=== PATIENT | female | born 1950 | race Caucasian/White ===

== ENCOUNTER 2019-03-15 12:18 | Emergency (ER) | payer MEDICARE ==
--- NOTE | 2019-03-15 12:23 | ERPHSYRPT ---
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 pt states the puncture site on right palmar aspect of index finger continues to ooze blood. that is why she came. pt states she only take one baby asa a day. no other anticoag tx. pt states her tetanus status is utd. Timing/Duration: today Quality: painful Severity: mild Location: hands (right index finger) Possible Causes: other (dog bite) Associated Symptoms: denies symptoms Allergies/Adverse Reactions: Penicillins Allergy (Verified 03/15/19 12:26) - Review of Systems Constitutional: No Symptoms Eyes: No Symptoms Ears, Nose, & Throat: No Symptoms Respiratory: No Symptoms Cardiac: No Symptoms Abdominal/Gastrointestinal: No Symptoms Genitourinary Symptoms: No Symptoms Musculoskeletal: No Symptoms Skin: Other (slow ooze from bite site right index finger) Neurological: No Symptoms Psychological: No Symptoms Endocrine: No Symptoms Hematologic/Lymphatic: No Symptoms Immunological/Allergic: No Symptoms All Other Systems: Reviewed and Negative - Past Medical History Neurological History: No Pertinent History ENT History: No Pertinent History Cardiac History: No Pertinent History Respiratory History: No Pertinent History Endocrine Medical History: No Pertinent History Musculoskeletal History: No Pertinent History GI Medical History: No Pertinent History History: No Pertinent History Psycho-Social History: No Pertinent History Female Reproductive Disorders: No Pertinent History - Past Surgical History Neuro Surgical History: No Pertinent History Cardiac: No Pertinent History Respiratory: No Pertinent History Gastrointestinal: No Pertinent History Genitourinary: No Pertinent History Musculoskeletal: No Pertinent History Female Surgical History: No Pertinent History Significant Family History: no pertinent family hx - Nursing Vital Signs Nursing Vital Signs: Initial Vital Signs Temperature 97.3 F 03/15/19 12:28 Pulse Rate 79 03/15/19 12:28 Respiratory Rate 16 03/15/19 12:28 Blood Pressure 121/63 03/15/19 12:28 O2 Sat by Pulse Oximetry 99 03/15/19 12:28 Pain Scale Pain Intensity 10 - Physical Exam General Appearance: no apparent distress, alert, anxiety Eye Exam: PERRL/EOMI Ears, Nose, Throat Exam: normal ENT inspection, moist mucous membranes Neck Exam: normal inspection, non-tender, supple, full range of motion Respiratory Exam: No chest tenderness Gastrointestinal/Abdomen Exam: No tenderness Pelvic Exam: not done Rectal Exam: not done Back Exam: normal inspection, normal range of motion, No CVA tenderness, No vertebral tenderness Extremity Exam: normal range of motion, pelvis stable, other (nv intact, tendon function intact) Neurologic Exam: alert, oriented x 3, cooperative, 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 slow ooze from bite site) Lymphatic Exam: No adenopathy SpO2 Interpretation: normal O2 Delivery: Room Air - Course Nursing assessment & vital signs reviewed: Yes - Progress Counseled pt/family regarding: diagnosis - Departure Departure Disposition: Home Clinical Impression: Dog bite of index finger Condition: Stable Critical Care Time: No Referrals: SAY OLIVAS [Primary Care Provider] - Additional Instructions: keep pressure dressing in place until the morning of 03/17/2019. after morning of 03/17/2019, may remove dressing and clean daily with soap and water. take medications as prescribed. Prescriptions: Doxycycline Hyclate 100 mg [Vibramycin 100 MG] 100 mg PO BID #14 tab
[2019-03-15 14:05] VITALS: BP 136/76; PULSE 70; O2SAT 97
== END 2019-03-15 14:10 | disposition home or self-care (01) ==
LOC: ED 12:18
DX: S61.250A Open bite of right index finger without damage to nail, initial encounter (principal); W54.0XXA Bitten by dog, initial encounter
CPT/HCPCS: 99283

== ENCOUNTER 2020-04-26 10:07 | Day surgery (SDC) | payer MEDICARE ==
[2020-04-26] MEDS ORDERED: BUPIVACAINE 0.5% VIAL IJ ONE (10:08)
[2020-04-26] MEDS ORDERED: Depo-Medrol 40 MG/ML IM ONE (10:08)
[2020-04-26] MEDS ORDERED: Lactated Ringers 1,000 ML IV ONE (10:08)
[2020-04-26] MEDS ORDERED: DIPRIVAN 200 MG/20 ML IV ONE (11:36)
[2020-04-26] MEDS ORDERED: Ketamine HCl 50 MG/ML ONE (11:37)
--- NOTE | 2020-04-26 12:17 | XRAY ---
Indication: Bilateral SI joint injection. Intraoperative fluoroscopy provided for 26 seconds. 4 digital spot images submitted for interpretation demonstrate posterior needle tip projecting over the inferior left and right SI joint. Correlate with intraoperative findings/report. Incidental bilateral tubal ligation clips.
--- NOTE | 2020-04-26 12:29 | XRAY ---
26 seconds fluoroscopy time in surgery for bilateral SI joint injections.
== END 2020-04-26 12:06 | disposition home or self-care (01) ==
LOC: SDC-PAIN 10:07
PROVIDERS: ATTEND Psychiatry & Neurology Pain Medicine
DX: M46.1 Sacroiliitis, not elsewhere classified (principal); I10 Essential (primary) hypertension; E78.5 Hyperlipidemia, unspecified; G47.30 Sleep apnea, unspecified; K21.9 Gastro-esophageal reflux disease without esophagitis; K58.9 Irritable bowel syndrome, unspecified; Z79.899 Other long term (current) drug therapy
CPT/HCPCS: 27096; 72202; 77002; G0260; J1030; J2704

== ENCOUNTER 2020-06-14 14:12 | Day surgery (SDC) | payer MEDICARE ==
[2020-06-14] MEDS ORDERED: BUPIVACAINE 0.5% VIAL IJ ONE (14:13)
[2020-06-14] MEDS ORDERED: Depo-Medrol 40 MG/ML IM ONE (14:13)
[2020-06-14] MEDS ORDERED: DIPRIVAN 200 MG/20 ML IV ONE (15:17)
[2020-06-14] MEDS ORDERED: Lactated Ringers 1,000 ML IV ONE (16:06)
--- NOTE | 2020-06-14 16:26 | XRAY ---
Indication: Bilateral hip injection. Intraoperative fluoroscopy provided for 28 seconds. 3 digital spot images submitted for interpretation demonstrates needle tip projecting just lateral to the left and right greater trochanter. Small amount of contrast injected for both needle tip placement. Correlate with intraoperative findings/report.
--- NOTE | 2020-06-14 16:34 | XRAY ---
28 seconds fluoroscopy time in surgery for injections of the greater trochanter of both hips.
== END 2020-06-14 15:41 | disposition home or self-care (01) ==
LOC: SDC-PAIN 14:12
PROVIDERS: ATTEND Psychiatry & Neurology Pain Medicine
DX: M70.62 Trochanteric bursitis, left hip (principal); M70.61 Trochanteric bursitis, right hip; I10 Essential (primary) hypertension; E78.5 Hyperlipidemia, unspecified; K21.9 Gastro-esophageal reflux disease without esophagitis; Z79.899 Other long term (current) drug therapy
CPT/HCPCS: 73521; 77002; J1030; J2704

== ENCOUNTER 2020-07-26 14:00 | Day surgery (SDC) | payer MEDICARE ==
[2020-07-26] MEDS ORDERED: Depo-Medrol 40 MG/ML IM ONE (14:01)
[2020-07-26] MEDS ORDERED: Xylocaine 1% Vial 30 ML PF IJ ONE (14:01)
[2020-07-26] MEDS ORDERED: BUPIVACAINE 0.5% VIAL IJ ONE (14:01)
[2020-07-26] MEDS ORDERED: DIPRIVAN 200 MG/20 ML IV ONE ×2 (15:27→15:50)
[2020-07-26] MEDS ORDERED: Lactated Ringers 1,000 ML IV ONE (16:05)
--- NOTE | 2020-07-26 17:03 | XRAY ---
36 seconds of fluoroscopy was used in surgery for a right SI joint RFA.
--- NOTE | 2020-07-26 17:04 | XRAY ---
Indication: Right SI joint RFA. Intraoperative fluoroscopy provided for 36 seconds. 3 digital spot image submitted for interpretation demonstrate 4 posterior needle tips projecting over the right sacrum. Correlate with intraoperative findings/report.
== END 2020-07-26 16:15 | disposition home or self-care (01) ==
LOC: SDC-PAIN 14:00
PROVIDERS: ATTEND Psychiatry & Neurology Pain Medicine
DX: M47.816 Spondylosis without myelopathy or radiculopathy, lumbar region (principal); G47.30 Sleep apnea, unspecified; N39.0 Urinary tract infection, site not specified; K21.9 Gastro-esophageal reflux disease without esophagitis; I10 Essential (primary) hypertension; E78.5 Hyperlipidemia, unspecified; Z79.899 Other long term (current) drug therapy
CPT/HCPCS: 64625; 72202; 77002; J1030; J2001; J2704

== ENCOUNTER 2021-02-21 14:58 | Emergency (ER) | payer MEDICARE ==
--- NOTE | 2021-02-21 15:44 | ERPHSYRPT ---
- History of Present Illness Source: patient Exam Limitations: no limitations Patient Subjective Stated Complaint: Pt c/o of being sick since 02/06 and not getting any better, pt went to [facility] on 02/12 and was told that she had the flu and was given a steroid shot and some medicine, Friday pt went to [facility] and had an x-ray and was told that she had pnuemonia in LLL and was given an inhaler, antibiotic, and tessalon pearles Triage Nursing Assessment: Pt brought self to the ER, hypertensive, rates chest pain when she coughs as 8/10, decreased appetite, drinking a lot, pulses normal, headache, sore throat, cough, chest tightness, SOB, nothing has helped, lungs clear Physician History: 70 yo wf w cough/ST/KING/increasing dyspnea since 02/06/21. Pt has had neg CV19 tests x2 and just finished a course of Doxycycline. She denies fever/N/V/D/chest pain. Pt does not smoke. Timing/Duration: other (02/06/21) Cough Quality/Degree: dry cough Possible Cause: no prior episodes Modifying Factors: Improves With: coughing, exertion Associated Symptoms: cough, headache, nasal congestion, nasal drainage, shor tness of breath, sore throat, No fever, No chills, No chest pain/soreness, No dizziness, No earache, No facial pain, No lightheadedness, No muscle aches, No sinus infection, No wheezing Allergies/Adverse Reactions: Penicillins Allergy (Verified 02/21/21 15:15) Home Medications: Albuterol Sulfate [Albuterol Sulfate Hfa] 2 inh PO Q4H 02/21/21 [History] Alosetron HCl 0.5 mg PO DAILY 02/21/21 [History] Amitriptyline HCl 10 mg [Elavil 10 mg] 10 mg PO DAILY 02/21/21 [History] Aspirin EC 81 mg [Ecotrin 81 mg] 81 mg PO DAILY 02/21/21 [History] Atorvastatin Calcium 10 mg PO DAILY 02/21/21 [History] Benzonatate 200 mg PO TID 02/21/21 [History] Colestipol HCl [Colestid] 1 gm PO BID 02/21/21 [History] Fludrocortisone Acetate 0.1 mg PO DAILY 02/21/21 [History] Fluticasone Propionate [Flonase NASAL] 1 gm NS UD 02/21/21 [History] Midodrine HCl 10 mg PO TID 02/21/21 [History] Hx Tetanus, Diphtheria Vaccination/Date Given: Yes Hx Influenza Vaccination/Date Given: Yes Hx Pneumococcal Vaccination/Date Given: Yes Travel Risk - International Travel Have you traveled outside of the country in past 3 weeks: No - Coronavirus Screening Are you exhibiting any of the following symptoms?: Yes Symptoms: Cough: New Onset, Shortness of Breath, Headaches/Body Aches/Fatigue - Vaccine Status Have you recieved a Covid-19 vaccination: 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 - Vaccination Dates Date of 2cond Vaccination (if applicable): 06/2020 - Review of Systems Constitutional: No Symptoms, Fatigue, Lethargy Eyes: No Symptoms Ears, Nose, & Throat: No Symptoms, Nose Congestion, Nose Discharge, Throat Pain Respiratory: No Symptoms, Cough, Dyspnea Cardiac: No Symptoms Abdominal/Gastrointestinal: No Symptoms Genitourinary Symptoms: No Symptoms Musculoskeletal: No Symptoms Skin: No Symptoms Neurological: No Symptoms Psychological: No Symptoms Endocrine: No Symptoms Hematologic/Lymphatic: No Symptoms Immunological/Allergic: No Symptoms - Past Medical History Pertinent Past Medical History: Yes Neurological History: Migraines ENT History: No Pertinent History Cardiac History: Other Respiratory History: No Pertinent History Endocrine Medical History: No Pertinent History Musculoskeletal History: Arthritis GI Medical History: Irritable Bowel History: No Pertinent History Psycho-Social History: No Pertinent History Female Reproductive Disorders: No Pertinent History Other Medical History: orthostatic hypotension - Past Surgical History Past Surgical History: Yes Neuro Surgical History: No Pertinent History Cardiac: No Pertinent History Respiratory: No Pertinent History Gastrointestinal: Cholecystectomy Genitourinary: No Pertinent History Musculoskeletal: No Pertinent History Female Surgical History: Hysterectomy Other Surgical History: breast reduction and lift, foot - Social History Smoking Status: Never smoker Exposure to second hand smoke: No Drug Use: none Patient Lives Alone: No Significant Family History: no pertinent family hx - Female History Hx Now: No - Nursing Vital Signs Nursing Vital Signs: Initial Vital Signs Temperature 98.3 F 02/21/21 15:01 Pulse Rate 81 02/21/21 15:01 Respiratory Rate 18 02/21/21 15:01 Blood Pressure 178/64 02/21/21 15:01 O2 Sat by Pulse Oximetry 99 02/21/21 15:01 Pain Scale Pain Intensity 2 Hypertensive - Physical Exam General Appearance: no apparent distress Eye Exam: PERRL/EOMI, eyes nml inspection Ears, Nose, Throat Exam: normal ENT inspection, TMs normal, pharynx normal, moist mucous membranes Neck Exam: normal inspection, non-tender, supple, full range of motion, No meningismus, No mass, No Brudzinski, No Kernig's, No carotid bruit Respiratory Exam: normal breath sounds, lungs clear, airway intact, No respiratory distress Cardiovascular Exam: regular rate/rhythm, normal heart sounds, normal peripheral pulses, No murmur Gastrointestinal/Abdomen Exam: soft, normal bowel sounds, No tenderness Back Exam: normal inspection, normal range of motion, No CVA tenderness Extremity Exam: normal inspection, normal range of motion, No pedal edema, No swelling, No tenderness Neurologic Exam: alert, oriented x 3, cooperative, 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, normal mood/affect, nml cerebellar function, nml station & gait Skin Exam: normal color, warm, dry, No rash Lymphatic Exam: No adenopathy SpO2 Interpretation: normal SpO2: 96 O2 Delivery: Room Air - Course EKG Interpreted by Me: RATE (NSR/R81/Mildly prolonged QTc/LAFB/Low voltage) Ordered Tests: Active Orders 24 hr Category Date Time Status EKG-ER Only STAT Care 02/21/21 15:21 Completed CHEST 1 VIEW (PORTABLE) Stat Exams 02/21/21 15:22 Completed CHEST WITHOUT CONTRAST [CT] Stat Exams 02/21/21 16:34 Completed CBC W DIFF Stat Lab 02/21/21 15:30 Completed CMP Stat Lab 02/21/21 15:30 Completed NT PRO BNP Stat Lab 02/21/21 15:30 Completed PROTIME WITH INR Stat Lab 02/21/21 15:30 Completed PTT Stat Lab 02/21/21 15:30 Completed TROPONIN Q3H Lab 02/21/21 15:30 Completed Medication Summary Discontinued Medications Generic Name Dose Route Start Last Admin Trade Name Freq PRN Reason Stop Dose Admin Hydrocodone Bitart/Acetaminophen 10 ml 02/21/21 16:14 02/21/21 16:17 Hydrocodone/Acetaminophen 5 Ml Udcup PO 02/21/21 16:15 10 ml STAT STA Administration Hydrocodone Bitart/Acetaminophen Confirm 02/21/21 16:16 Hydrocodone/Acetaminophen 5 Ml Udcup Administered 02/21/21 16:17 Dose 10 ml .ROUTE .[facility] Lab/Rad Data: Laboratory Result Diagrams 02/21/21 15:30 02/21/21 15:30 Laboratory Results 02/21/21 02/21/21 02/21/21 Range/Units 15:42 15:30 15:30 WBC (4.0-10.5) K/mm3 RBC (4.1-5.4) M/mm3 Hgb (12.0-16.0) gm/dl Hct (35-47) % MCV (78-100) fl MCH (26-32) pg MCHC (32-36) g/dl RDW (11.5-14.0) % Plt Count (150-450) K/mm3 MPV (7.5-11.0) fl Gran % (36.0-66.0) % Eos # (Auto) (0-0.5) Absolute Lymphs (auto) (1.0-4.6) Absolute Monos (auto) (0.0-1.3) Lymphocytes % (24.0-44.0) % Monocytes % (0.0-12.0) % Eosinophils % (0.00-5.0) % Basophils % (0.0-0.4) % Absolute Granulocytes (1.4-6.9) Basophils # (0-0.4) PT 12.0 (9.4-12.5) SECONDS INR 1.02 (0.8-3.0) APTT 39.2 H (25.1-36.5) SECONDS Sodium (137-145) mmol/L Potassium (3.5-5.1) mmol/L Chloride (98-107) mmol/L Carbon Dioxide (22-30) mmol/L Anion Gap (5-15) MEQ/L BUN (7-17) mg/dL Creatinine (0.52-1.04) mg/dL Estimated GFR ML/MIN Glucose (74-106) mg/dL Calcium (8.4-10.2) mg/dL Total Bilirubin (0.2-1.3) mg/dL AST (14-36) U/L ALT (0-35) U/L Alkaline Phosphatase (38-126) U/L Troponin I < 0.012 (0.000-0.034) ng/mL NT-Pro-B Natriuret Pep (0-900) pg/mL Serum Total Protein (6.3-8.2) g/dL Albumin (3.5-5.0) g/dL Influenza Type A Ag NEGATIVE (NEGATIVE) Influenza Type B Ag NEGATIVE (NEGATIVE) RSV (PCR) NEGATIVE (Negative) SARS-CoV-2 (PCR) NEGATIVE (NEGATIVE) 02/21/21 02/21/21 Range/Units 15:30 15:30 WBC 7.2 (4.0-10.5) K/mm3 RBC 4.47 (4.1-5.4) M/mm3 Hgb 14.1 (12.0-16.0) gm/dl Hct 42.2 (35-47) % MCV 94.4 (78-100) fl MCH 31.5 (26-32) pg MCHC 33.4 (32-36) g/dl RDW 13.0 (11.5-14.0) % Plt Count 267 (150-450) K/mm3 MPV 10.6 (7.5-11.0) fl Gran % 59.3 (36.0-66.0) % Eos # (Auto) 0.17 (0-0.5) Absolute Lymphs (auto) 2.07 (1.0-4.6) Absolute Monos (auto) 0.66 (0.0-1.3) Lymphocytes % 28.8 (24.0-44.0) % Monocytes % 9.2 (0.0-12.0) % Eosinophils % 2.4 (0.00-5.0) % Basophils % 0.3 (0.0-0.4) % Absolute Granulocytes 4.27 (1.4-6.9) Basophils # 0.02 (0-0.4) PT (9.4-12.5) SECONDS INR (0.8-3.0) APTT (25.1-36.5) SECONDS Sodium 142 (137-145) mmol/L Potassium 3.4 L (3.5-5.1) mmol/L Chloride 106 (98-107) mmol/L Carbon Dioxide 25 (22-30) mmol/L Anion Gap 14.7 (5-15) MEQ/L BUN 19 H (7-17) mg/dL Creatinine 0.67 (0.52-1.04) mg/dL Estimated GFR > 60.0 ML/MIN Glucose 135 H (74-106) mg/dL Calcium 10.2 (8.4-10.2) mg/dL Total Bilirubin 0.70 (0.2-1.3) mg/dL AST 30 (14-36) U/L ALT 25 (0-35) U/L Alkaline Phosphatase 51 (38-126) U/L Troponin I (0.000-0.034) ng/mL NT-Pro-B Natriuret Pep 203 (0-900) pg/mL Serum Total Protein 7.3 (6.3-8.2) g/dL Albumin 4.7 (3.5-5.0) g/dL Influenza Type A Ag (NEGATIVE) Influenza Type B Ag (NEGATIVE) RSV (PCR) (Negative) SARS-CoV-2 (PCR) (NEGATIVE) - Progress Progress Note: 02/21/21 18:11 Wells Criteria for PE 0.0 02/21/21 20:35 Cough med given in ER Counseled pt/family regarding: lab results, diagnosis, need for follow-up, rad results - Departure Departure Disposition: Home Clinical Impression: Cough Condition: Stable Critical Care Time: No Referrals: SAY RENTERIA [Primary Care Provider] - Follow up/PCP as directed Instructions: Cough, Adult (DC) Additional Instructions: Follow up with your family MD in 1-2 days Start Levaquin once a day for 5 days Tussionex as needed for cough Return to ER for chest pain/worsening cough/Increasing shortness of breath/Temperature greater than 100.5 Prescriptions: Hydrocodone/Chlorphen P-Stirex [Hydrocodone-Chlorph ER Susp (TUSSIONEX)] 5 ml PO [id number] PRN 6 Days #60 ml MDD 10 ML PRN Reason: Cough Levofloxacin [Levofloxacin 500 MG Tablet] 500 mg PO DAILY #5 tablet
[2021-02-21 15:45] LABS: Absolute Neutrophil Ct (ANC) 4.27 (1.4-6.9); Basophil (Absolute #) 0.02 (0-0.4); Eosinophil % 2.4 % (0.00-5.0); Eosinophil (Absolute #) 0.17 (0-0.5); Hematocrit 42.2 % (35-47); Hemoglobin 14.1 gm/dl (12.0-16.0); Lymphocyte (Absolute #) 2.07 (1.0-4.6); Lymphocytes % 28.8 % (24.0-44.0); Mean Cell Volume 94.4 fl (78-100); Mean Corpuscular Hemoglobin 31.5 pg (26-32); Mean Corpuscular Hgb Concent. 33.4 g/dl (32-36); Mean Platelet Volume 10.6 fl (7.5-11.0); Monocyte (Absolute #) 0.66 (0.0-1.3); Monocytes % 9.2 % (0.0-12.0); Neutrophil % 59.3 % (36.0-66.0); Platelet Count 267 K/mm3 (150-450); Red Blood Count 4.47 M/mm3 (4.1-5.4); White Blood Count 7.2 K/mm3 (4.0-10.5)
[2021-02-21 15:53] LABS: INR 1.02 (0.8-3.0)
[2021-02-21 15:55] LABS: PTT 39.2 SECONDS (25.1-36.5)
[2021-02-21 16:07] LABS: ALBUMIN 4.7 g/dL (3.5-5.0); ALKALINE PHOSPHATASE 51 U/L (38-126); ANION GAP 14.7 MEQ/L (5-15); BLOOD UREA NITROGEN 19 mg/dL (7-17); CHLORIDE 106 mmol/L (98-107); Calcium 10.2 mg/dL (8.4-10.2); Carbon Dioxide 25 mmol/L (22-30); Creatinine 1 0.67 mg/dL (0.52-1.04); EST GLOMERULAR FILTRATION RATE > 60.0 ML/MIN; Glucose 135 mg/dL (74-106); NT PRO BNP 203 pg/mL (0-900); Potassium 3.4 mmol/L (3.5-5.1); SGOT/AST 30 U/L (14-36); SGPT/ALT 25 U/L (0-35); SODIUM 142 mmol/L (137-145); Total Protein 7.3 g/dL (6.3-8.2)
--- NOTE | 2021-02-21 16:07 | XRAY ---
Indication: Cough. Comparison: October 23, 2018. Portable chest lest inflated with new minimal left base subsegmental atelectasis/scarring. Remaining heart and lungs unremarkable again with incidental left calcified granulomas. Bony thorax intact again with mild osteopenia. Impression: Nonacute chest with chronic features.
[2021-02-21] MEDS ORDERED: HYDROCODONE-ACETAMIN 2.5-108/5 ML SOLUTION PO STA (16:14)
[2021-02-21] MEDS ORDERED: HYDROCODONE-ACETAMIN 2.5-108/5 ML SOLUTION ONE (16:16)
[2021-02-21 16:22] LABS: INFLUENZA A NEGATIVE (NEGATIVE); INFLUENZA B NEGATIVE (NEGATIVE); RESPIRATORY SYNCTIAL VIRUS NEGATIVE (Negative); SARS-CoV-2 Xpert Express NEGATIVE (NEGATIVE)
--- NOTE | 2021-02-21 17:24 | XRAY ---
Indication: Chronic cough. Short of breath. Pneumonia. Multiple contiguous axial images obtained through the chest without contrast. Comparison: None Lungs demonstrates minimal bibasilar fibrosis/scarring and tiny left lower lobe calcified granuloma. No suspicious pulmonary mass, infiltrate, or effusion. Heart not enlarged. Aorta is normal in course and caliber. [place] left hilar calcified nodes. Small hiatal hernia. Bony thorax intact. Limited upper abdomen demonstrates hepatic/splenic calcified granulomas. Impression: 1. Small hiatal hernia and old granulomatous disease. 2. Remaining CT chest without contrast exam is negative.
[2021-02-21 17:38] VITALS: O2SAT 96
[2021-02-21 18:20] VITALS: BP 160/76; PULSE 78
== END 2021-02-21 18:21 | disposition home or self-care (01) ==
LOC: ED 14:58
DX: R05.1 Acute cough (principal); J02.9 Acute pharyngitis, unspecified; R51.9 Headache, unspecified; R06.00 Dyspnea, unspecified; R09.81 Nasal congestion; I95.1 Orthostatic hypotension; Z79.891 Long term (current) use of opiate analgesic; Z79.899 Other long term (current) drug therapy; R07.89 Other chest pain
CPT/HCPCS: 0241U; 36415; 71045; 71250; 80053; 83880; 84484; 85025; 85610; 85730; 93005; 99284; A9270-GY

== ENCOUNTER 2021-04-04 07:02 | Day surgery (SDC) | payer MEDICARE ==
[2021-04-04] MEDS ORDERED: Sodium Chloride 0.9% 10 ML FLUSH Syringe IJ ONE (07:03)
[2021-04-04] MEDS ORDERED: Depo-Medrol 40 MG/ML IM ONE ×2 (07:03)
[2021-04-04] MEDS ORDERED: BUPIVACAINE 0.5% VIAL IJ ONE (07:03)
[2021-04-04] MEDS ORDERED: DIPRIVAN 200 MG/20 ML IV ONE (08:36)
[2021-04-04] MEDS ORDERED: Lactated Ringers 1,000 ML IV ONE (09:03)
--- NOTE | 2021-04-04 10:24 | XRAY ---
Indication: Left greater trochanter bursa injection. Intraoperative fluoroscopy provided for 9 seconds. Single digital spot image obtained prone submitted for interpretation demonstrates needle tip lateral to the left greater trochanter. Small amount of contrast injected for needle tip placement. Correlate with intraoperative findings/report.
--- NOTE | 2021-04-04 10:33 | XRAY ---
Indication: Left L3-L5 transforaminal EVELIA. Intraoperative fluoroscopy provided for 24 seconds. 4 digital spot images submitted for interpretation demonstrates posterior needle tips projecting over the expected left L3 and L4 nerve root. Small amount of contrast injected for needle tip placement. Correlate with intraoperative findings/report.
--- NOTE | 2021-04-04 10:33 | XRAY ---
9 seconds fluoroscopy time in surgery for injection of the left hip greater trochanteric bursa.
--- NOTE | 2021-04-04 10:33 | XRAY ---
24 seconds fluoroscopy time in surgery for left L3-L5 transforaminal EVELIA.
== END 2021-04-04 09:05 | disposition home or self-care (01) ==
LOC: SDC-PAIN 07:02
PROVIDERS: ATTEND Psychiatry & Neurology Pain Medicine
DX: M54.16 Radiculopathy, lumbar region (principal); M16.12 Unilateral primary osteoarthritis, left hip; I10 Essential (primary) hypertension; Z79.899 Other long term (current) drug therapy
CPT/HCPCS: 20610; 64483; 64484; 72100; 73501; 77002; 77003; J1030; J2704; Q9966

== ENCOUNTER 2021-09-26 09:32 | Day surgery (SDC) | payer MEDICARE ==
[2021-09-26] MEDS ORDERED: Marcaine Mpf 0.5% Vial 30 Ml IJ ONE (09:33)
[2021-09-26] MEDS ORDERED: Depo-Medrol 40 MG/ML IM ONE (09:33)
[2021-09-26] MEDS ORDERED: Sodium Chloride 0.9(Preservative Free) 10 ML IJ ONE (09:33)
[2021-09-26] MEDS ORDERED: Xylocaine-Mpf 2% 5 Ml Vial ONE (11:05)
[2021-09-26] MEDS ORDERED: Lactated Ringers 1,000 ML IV ONE (11:16)
[2021-09-26] MEDS ORDERED: DIPRIVAN 200 MG/20 ML IV ONE (11:26)
--- NOTE | 2021-09-26 16:36 | XRAY ---
Indication: Left L3-L5 transforaminal EVELIA. Intraoperative fluoroscopy provided for 16 seconds. 3 digital spot image submitted for interpretation demonstrates posterior needle tips projecting over the expected left L3 and L4 nerve roots. Small amount of contrast injected for needle tip placement. Correlate with intraoperative findings/report.
--- NOTE | 2021-09-26 16:38 | XRAY ---
Indication: Left hip injection. Intraoperative fluoroscopy provided for 7 seconds. Single digital spot image obtained prone submitted for interpretation demonstrates needle tip lateral to the left greater trochanter. Small amount of contrast injected for needle tip placement. Correlate with intraoperative findings/report.
--- NOTE | 2021-09-26 16:46 | XRAY ---
16 seconds fluoroscopy time in surgery for left L3-L5 transforaminal EVELIA.
--- NOTE | 2021-09-26 16:47 | XRAY ---
7 seconds fluoroscopy time in surgery for injection of the greater trochanter of the left hip..
== END 2021-09-26 11:30 | disposition home or self-care (01) ==
LOC: SDC-PAIN 09:32
PROVIDERS: ATTEND Psychiatry & Neurology Pain Medicine
DX: M54.16 Radiculopathy, lumbar region (principal); M16.12 Unilateral primary osteoarthritis, left hip; Z79.899 Other long term (current) drug therapy
CPT/HCPCS: 20610; 64483; 64484; 72100; 73501; 77002; 77003; J1030; J2704; Q9966

== ENCOUNTER 2021-12-07 10:11 | Inpatient (IN) | payer MEDICARE ==
[2021-12-07] MEDS ORDERED: Sodium Chloride 0.9% 1000 ML 1,000 ML IV STA (10:58)
[2021-12-07] MEDS ORDERED: Zofran 4 MG/2 ML VIAL IV ONE (10:58)
[2021-12-07] MEDS ORDERED: Zofran 4 MG/2 ML VIAL ONE (11:00)
[2021-12-07] MEDS ORDERED: Sodium Chloride 0.9% 1000 ML 1,000 ML ONE ×3 (11:00→22:03)
[2021-12-07 11:16] LABS: Absolute Neutrophil Ct (ANC) 7.17 x10^3/uL (1.4-6.9); Basophil (Absolute #) 0.05 x10^3/uL (0-0.4); Eosinophil % 2.4 % (0.00-5.0); Eosinophil (Absolute #) 0.23 x10^3/uL (0-0.5); Hematocrit 38.8 % (35-47); Hemoglobin 12.7 g/dL (12.0-16.0); Lymphocyte (Absolute #) 1.37 x10^3/uL (1.0-4.6); Mean Cell Volume 97.7 fL (78-100); Mean Corpuscular Hgb Concent. 32.7 g/dL (32-36); Mean Platelet Volume 10.1 fL (7.5-11.0); Monocyte (Absolute #) 0.89 x10^3/uL (0.0-1.3); Monocytes % 9.1 % (0.0-12.0); Neutrophil % 73.4 % (36.0-66.0); Platelet Count 270 x10^3/uL (150-450); Red Blood Count 3.97 x10^6/uL (4.1-5.4); Red Cell Distribution Width 12.5 % (11.5-14.0); White Blood Count 9.8 x10^3/uL (4.0-10.5)
[2021-12-07 11:29] LABS: ALBUMIN 4.3 g/dL (3.5-5.0); ALKALINE PHOSPHATASE 59 U/L (38-126); ANION GAP 15.8 MEQ/L (5-15); BLOOD UREA NITROGEN 15 mg/dL (7-17); CHLORIDE 107 mmol/L (98-107); Calcium 9.3 mg/dL (8.4-10.2); Carbon Dioxide 21 mmol/L (22-30); EST GLOMERULAR FILTRATION RATE > 60.0 ML/MIN; Glucose 115 mg/dL (74-106); LIPASE 83 U/L (23-300); Potassium 3.6 mmol/L (3.5-5.1); SGOT/AST 21 U/L (14-36); SGPT/ALT 14 U/L (0-35); SODIUM 140 mmol/L (137-145); Total Protein 7.5 g/dL (6.3-8.2)
[2021-12-07] MEDS ORDERED: Sodium Chloride 0.9% 1000 ML 1,000 ML IV SCH (12:15)
[2021-12-07 12:30] LABS: Appearance SLIGHTLY CLOUDY (CLEAR); Bilirubin NEGATIVE (NEGATIVE); Glucose NEGATIVE (NEGATIVE)
[2021-12-07 12:31] LABS: Dipstick done @ ? MAIN LAB; Ketones TRACE (NEGATIVE); Nitrite POSITIVE (NEGATIVE); Protein,Urine Dip NEGATIVE (Negative); RBC MODERATE Ery/ul (0-5); Urobilinogen 0.2 mg/dL (0-1)
[2021-12-07 12:37] LABS: Bacteria MANY /HPF (NEGATIVE); Epithelial Cells RARE /HPF (FEW); Mucus SLIGHT /HPF (NEGATIVE); WBC >100 /HPF (0-5)
[2021-12-07 12:39] LABS: Urine Cultured Indicated? YES
--- NOTE | 2021-12-07 12:51 | XRAY ---
Indication: Lower abdomen cramping and diarrhea. Multiple contiguous axial images obtained through the abdomen and pelvis without contrast. Comparison: November 12, 2020 Lung bases again demonstrates pulmonary emphysema with minimal left base fibrosis/scarring. Heart not enlarged. Stable small hiatal hernia. Noncontrasted stomach and bowel loops remains nonobstructed. Normal appendix. Colonic radiopacities again either ingested medication, bismuth, or barium. There remains scattered descending and sigmoid diverticulosis. Sigmoid colon now demonstrates moderate wall thickening with minimal stranding favoring diverticulitis. Tiny free fluid presumed reactive but no walled off fluid collection or free air. Again small exophytic right renal cyst, hepatic/splenic ossified granulomas, cholecystectomy, and bilateral pelvic surgical clips. Remaining liver, pancreas, spleen, adrenal glands, kidneys, ureters, bladder, and aorta are unremarkable for noncontrast exam. Impression: 1. Again colonic diverticulosis with new CT findings as detailed favoring moderate sigmoid diverticulitis with tiny free fluid. 2. Again small hiatal hernia, right renal cyst, and old granulomatous disease.
[2021-12-07] MEDS ORDERED: TYLENOL 325 MG PO STA (12:52)
[2021-12-07] MEDS ORDERED: FLAGYL 500 MG IVPB 500 MG/100 ML BAG IV STA (12:58)
[2021-12-07] MEDS ORDERED: TYLENOL 325 MG ONE (12:58)
[2021-12-07] MEDS ORDERED: LEVOFLOXACIN 750MG/150ML D5W 750 MG/150 ML BAG IV STA (12:58)
[2021-12-07] MEDS ORDERED: LEVOFLOXACIN 750MG/150ML D5W 750 MG/150 ML BAG IV ONE (13:03)
[2021-12-07 13:51] LABS: INFLUENZA A NEGATIVE (NEGATIVE); INFLUENZA B NEGATIVE (NEGATIVE); RESPIRATORY SYNCTIAL VIRUS NEGATIVE (Negative); SARS-CoV-2 Xpert Express NEGATIVE (NEGATIVE)
--- NOTE | 2021-12-07 14:06 | ERPHSYRPT ---
- History of Present Illness Time Seen by Provider: 12/07/21 11:06 Historian: patient Exam Limitations: no limitations Patient Subjective Stated Complaint: PT states "I have irritable bowel and I had constipation for a week and I have horrible hemmrhoids and I was taking stool softners and laxatives and now my belly hurts and I have diarrhea really bad." Triage Nursing Assessment: Pt presented alert and oriented X 3, skin wpd. pt ambulates with an upright steady gait, able to speak in full complete sentences pt in no apparent respiratory distress. pt will moan every now and then. Physician History: 70 years old female with a history of irritable bowel syndrome predominant diarrhea presented in the ER having multiple episodes of loose to watery stool since yesterday with progressive worsening. Patient reports she took some stool softener yesterday and her diarrhea got really worse and has some blood-tinged w hich she thinks is more of because of her hemorrhoids. She is complaining of generalized cramping which comes and goes. No fever or chills reported. No nausea or vomiting. Reports having similar symptoms in the past as well. While in the ER before I interviewed patient she had to go back and forth to the bathroom 3-4 times. No history of C. difficile in the past. Timing/Duration: yesterday, intermittent, gradual onset, worse Activities at Onset: rest Quality: cramping Abdominal Pain Onset Location: generalized abdomen Pain Radiation: no radiation Severity of Pain-Max: moderate Severity of Pain-Current: mild Modifying Factors: Worsens With: defecating Associated Symptoms: diarrhea, fatigue, weakness, No nausea, No shortness of breath Previous symptoms: same symptoms as today Allergies/Adverse Reactions: Penicillins Allergy (Verified 02/21/21 15:15) Home Medications: Albuterol Sulfate [Albuterol Sulfate Hfa] 2 inh PO Q4H 02/21/21 [History] Alosetron HCl 0.5 mg PO DAILY 02/21/21 [History] Aspirin EC 81 mg [Ecotrin 81 mg] 81 mg PO DAILY 02/21/21 [History] Atorvastatin Calcium 10 mg PO DAILY 02/21/21 [History] Benzonatate 200 mg PO TID 02/21/21 [History] Colestipol HCl [Colestid] 1 gm PO BID 02/21/21 [History] Fludrocortisone Acetate 0.1 mg PO DAILY 02/21/21 [History] Fluticasone Propionate [Flonase NASAL] 1 gm NS UD 02/21/21 [History] Midodrine HCl 10 mg PO TID 02/21/21 [History] Hx Tetanus, Diphtheria Vaccination/Date Given: Yes Hx Influenza Vaccination/Date Given: Yes Hx Pneumococcal Vaccination/Date Given: Yes Immunizations Up to Date: Yes Travel Risk - International Travel Have you traveled outside of the country in past 3 weeks: No - Coronavirus Screening Are you exhibiting any of the following symptoms?: Yes Symptoms: Vomiting/Diarrhea - Vaccine Status Have you recieved a Covid-19 vaccination: Yes [place]: Moderna - Vaccination Dates Date of 2cond Vaccination (if applicable): 06/2020 - Review of Systems Constitutional: Fatigue, Weakness Eyes: No Symptoms Ears, Nose, & Throat: No Symptoms Respiratory: No Symptoms Cardiac: No Symptoms Abdominal/Gastrointestinal: Abdominal Pain, Diarrhea Genitourinary Symptoms: No Symptoms Musculoskeletal: No Symptoms Skin: No Symptoms Neurological: No Symptoms Psychological: No Symptoms Endocrine: No Symptoms Hematologic/Lymphatic: No Symptoms Immunological/Allergic: No Symptoms - Past Medical History Pertinent Past Medical History: Yes Neurological History: Migraines ENT History: No Pertinent History Cardiac History: Other Respiratory History: No Pertinent History Endocrine Medical History: No Pertinent History Musculoskeletal History: Arthritis GI Medical History: Irritable Bowel History: No Pertinent History Psycho-Social History: No Pertinent History Female Reproductive Disorders: No Pertinent History Other Medical History: orthostatic hypotension - Past Surgical History Past Surgical History: Yes Neuro Surgical History: No Pertinent History Cardiac: No Pertinent History Respiratory: No Pertinent History Gastrointestinal: Cholecystectomy Genitourinary: No Pertinent History Musculoskeletal: No Pertinent History Female Surgical History: Hysterectomy Other Surgical History: breast reduction and lift, foot - Social History Smoking Status: Never smoker Exposure to second hand smoke: No Drug Use: none Patient Lives Alone: No Significant Family History: no pertinent family hx - Nursing Vital Signs Nursing Vital Signs: Initial Vital Signs Temperature 97.3 F 12/07/21 10:38 Pulse Rate 95 H 12/07/21 10:38 Respiratory Rate 24 12/07/21 10:38 Blood Pressure 127/87 12/07/21 10:38 O2 Sat by Pulse Oximetry 97 12/07/21 10:38 Pain Scale Pain Intensity 2 - Physical Exam General Appearance: no apparent distress Eye Exam: PERRL/EOMI Ears, Nose, Throat Exam: normal ENT inspection Neck Exam: normal inspection, full range of motion Respiratory Exam: normal breath sounds, lungs clear Cardiovascular Exam: regular rate/rhythm, normal heart sounds Gastrointestinal/Abdomen Exam: soft, normal bowel sounds, tenderness (Minimal generalized) Back Exam: normal inspection, normal range of motion Extremity Exam: normal inspection, normal range of motion Neurologic Exam: alert, oriented x 3, cooperative Skin Exam: normal color SpO2 Interpretation: normal SpO2: 98 O2 Delivery: Room Air Ordered Tests: Active Orders 24 hr Category Date Time Status ABDOMEN AND PELVIS W/0 CONTRAS [CT] Stat Exams 12/07/21 12:13 Completed CBC W DIFF Stat Lab 12/07/21 11:10 Completed CMP Stat Lab 12/07/21 11:10 Completed CULTURE,URINE Stat Lab 12/07/21 12:15 Received LIPASE Stat Lab 12/07/21 11:10 Completed UA W/RFX CULTURE Stat Lab 12/07/21 12:15 Completed Transfer Order Routine Transfer 12/07/21 Ordered Medication Summary Generic Name Dose Route Start Last Admin Trade Name Freq PRN Reason Stop Dose Admin Sodium Chloride 1,000 mls @ 100 mls/hr 12/07/21 12:15 12/07/21 12:20 Sodium Chloride 0.9% 1000 Ml IV 01/06/22 12:14 100 mls/hr .Q10H SIMONA Administration Levofloxacin/Dextrose 750 mg in 150 mls @ 100 mls/hr 12/07/21 12:58 12/07/21 13:05 Levofloxacin 750mg/150ml D5w IV 12/07/21 14:27 100 ml/hr STAT STA 100 mls/hr Administration Discontinued Medications Generic Name Dose Route Start Last Admin Trade Name Freq PRN Reason Stop Dose Admin Acetaminophen 975 mg 12/07/21 12:52 12/07/21 12:59 Acetaminophen 325 Mg Tablet PO 12/07/21 12:53 975 mg STAT STA Administration Acetaminophen Confirm 12/07/21 12:58 Acetaminophen 325 Mg Tablet Administered 12/07/21 12:59 Dose 975 mg .ROUTE .STK-MED ONE Sodium Chloride 1,000 mls @ 999 mls/hr 12/07/21 10:58 12/07/21 12:18 Sodium Chloride 0.9% 1000 Ml IV 12/07/21 11:58 Infused .Q1H1M STA Infusion Sodium Chloride Confirm 12/07/21 11:00 Sodium Chloride 0.9% 1000 Ml Administered 12/07/21 11:01 Dose 1,000 mls @ ud .ROUTE .STK-MED ONE Metronidazole 500 mg in 100 mls @ 200 mls/hr 12/07/21 12:58 Flagyl 500 Mg Ivpb IV 12/07/21 13:27 STAT STA Levofloxacin/Dextrose Confirm 12/07/21 13:03 Levofloxacin 750mg/150ml D5w Administered 12/07/21 13:04 Dose 750 mg in 150 mls @ ud IV .STK-MED ONE Ondansetron HCl 4 mg 12/07/21 10:58 12/07/21 11:02 Ondansetron Hcl 4 Mg/2 Ml Vial IV 12/07/21 10:59 4 mg STAT ONE Administration Ondansetron HCl Confirm 12/07/21 11:00 Ondansetron Hcl 4 Mg/2 Ml Vial Administered 12/07/21 11:01 Dose 4 mg .ROUTE .STK-MED ONE Lab/Rad Data: Laboratory Result Diagrams 12/07/21 11:10 12/07/21 11:10 Laboratory Results 12/07/21 12/07/21 12/07/21 Range/Units 13:10 12:15 11:10 WBC (4.0-10.5) x10^3/uL RBC (4.1-5.4) x10^6/uL Hgb (12.0-16.0) g/dL Hct (35-47) % MCV (78-100) fL MCH (26-32) pg MCHC (32-36) g/dL RDW (11.5-14.0) % Plt Count (150-450) x10^3/uL MPV (7.5-11.0) fL Gran % (36.0-66.0) % Immature Gran % (Auto) (0.00-0.4) % Nucleat RBC Rel Count (0.00-0.1) % Eos # (Auto) (0-0.5) x10^3/uL Immature Gran # (Auto) (0.00-0.03) x10^3u/L Absolute Lymphs (auto) (1.0-4.6) x10^3/uL Absolute Monos (auto) (0.0-1.3) x10^3/uL Absolute Nucleated RBC (0.00-0.01) x10^3u/L Lymphocytes % (24.0-44.0) % Monocytes % (0.0-12.0) % Eosinophils % (0.00-5.0) % Basophils % (0.0-0.4) % Absolute Granulocytes (1.4-6.9) x10^3/uL Basophils # (0-0.4) x10^3/uL Sodium 140 (137-145) mmol/L Potassium 3.6 (3.5-5.1) mmol/L Chloride 107 (98-107) mmol/L Carbon Dioxide 21 L (22-30) mmol/L Anion Gap 15.8 H (5-15) MEQ/L BUN 15 (7-17) mg/dL Creatinine 0.80 (0.52-1.04) mg/dL Estimated GFR > 60.0 ML/MIN Glucose 115 H (74-106) mg/dL Calcium 9.3 (8.4-10.2) mg/dL Total Bilirubin 1.20 (0.2-1.3) mg/dL AST 21 (14-36) U/L ALT 14 (0-35) U/L Alkaline Phosphatase 59 (38-126) U/L Serum Total Protein 7.5 (6.3-8.2) g/dL Albumin 4.3 (3.5-5.0) g/dL Lipase 83 (23-300) U/L Urinalys Dipstick Clnc MAIN LAB Urine Color YELLOW (YELLOW) Urine Appearance SLIGHTLY CLOUDY A (CLEAR) Urine pH 6.0 (5-6) Ur Specific [place] 1.010 (1.005-1.025) POC Urine Protein Conf NEGATIVE (Negative) Urine Ketones TRACE A (NEGATIVE) Urine Nitrite POSITIVE A (NEGATIVE) Urine Bilirubin NEGATIVE (NEGATIVE) Urine Urobilinogen 0.2 (0-1) mg/dL Urine Leukocytes LARGE A (NEGATIVE) Urine WBC (Auto) >100 A (0-5) /HPF Urine RBC (Auto) 3-5 A (0-2) /HPF U Hyaline Cast (Auto) 3-5 A (0-2) /LPF U Epithel Cells (Auto) RARE (FEW) /HPF Urine Bacteria (Auto) MANY A (NEGATIVE) /HPF Urine RBC MODERATE A (0-5) Sebas/ul Urine Mucus (Auto) SLIGHT A (NEGATIVE) /HPF Ur Culture Indicated? YES Urine Glucose NEGATIVE (NEGATIVE) mg/dL Influenza Type A Ag NEGATIVE (NEGATIVE) Influenza Type B Ag NEGATIVE (NEGATIVE) RSV (PCR) NEGATIVE (Negative) SARS-CoV-2 (PCR) NEGATIVE (NEGATIVE) 12/07/21 Range/Units 11:10 WBC 9.8 (4.0-10.5) x10^3/uL RBC 3.97 L (4.1-5.4) x10^6/uL Hgb 12.7 (12.0-16.0) g/dL Hct 38.8 (35-47) % MCV 97.7 (78-100) fL MCH 32.0 (26-32) pg MCHC 32.7 (32-36) g/dL RDW 12.5 (11.5-14.0) % Plt Count 270 (150-450) x10^3/uL MPV 10.1 (7.5-11.0) fL Gran % 73.4 H (36.0-66.0) % Immature Gran % (Auto) 0.6 H (0.00-0.4) % Nucleat RBC Rel Count 0.0 (0.00-0.1) % Eos # (Auto) 0.23 (0-0.5) x10^3/uL Immature Gran # (Auto) 0.06 H (0.00-0.03) x10^3u/L Absolute Lymphs (auto) 1.37 (1.0-4.6) x10^3/uL Absolute Monos (auto) 0.89 (0.0-1.3) x10^3/uL Absolute Nucleated RBC 0.00 (0.00-0.01) x10^3u/L Lymphocytes % 14.0 L (24.0-44.0) % Monocytes % 9.1 (0.0-12.0) % Eosinophils % 2.4 (0.00-5.0) % Basophils % 0.5 (0.0-0.4) % Absolute Granulocytes 7.17 H (1.4-6.9) x10^3/uL Basophils # 0.05 (0-0.4) x10^3/uL Sodium (137-145) mmol/L Potassium (3.5-5.1) mmol/L Chloride (98-107) mmol/L Carbon Dioxide (22-30) mmol/L Anion Gap (5-15) MEQ/L BUN (7-17) mg/dL Creatinine (0.52-1.04) mg/dL Estimated GFR ML/MIN Glucose (74-106) mg/dL Calcium (8.4-10.2) mg/dL Total Bilirubin (0.2-1.3) mg/dL AST (14-36) U/L ALT (0-35) U/L Alkaline Phosphatase (38-126) U/L Serum Total Protein (6.3-8.2) g/dL Albumin (3.5-5.0) g/dL Lipase (23-300) U/L Urinalys Dipstick Clnc Urine Color (YELLOW) Urine Appearance (CLEAR) Urine pH (5-6) Ur Specific [place] (1.005-1.025) POC Urine Protein Conf (Negative) Urine Ketones (NEGATIVE) Urine Nitrite (NEGATIVE) Urine Bilirubin (NEGATIVE) Urine Urobilinogen (0-1) mg/dL Urine Leukocytes (NEGATIVE) Urine WBC (Auto) (0-5) /HPF Urine RBC (Auto) (0-2) /HPF U Hyaline Cast (Auto) (0-2) /LPF U Epithel Cells (Auto) (FEW) /HPF Urine Bacteria (Auto) (NEGATIVE) /HPF Urine RBC (0-5) Sebas/ul Urine Mucus (Auto) (NEGATIVE) /HPF Ur Culture Indicated? Urine Glucose (NEGATIVE) mg/dL Influenza Type A Ag (NEGATIVE) Influenza Type B Ag (NEGATIVE) RSV (PCR) (Negative) SARS-CoV-2 (PCR) (NEGATIVE) - Progress Progress: improved, re-examined Progress Note: 12/07/21 14:00 She is given fluids, feeling much better on reevaluation. Does not want any pain medication but Tylenol which she is given. Has normal white count, grossly unremarkable chemistries except for some element of dehydration. Does have acute UTI and CT findings consistent with acute sigmoid diverticulitis without perforation or abscess. Started on Levaquin and Flagyl and will continue with hydration. Discussed with Dr. Espino who is covering for Dr. Read, reviewed hi story, work-up and patient is excepted for admission. Plan discussed with patient and family who understand and agree with it. Discussed with .: Tayo Will see patient in: hospital (observation) Counseled pt/family regarding: lab results, diagnosis, rad results - Departure Departure Disposition: Observation Clinical Impression: Sigmoid diverticulitis, Acute UTI Condition: Stable Critical Care Time: No Referrals: SAY RENTERIA [Primary Care Provider] - Follow up/PCP as directed
[2021-12-07] MEDS ORDERED: DUONEB 0.5-3 MG/3 ml Neb IH PRN (14:19)
[2021-12-07] MEDS ORDERED: TYLENOL 325 MG PO PRN (14:19)
[2021-12-07] MEDS: MORPHINE SULFATE 2 MG INJ IV PRN ×2 (17:12→21:10)
[2021-12-07] MEDS: FLAGYL 500 MG IVPB 500 MG/100 ML BAG IV SCH (17:25)
[2021-12-07] MEDS ORDERED: PROTONIX 40 MG IV IV ONE (19:23)
[2021-12-07] MEDS ORDERED: Pepcid 20 MG PO PRN (19:23)
[2021-12-07] MEDS ORDERED: NON-FORMULARY ITEM (Midodrine Hcl [Midodrine Hcl] 10 MG Tablet) PO SCH (22:00)
[2021-12-07] MEDS ORDERED: NON-FORMULARY ITEM (Topiramate 25 Mg*** [Topamax 25 Mg***] 25 MG Capsule) PO SCH (22:00)
[2021-12-07] MEDS: Sodium Chloride 0.9% 1000 ML 1,000 ML IV SCH (22:38)
[2021-12-08] MEDS: Zofran 4 MG/2 ML VIAL IV PRN (03:04)
[2021-12-08] MEDS: MORPHINE SULFATE 2 MG INJ IV PRN (03:04)
[2021-12-08] MEDS: FLAGYL 500 MG IVPB 500 MG/100 ML BAG IV SCH ×5 (03:13→23:50)
[2021-12-08 06:14] LABS: Basophil (Absolute #) 0.03 x10^3/uL (0-0.4); Eosinophil % 3.9 % (0.00-5.0); Eosinophil (Absolute #) 0.28 x10^3/uL (0-0.5); Hematocrit 35.6 % (35-47); Hemoglobin 11.9 g/dL (12.0-16.0); Lymphocyte (Absolute #) 1.17 x10^3/uL (1.0-4.6); Lymphocytes % 16.3 % (24.0-44.0); Mean Cell Volume 94.2 fL (78-100); Mean Corpuscular Hemoglobin 31.5 pg (26-32); Mean Corpuscular Hgb Concent. 33.4 g/dL (32-36); Mean Platelet Volume 10.7 fL (7.5-11.0); Monocyte (Absolute #) 0.66 x10^3/uL (0.0-1.3); Monocytes % 9.2 % (0.0-12.0); Neutrophil % 69.6 % (36.0-66.0); Platelet Count 269 x10^3/uL (150-450); Red Blood Count 3.78 x10^6/uL (4.1-5.4); Red Cell Distribution Width 12.7 % (11.5-14.0); White Blood Count 7.2 x10^3/uL (4.0-10.5)
[2021-12-08 06:30] LABS: ALKALINE PHOSPHATASE 62 U/L (38-126); ANION GAP 13.3 MEQ/L (5-15); BLOOD UREA NITROGEN 7 mg/dL (7-17); CHLORIDE 111 mmol/L (98-107); Calcium 8.8 mg/dL (8.4-10.2); Carbon Dioxide 21 mmol/L (22-30); Creatinine 1 0.57 mg/dL (0.52-1.04); EST GLOMERULAR FILTRATION RATE > 60.0 ML/MIN; Glucose 94 mg/dL (74-106); Potassium 3.4 mmol/L (3.5-5.1); SGOT/AST 29 U/L (14-36); SGPT/ALT 17 U/L (0-35); SODIUM 142 mmol/L (137-145); Total Protein 7.2 g/dL (6.3-8.2)
[2021-12-08] MEDS: ATARAX 25 MG PO PRN ×4 (06:41→23:50)
[2021-12-08] MEDS: PROAMATINE PO SCH ×3 (08:11→17:51)
[2021-12-08] MEDS: Protonix 40MG Tablet PO SCH (08:11)
[2021-12-08] MEDS: Sodium Chloride 0.9% 1000 ML 1,000 ML IV SCH ×2 (09:41→22:17)
[2021-12-08] MEDS: Levofloxacin 500MG/100ML D5W 500 MG/100 ML BAG IV SCH (09:42)
[2021-12-08] MEDS ORDERED: PROTONIX 40 MG IV IV SCH (10:00)
--- NOTE | 2021-12-08 10:54 | PCM.HP ---
History of Present Illness - Chief Complaint Chief Complaint: c/o watery diarrhea History of Present Illness: is a 70 year old female.with a history of irritable bowel syndrome predominant diarrhea presented in the ER having multiple episodes of loose to watery stool since yesterday with progressive worsening. Patient reports she took some stool softener yesterday and her diarrhea got really worse and has some blood-tinged which she thinks is more of because of her hemorrhoids. She is complaining of generalized cramping which comes and goes. No fever or chills reported. No nausea or vomiting. Reports having similar symptoms in the past as well. While in the ER before I interviewed patient she had to go back and forth to the bathroom 3-4 times. No history of C. difficile in the past. Timing/Duration: yesterday, intermittent, gradual onset, worse Activities at Onset: rest Quality: cramping Abdominal Pain Onset Location: generalized abdomen Pain Radiation: no radiation Severity of Pain-Max: moderate Severity of Pain-Current: mild Modifying Factors: Worsens With: defecating Associated Symptoms: diarrhea, fatigue, weakness, No nausea, No shortness of breath Previous symptoms: same symptoms as today - Review of Systems Constitutional: No Fever, No Chills Eyes: No Symptoms Ears, Nose, & Throat: No Symptoms Respiratory: No Cough, No Short Of Breath Cardiac: No Chest Pain, No Edema, No Syncope Abdominal/Gastrointestinal: Abdominal Pain, Diarrhea, No Nausea, No Vomiting, No Hematemesis, No Hematochezia, No Melena, No Dysphagia, No Appetite Changes Genitourinary Symptoms: No Dysuria Musculoskeletal: No Back Pain, No Neck Pain Skin: No Rash Neurological: No Dizziness, No Focal Weakness, No Sensory Changes Psychological: No Symptoms Endocrine: No Symptoms Hematologic/Lymphatic: No Symptoms Immunological/Allergic: No Symptoms Medications & Allergies Home Medications: Home Medication List Alosetron HCl 0.5 mg PO DAILY 02/21/21 [History Confirmed 12/07/21] Aspirin EC 81 mg [Ecotrin 81 mg] 81 mg PO DAILY 02/21/21 [History Confirmed 12/07/21] Atorvastatin Calcium 10 mg PO DAILY 02/21/21 [History Confirmed 12/07/21] Colestipol HCl [Colestid] 1 gm PO BID 02/21/21 [History Confirmed 12/07/21] Fluticasone Propionate [Flonase NASAL] 1 gm NS UD PRN 02/21/21 [History Confirmed 12/07/21] Midodrine HCl 10 mg PO TID 02/21/21 [History Confirmed 12/07/21] Hyoscyamine Sulfate 1 - 2 tab PO QID PRN 12/07/21 [History Confirmed 12/07/21] PANTOPRAZOLE 40 mg Tablet [Protonix 40MG Tablet] 40 mg PO DAILY 12/07/21 [History Confirmed 12/07/21] Allergies/Adverse Reactions: Allergies Allergy/AdvReac Type Severity Reaction Status Date / Time Penicillins Allergy Verified 02/21/21 15:15 - Past Medical History Past Medical History: Yes Neurological History: Migraines ENT History: No Pertinent History Cardiac History: Other Respiratory History: No Pertinent History Endocrine Medical History: No Pertinent History Musculoskelatal History: Arthritis GI Medical History: Irritable Bowel History: No Pertinent History Pyscho-Social History: No Pertinent History Reproductive Disorders: No Pertinent History Comment: orthostatic hypotension - Female History Are you now?: No - Past Surgical History Past Surgical History: Yes Neuro Surgical History: No Pertinent History Cardiac History: No Pertinent History Respiratory Surgery: No Pertinent History GI Surgical History: Cholecystectomy Genitourinary Surgical Hx: No Pertinent History Musculskeletal Surgical Hx: No Pertinent History Female Surgical History: Hysterectomy Other Surgical History: breast reduction and lift, foot - Social History Smoking Status: Never smoker Exposure to second hand smoke: No Alcohol: None Drug Use: none Significant Family History: no pertinent family hx - Physical Exam Vital Signs: Vital Signs - 24 hr Temp Pulse Resp BP Pulse Ox 12/08/21 08:00 98.6 F 88 18 133/60 97 12/08/21 04:00 97.1 F 72 16 148/70 95 12/08/21 00:00 97.5 F 77 16 144/66 96 12/07/21 20:21 74 16 98 12/07/21 20:00 97 F 74 16 134/62 98 12/07/21 16:02 71 14 100 12/07/21 16:00 97 F 75 19 134/62 100 12/07/21 14:58 98 12/07/21 14:29 97.3 F 81 17 137/61 99 12/07/21 14:28 97.3 F 81 18 137/61 99 12/07/21 13:25 97.3 F 78 20 147/77 98 12/07/21 11:27 97.3 F 81 18 143/74 99 General Appearance: no apparent distress, alert Neurologic Exam: alert, oriented x 3, cooperative, normal mood/affect, nml cerebellar function, nml station & gait, sensation nml, No motor deficits Eye Exam: PERRL/EOMI, eyes nml inspection Ears, Nose, Throat Exam: normal ENT inspection, TMs normal, pharynx normal, moist mucous membranes Neck Exam: normal inspection, non-tender, supple, full range of motion Respiratory Exam: normal breath sounds, lungs clear, No respiratory distress Cardiovascular Exam: regular rate/rhythm, normal heart sounds, normal peripheral pulses Gastrointestinal/Abdomen Exam: soft, normal bowel sounds, No tenderness, No mass Back Exam: normal inspection, normal range of motion, No CVA tenderness, No vertebral tenderness Extremity Exam: normal inspection, normal range of motion, pelvis stable Skin Exam: normal color, warm, dry, No rash Lymphatic Exam: No adenopathy Results - Labs Lab/Micro Results: Lab Results-Last 24 Hours 12/07/21 12/07/21 12/07/21 Range/Units 11:10 11:10 12:15 WBC 9.8 (4.0-10.5) x10^3/uL RBC 3.97 L (4.1-5.4) x10^6/uL Hgb 12.7 (12.0-16.0) g/dL Hct 38.8 (35-47) % MCV 97.7 (78-100) fL MCH 32.0 (26-32) pg MCHC 32.7 (32-36) g/dL RDW 12.5 (11.5-14.0) % Plt Count 270 (150-450) x10^3/uL MPV 10.1 (7.5-11.0) fL Gran % 73.4 H (36.0-66.0) % Immature Gran % (Auto) 0.6 H (0.00-0.4) % Nucleat RBC Rel Count 0.0 (0.00-0.1) % Eos # (Auto) 0.23 (0-0.5) x10^3/uL Immature Gran # (Auto) 0.06 H (0.00-0.03) x10^3u/L Absolute Lymphs (auto) 1.37 (1.0-4.6) x10^3/uL Absolute Monos (auto) 0.89 (0.0-1.3) x10^3/uL Absolute Nucleated RBC 0.00 (0.00-0.01) x10^3u/L Lymphocytes % 14.0 L (24.0-44.0) % Monocytes % 9.1 (0.0-12.0) % Eosinophils % 2.4 (0.00-5.0) % Basophils % 0.5 (0.0-0.4) % Absolute Granulocytes 7.17 H (1.4-6.9) x10^3/uL Basophils # 0.05 (0-0.4) x10^3/uL Sodium 140 (137-145) mmol/L Potassium 3.6 (3.5-5.1) mmol/L Chloride 107 (98-107) mmol/L Carbon Dioxide 21 L (22-30) mmol/L Anion Gap 15.8 H (5-15) MEQ/L BUN 15 (7-17) mg/dL Creatinine 0.80 (0.52-1.04) mg/dL Estimated GFR > 60.0 ML/MIN Glucose 115 H (74-106) mg/dL Calcium 9.3 (8.4-10.2) mg/dL Total Bilirubin 1.20 (0.2-1.3) mg/dL AST 21 (14-36) U/L ALT 14 (0-35) U/L Alkaline Phosphatase 59 (38-126) U/L Serum Total Protein 7.5 (6.3-8.2) g/dL Albumin 4.3 (3.5-5.0) g/dL Lipase 83 (23-300) U/L Urinalys Dipstick Clnc MAIN LAB Urine Color YELLOW (YELLOW) Urine Appearance SLIGHTLY CLOUDY A (CLEAR) Urine pH 6.0 (5-6) Ur Specific [place] 1.010 (1.005-1.025) POC Urine Protein Conf NEGATIVE (Negative) Urine Ketones TRACE A (NEGATIVE) Urine Nitrite POSITIVE A (NEGATIVE) Urine Bilirubin NEGATIVE (NEGATIVE) Urine Urobilinogen 0.2 (0-1) mg/dL Urine Leukocytes LARGE A (NEGATIVE) Urine WBC (Auto) >100 A (0-5) /HPF Urine RBC (Auto) 3-5 A (0-2) /HPF U Hyaline Cast (Auto) 3-5 A (0-2) /LPF U Epithel Cells (Auto) RARE (FEW) /HPF Urine Bacteria (Auto) MANY A (NEGATIVE) /HPF Urine RBC MODERATE A (0-5) Sebas/ul Urine Mucus (Auto) SLIGHT A (NEGATIVE) /HPF Ur Culture Indicated? YES Urine Glucose NEGATIVE (NEGATIVE) mg/dL Influenza Type A Ag (NEGATIVE) Influenza Type B Ag (NEGATIVE) RSV (PCR) (Negative) SARS-CoV-2 (PCR) (NEGATIVE) 12/07/21 12/08/21 12/08/21 Range/Units 13:10 05:29 05:29 WBC 7.2 (4.0-10.5) x10^3/uL RBC 3.78 L (4.1-5.4) x10^6/uL Hgb 11.9 L (12.0-16.0) g/dL Hct 35.6 (35-47) % MCV 94.2 (78-100) fL MCH 31.5 (26-32) pg MCHC 33.4 (32-36) g/dL RDW 12.7 (11.5-14.0) % Plt Count 269 (150-450) x10^3/uL MPV 10.7 (7.5-11.0) fL Gran % 69.6 H (36.0-66.0) % Immature Gran % (Auto) 0.6 H (0.00-0.4) % Nucleat RBC Rel Count 0.0 (0.00-0.1) % Eos # (Auto) 0.28 (0-0.5) x10^3/uL Immature Gran # (Auto) 0.04 H (0.00-0.03) x10^3u/L Absolute Lymphs (auto) 1.17 (1.0-4.6) x10^3/uL Absolute Monos (auto) 0.66 (0.0-1.3) x10^3/uL Absolute Nucleated RBC 0.00 (0.00-0.01) x10^3u/L Lymphocytes % 16.3 L (24.0-44.0) % Monocytes % 9.2 (0.0-12.0) % Eosinophils % 3.9 (0.00-5.0) % Basophils % 0.4 (0.0-0.4) % Absolute Granulocytes 5.00 (1.4-6.9) x10^3/uL Basophils # 0.03 (0-0.4) x10^3/uL Sodium 142 (137-145) mmol/L Potassium 3.4 L (3.5-5.1) mmol/L Chloride 111 H (98-107) mmol/L Carbon Dioxide 21 L (22-30) mmol/L Anion Gap 13.3 (5-15) MEQ/L BUN 7 (7-17) mg/dL Creatinine 0.57 (0.52-1.04) mg/dL Estimated GFR > 60.0 ML/MIN Glucose 94 (74-106) mg/dL Calcium 8.8 (8.4-10.2) mg/dL Total Bilirubin 0.70 (0.2-1.3) mg/dL AST 29 (14-36) U/L ALT 17 (0-35) U/L Alkaline Phosphatase 62 (38-126) U/L Serum Total Protein 7.2 (6.3-8.2) g/dL Albumin 4.0 (3.5-5.0) g/dL Lipase (23-300) U/L Urinalys Dipstick Clnc Urine Color (YELLOW) Urine Appearance (CLEAR) Urine pH (5-6) Ur Specific [place] (1.005-1.025) POC Urine Protein Conf (Negative) Urine Ketones (NEGATIVE) Urine Nitrite (NEGATIVE) Urine Bilirubin (NEGATIVE) Urine Urobilinogen (0-1) mg/dL Urine Leukocytes (NEGATIVE) Urine WBC (Auto) (0-5) /HPF Urine RBC (Auto) (0-2) /HPF U Hyaline Cast (Auto) (0-2) /LPF U Epithel Cells (Auto) (FEW) /HPF Urine Bacteria (Auto) (NEGATIVE) /HPF Urine RBC (0-5) Sebas/ul Urine Mucus (Auto) (NEGATIVE) /HPF Ur Culture Indicated? Urine Glucose (NEGATIVE) mg/dL Influenza Type A Ag NEGATIVE (NEGATIVE) Influenza Type B Ag NEGATIVE (NEGATIVE) RSV (PCR) NEGATIVE (Negative) SARS-CoV-2 (PCR) NEGATIVE (NEGATIVE) Microbiology 12/07/21 12:15 Urine Culture - Preliminary Clean Catch Midstream GRAM NEGATIVE ID AND SENSITIVITY PENDING - Radiology Impressions Radiology Exams & Impressions: Radiology Procedures Category Date Time Status ABDOMEN AND PELVIS W/0 CONTRAS [CT] Stat Exams 12/07/21 12:[address]/ABDOMEN AND PELVIS W/0 CONTRAS Indication: Lower abdomen cramping and diarrhea. Multiple contiguous axial images obtained through the abdomen and pelvis without contrast. Comparison: November 12, 2020 Lung bases again demonstrates pulmonary emphysema with minimal left base fibrosis/scarring. Heart not enlarged. Stable small hiatal hernia. Noncontrasted stomach and bowel loops remains nonobstructed. Normal appendix. Colonic radiopacities again either ingested medication, bismuth, or barium. There remains scattered descending and sigmoid diverticulosis. Sigmoid colon now demonstrates moderate wall thickening with minimal stranding favoring diverticulitis. Tiny free fluid presumed reactive but no walled off fluid collection or free air. Again small exophytic right renal cyst, hepatic/splenic ossified granulomas, cholecystectomy, and bilateral pelvic surgical clips. Remaining liver, pancreas, spleen, adrenal glands, kidneys, ureters, bladder, and aorta are unremarkable for noncontrast exam. Impression: 1. Again colonic diverticulosis with new CT findings as detailed favoring moderate sigmoid diverticulitis with tiny free fluid. 2. Again small hiatal hernia, right renal cyst, and old granulomatous disease. - Other Procedures and Tests Respiratory Therapy 12/07/21 14:33 Respiratory Therapy Assessment DAILY Assessment/Plan (1) Sigmoid diverticulitis Current Visit: Yes Status: Acute Assessment & Plan: Chief Complaint Diagnosis Acute sigmoid diverticulitis Allergies Allergy/AdvReac Type Severity Reaction Status Date / Time Penicillins Allergy Verified 02/21/21 15:15 Vital Signs (Last 24 hours) Temp Pulse Resp BP Pulse Ox 12/08/21 08:00 98.6 F 88 18 133/60 97 12/08/21 04:00 97.1 F 72 16 148/70 95 12/08/21 00:00 97.5 F 77 16 144/66 96 12/07/21 20:21 74 16 98 12/07/21 20:00 97 F 74 16 134/62 98 12/07/21 16:02 71 14 100 12/07/21 16:00 97 F 75 19 134/62 100 12/07/21 14:58 98 12/07/21 14:29 97.3 F 81 17 137/61 99 12/07/21 14:28 97.3 F 81 18 137/61 99 12/07/21 13:25 97.3 F 78 20 147/77 98 12/07/21 11:27 97.3 F 81 18 143/74 99 Home Medications Medication Instructions Recorded Confirmed Last Taken Type Hyoscyamine Sulfate 1 - 2 tab PO QID PRN 12/07/21 12/07/21 Unknown History PANTOPRAZOLE 40 mg Tablet 40 mg PO DAILY 12/07/21 12/07/21 12/06/21 History [Protonix 40MG Tablet] Current Medications Generic Name Dose Route Start Last Admin Trade Name Freq PRN Reason Stop Dose Admin Acetaminophen 650 mg 12/07/21 14:19 Acetaminophen 325 Mg Tablet PO 01/06/22 14:18 Q4H PRN PRN PAIN AND/OR FEVER Albuterol/Ipratropium 3 ml 12/07/21 14:19 Ipratropium/Albuterol Sulfate 3 Ml Ampul.Neb IH 01/06/22 14:18 Q4HPRN PRN SHORTNESS OF BREATH/WHEEZING Famotidine 20 mg 12/07/21 19:23 12/07/21 21:10 Famotidine 20 Mg Tablet PO 01/06/22 19:22 20 mg BIDPRN PRN Administration INDIGESTION Hydroxyzine HCl 25 mg 12/08/21 06:31 12/08/21 06:41 Hydroxyzine Hcl 25 Mg Tablet PO 01/07/22 06:30 25 mg QID PRN PRN Administration ANXIETY Levofloxacin/Dextrose 500 mg in 100 mls @ 100 mls/hr 12/08/21 10:00 12/08/21 09:42 Levofloxacin 500mg/100ml D5w IV 01/07/22 09:59 100 mls/hr Q24H10 SIMONA Administration Metronidazole 500 mg in 100 mls @ 200 mls/hr 12/07/21 18:00 12/08/21 08:07 Flagyl 500 Mg Ivpb IV 01/06/22 17:59 200 mls/hr Q6HT SIMONA Administration Sodium Chloride 1,000 mls @ 100 mls/hr 12/07/21 22:45 12/08/21 09:41 Sodium Chloride 0.9% 1000 Ml IV 01/06/22 22:44 100 mls/hr .Q10H SIMONA Administration Midodrine 10 mg 12/08/21 07:30 12/08/21 08:11 Midodrine Hcl 5 Mg Tablet PO 01/07/22 07:29 10 mg TIDAC SIMONA Administration Morphine Sulfate 2 mg 12/07/21 14:19 12/08/21 03:04 Morphine Sulfate 2 Mg/Ml Inj IV 12/12/21 14:18 2 mg Q4H PRN PRN Administration PAIN Ondansetron HCl 4 mg 12/07/21 14:19 12/08/21 03:04 Ondansetron Hcl 4 Mg/2 Ml Vial IV 01/06/22 14:18 4 mg Q6H PRN PRN Administration NAUSEA/VOMITING Pantoprazole Sodium 40 mg 12/08/21 10:00 12/08/21 08:11 Protonix (Pantoprazole) 40 Mg Tablet PO 01/07/22 09:59 40 mg DAILY SIMONA Administration Simethicone 80 mg 12/08/21 06:54 Simethicone 80 Mg Tab.Chew PO 01/07/22 06:53 QID PRN PRN GAS Discontinued Medications Generic Name Dose Route Start Last Admin Trade Name Freq PRN Reason Stop Dose Admin Acetaminophen 975 mg 12/07/21 12:52 12/07/21 12:59 Acetaminophen 325 Mg Tablet PO 12/07/21 12:53 975 mg STAT STA Administration Acetaminophen Confirm 12/07/21 12:58 Acetaminophen 325 Mg Tablet Administered 12/07/21 12:59 Dose 975 mg .ROUTE .STK-MED ONE Sodium Chloride 1,000 mls @ 999 mls/hr 12/07/21 10:58 12/07/21 12:18 Sodium Chloride 0.9% 1000 Ml IV 12/07/21 11:58 Infused .Q1H1M STA Infusion Sodium Chloride Confirm 12/07/21 11:00 Sodium Chloride 0.9% 1000 Ml Administered 12/07/21 11:01 Dose 1,000 mls @ ud .ROUTE .STK-MED ONE Sodium Chloride 1,000 mls @ 100 mls/hr 12/07/21 12:15 12/07/21 12:20 Sodium Chloride 0.9% 1000 Ml IV 01/06/22 12:14 100 mls/hr .Q10H SIMONA Administration Levofloxacin/Dextrose 750 mg in 150 mls @ 100 mls/hr 12/07/21 12:58 12/07/21 13:05 Levofloxacin 750mg/150ml D5w IV 12/07/21 14:27 100 ml/hr STAT STA 100 mls/hr Administration Metronidazole 500 mg in 100 mls @ 200 mls/hr 12/07/21 12:58 12/07/21 14:37 Flagyl 500 Mg Ivpb IV 12/07/21 13:27 Not Given STAT STA Levofloxacin/Dextrose Confirm 12/07/21 13:03 Levofloxacin 750mg/150ml D5w Administered 12/07/21 13:04 Dose 750 mg in 150 mls @ ud IV .STK-MED ONE Sodium Chloride Confirm 12/07/21 12:18 Sodium Chloride 0.9% 1000 Ml Administered 12/07/21 12:19 Dose 1,000 mls @ ud .ROUTE .STK-MED ONE Sodium Chloride Confirm 12/07/21 22:03 Sodium Chloride 0.9% 1000 Ml Administered 12/07/21 22:04 Dose 1,000 mls @ ud .ROUTE .STK-MED ONE Non-Formulary Medication 25 mg 12/07/21 22:00 Topiramate 25 Mg [Topamax 25 Mg] PO 01/06/22 21:59 BID SIMONA Ondansetron HCl 4 mg 12/07/21 10:58 12/07/21 11:02 Ondansetron Hcl 4 Mg/2 Ml Vial IV 12/07/21 10:59 4 mg STAT ONE Administration Ondansetron HCl Confirm 12/07/21 11:00 Ondansetron Hcl 4 Mg/2 Ml Vial Administered 12/07/21 11:01 Dose 4 mg .ROUTE .STK-MED ONE Pantoprazole Sodium 40 mg 12/08/21 10:00 Pantoprazole 40 Mg Vial IV 01/07/22 09:59 Q24H10 SIMONA Pantoprazole Sodium 40 mg 12/07/21 19:23 12/07/21 19:37 Pantoprazole 40 Mg Vial IV 12/07/21 19:24 40 mg ONCE ONE Administration Intake & Output (Last 24 hours) 12/05/21 12/06/21 12/07/21 12/08/21 11:59 11:59 11:59 11:59 Intake Total 1464 Balance 1464 Weight 60.4 kg 60.2 kg Microbiology Results (Last 24 hours) 12/07/21 12:15 Clean Catch Midstream Urine Culture - Preliminary GRAM NEGATIVE ID AND SENSITIVITY PENDING Laboratory Results (Last 24 hours) 12/08/21 12/08/21 12/07/21 05:29 05:29 13:10 WBC 7.2 RBC 3.78 L Hgb 11.9 L Hct 35.6 MCV 94.2 MCH 31.5 MCHC 33.4 RDW 12.7 Plt Count 269 MPV 10.7 Gran % 69.6 H Immature Gran % (Auto) 0.6 H Nucleat RBC Rel Count 0.0 Eos # (Auto) 0.28 Immature Gran # (Auto) 0.04 H Absolute Lymphs (auto) 1.17 Absolute Monos (auto) 0.66 Absolute Nucleated RBC 0.00 Lymphocytes % 16.3 L Monocytes % 9.2 Eosinophils % 3.9 Basophils % 0.4 Absolute Granulocytes 5.00 Basophils # 0.03 Sodium 142 Potassium 3.4 L Chloride 111 H Carbon Dioxide 21 L Anion Gap 13.3 BUN 7 Creatinine 0.57 Estimated GFR > 60.0 Glucose 94 Calcium 8.8 Total Bilirubin 0.70 AST 29 ALT 17 Alkaline Phosphatase 62 Serum Total Protein 7.2 Albumin 4.0 Lipase Urinalys Dipstick Clnc Urine Color Urine Appearance Urine pH Ur Specific [place] POC Urine Protein Conf Urine Ketones Urine Nitrite Urine Bilirubin Urine Urobilinogen Urine Leukocytes Urine WBC (Auto) Urine RBC (Auto) U Hyaline Cast (Auto) U Epithel Cells (Auto) Urine Bacteria (Auto) Urine RBC Urine Mucus (Auto) Ur Culture Indicated? Urine Glucose Influenza Type A Ag NEGATIVE Influenza Type B Ag NEGATIVE RSV (PCR) NEGATIVE SARS-CoV-2 (PCR) NEGATIVE 12/07/21 12/07/21 12/07/21 12:15 11:10 11:10 WBC 9.8 RBC 3.97 L Hgb 12.7 Hct 38.8 MCV 97.7 MCH 32.0 MCHC 32.7 RDW 12.5 Plt Count 270 MPV 10.1 Gran % 73.4 H Immature Gran % (Auto) 0.6 H Nucleat RBC Rel Count 0.0 Eos # (Auto) 0.23 Immature Gran # (Auto) 0.06 H Absolute Lymphs (auto) 1.37 Absolute Monos (auto) 0.89 Absolute Nucleated RBC 0.00 Lymphocytes % 14.0 L Monocytes % 9.1 Eosinophils % 2.4 Basophils % 0.5 Absolute Granulocytes 7.17 H Basophils # 0.05 Sodium 140 Potassium 3.6 Chloride 107 Carbon Dioxide 21 L Anion Gap 15.8 H BUN 15 Creatinine 0.80 Estimated GFR > 60.0 Glucose 115 H Calcium 9.3 Total Bilirubin 1.20 AST 21 ALT 14 Alkaline Phosphatase 59 Serum Total Protein 7.5 Albumin 4.3 Lipase 83 Urinalys Dipstick Clnc MAIN LAB Urine Color YELLOW Urine Appearance SLIGHTLY CLOUDY A Urine pH 6.0 Ur Specific [place] 1.010 POC Urine Protein Conf NEGATIVE Urine Ketones TRACE A Urine Nitrite POSITIVE A Urine Bilirubin NEGATIVE Urine Urobilinogen 0.2 Urine Leukocytes LARGE A Urine WBC (Auto) >100 A Urine RBC (Auto) 3-5 A U Hyaline Cast (Auto) 3-5 A U Epithel Cells (Auto) RARE Urine Bacteria (Auto) MANY A Urine RBC MODERATE A Urine Mucus (Auto) SLIGHT A Ur Culture Indicated? YES Urine Glucose NEGATIVE Influenza Type A Ag Influenza Type B Ag RSV (PCR) SARS-CoV-2 (PCR) Orders (Last 24 hours) Category Date Time Status Bedrest ROUTINE Activity 12/07/21 14:19 Active Up With Assistance ROUTINE Activity 12/07/21 14:19 Active Code Status Order ROUTINE Care 12/07/21 14:19 Active Fall Protocol Q1H Care 12/07/21 14:19 Active IV Care Q6H Care 12/07/21 14:[address] in Observation ROUTINE Care 12/07/21 14:19 Active Tre [place] ROUTINE Care 12/07/21 14:19 Active Weight,Daily 0600 Care 12/07/21 14:19 Active Clear Liquid Diet 12/07/21 Dinner Active ABDOMEN AND PELVIS W/0 CONTRAS [CT] Stat Exams 12/07/21 12:13 Completed CBC W DIFF AM.LAB Lab 12/08/21 05:29 Completed CBC W DIFF Stat Lab 12/07/21 11:10 Completed CMP AM.LAB Lab 12/08/21 05:29 Completed CMP Stat Lab 12/07/21 11:10 Completed COVID/FLU/RSV Panel Stat Lab 12/07/21 13:10 Completed CULTURE,URINE Stat Lab 12/07/21 12:15 Results LIPASE Stat Lab 12/07/21 11:10 Completed UA W/RFX CULTURE Stat Lab 12/07/21 12:15 Completed Acetaminophen 325 mg [Tylenol 325 mg] Med 12/07/21 14:19 Active 650 mg PO Q4H PRN PRN Acetaminophen 325 mg [Tylenol 325 mg] Med 12/07/21 12:58 Discontinued 975 mg .ROUTE .STK-MED ONE Acetaminophen 325 mg [Tylenol 325 mg] Med 12/07/21 12:52 Discontinued 975 mg PO STAT STA Albuterol/Ipratropium 3ml Neb* [DUONEB 0.5-3 MG/3 ml Med 12/07/21 14:19 Active Neb] 3 ml IH Q4HPRN PRN Famotidine 20 mg [Pepcid 20 MG] Med 12/07/21 19:23 Active 20 mg PO BIDPRN PRN Hydroxyzine HCl 25 mg [Atarax 25 mg] Med 12/08/21 06:31 Active 25 mg PO QID PRN PRN Levofloxacin [Levofloxacin 500MG/100ML D5W] Med 12/08/21 10:00 Active 500 mg in 100 ml IV Q24H10 Levofloxacin [Levofloxacin 750Mg/150Ml D5w] Med 12/07/21 12:58 Discontinued 750 mg in 150 ml IV STAT Levofloxacin [Levofloxacin 750Mg/150Ml D5w] Med 12/07/21 13:03 Discontinued 750 mg in 150 ml IV UD Metronidazole 500 mg Premix [Flagyl 500 mg Ivpb] Med 12/07/21 18:00 Active 500 mg in 100 ml IV Q6HT Metronidazole 500 mg Premix [Flagyl 500 mg Ivpb] Med 12/07/21 12:58 Discontinued 500 mg in 100 ml IV STAT Midodrine HCl [Proamatine] Med 12/08/21 07:30 Active 10 mg PO TIDAC Morphine Sulfate 2 mg Inj Med 12/07/21 14:19 Active 2 mg IV Q4H PRN PRN NaCl 0.9% 1000 ml [Sodium Chloride 0.9% 1000 ML] 1,000 Med 12/07/21 11:00 Discontinued ml .ROUTE UD NaCl 0.9% 1000 ml [Sodium Chloride 0.9% 1000 ML] 1,000 Med 12/07/21 12:18 Discontinued ml .ROUTE UD NaCl 0.9% 1000 ml [Sodium Chloride 0.9% 1000 ML] 1,000 Med 12/07/21 22:03 Discontinued ml .ROUTE UD NaCl 0.9% 1000 ml [Sodium Chloride 0.9% 1000 ML] 1,000 Med 12/07/21 12:15 Discontinued ml IV 100 mls/hr NaCl 0.9% 1000 ml [Sodium Chloride 0.9% 1000 ML] 1,000 Med 12/07/21 22:45 Active ml IV 100 mls/hr NaCl 0.9% 1000 ml [Sodium Chloride 0.9% 1000 ML] 1,000 Med 12/07/21 10:58 Discontinued ml IV 999 mls/hr Ondansetron HCl 4 mg/2 ml [Zofran 4 MG/2 ML VIAL] Med 12/07/21 11:00 Discontinued 4 mg .ROUTE .STK-MED ONE Ondansetron HCl 4 mg/2 ml [Zofran 4 MG/2 ML VIAL] Med 12/07/21 14:19 Active 4 mg IV Q6H PRN PRN Ondansetron HCl 4 mg/2 ml [Zofran 4 MG/2 ML VIAL] Med 12/07/21 10:58 Discontinued 4 mg IV STAT ONE PANTOPRAZOLE 40 mg Tablet [Protonix 40MG Tablet] Med 12/08/21 10:00 Active 40 mg PO DAILY Pantoprazole 40 mg [Protonix 40 mg IV] Med 12/07/21 19:23 Discontinued 40 mg IV ONCE ONE Pantoprazole 40 mg [Protonix 40 mg IV] Med 12/08/21 10:00 Discontinued 40 mg IV Q24H10 Simethicone 80 mg [Mylicon 80MG] Med 12/08/21 06:54 Active 80 mg PO QID PRN PRN Topiramate 25 mg [Topamax 25 MG] Med 12/07/21 22:00 Discontinued 25 mg PO BID Pulse Oximetry .spot check RT 12/07/21 14:33 Active Respiratory Therapy Assessment DAILY RT 12/07/21 14:33 Active Code(s): K57.32 - DVTRCLI OF LG INT W/O PERFORATION OR ABSCESS W/O BLEEDING (2) Acute UTI Current Visit: Yes Status: Acute Assessment & Plan: Last Vital Signs Temp 98.6 F 12/08/21 08:00 Pulse 88 12/08/21 08:00 Resp 18 12/08/21 08:00 BP 133/60 12/08/21 08:00 Pulse Ox 97 12/08/21 08:00 Allergies Penicillins Allergy (Verified 02/21/21 15:15) Active Medications Acetaminophen (Acetaminophen 325 Mg Tablet) 650 mg PO Q4H PRN PRN PRN Reason: PAIN AND/OR FEVER Stop: 01/06/22 14:18 Albuterol/Ipratropium (Ipratropium/Albuterol Sulfate 3 Ml Ampul.Neb) 3 ml IH Q4HPRN PRN PRN Reason: SHORTNESS OF BREATH/WHEEZING Stop: 01/06/22 14:18 Famotidine (Famotidine 20 Mg Tablet) 20 mg PO BIDPRN PRN PRN Reason: INDIGESTION Stop: 01/06/22 19:22 Last Admin: 12/07/21 21:10 Dose: 20 mg Hydroxyzine HCl (Hydroxyzine Hcl 25 Mg Tablet) 25 mg PO QID PRN PRN PRN Reason: ANXIETY Stop: 01/07/22 06:30 Last Admin: 12/08/21 06:41 Dose: 25 mg Levofloxacin/Dextrose (Levofloxacin 500mg/100ml D5w) 500 mg in 100 mls @ 100 mls/hr IV Q24H10 SIMONA Stop: 01/07/22 09:59 Last Admin: 12/08/21 09:42 Dose: 100 mls/hr Metronidazole (Flagyl 500 Mg Ivpb) 500 mg in 100 mls @ 200 mls/hr IV Q6HT SIMONA Stop: 01/06/22 17:59 Last Admin: 12/08/21 08:07 Dose: 200 mls/hr Sodium Chloride (Sodium Chloride 0.9% 1000 Ml) 1,000 mls @ 100 mls/hr IV .Q10H SIMONA Stop: 01/06/22 22:44 Last Admin: 12/08/21 09:41 Dose: 100 mls/hr Midodrine (Midodrine Hcl 5 Mg Tablet) 10 mg PO TIDAC SIMONA Stop: 01/07/22 07:29 Last Admin: 12/08/21 08:11 Dose: 10 mg Morphine Sulfate (Morphine Sulfate 2 Mg/Ml Inj) 2 mg IV Q4H PRN PRN PRN Reason: PAIN Stop: 12/12/21 14:18 Last Admin: 12/08/21 03:04 Dose: 2 mg Ondansetron HCl (Ondansetron Hcl 4 Mg/2 Ml Vial) 4 mg IV Q6H PRN PRN PRN Reason: NAUSEA/VOMITING Stop: 01/06/22 14:18 Last Admin: 12/08/21 03:04 Dose: 4 mg Pantoprazole Sodium (Protonix (Pantoprazole) 40 Mg Tablet) 40 mg PO DAILY FORMERLY [facility], [facility]–1983 Stop: 01/07/22 09:59 Last Admin: 12/08/21 08:11 Dose: 40 mg Simethicone (Simethicone 80 Mg Tab.Chew) 80 mg PO QID PRN PRN PRN Reason: GAS Stop: 01/07/22 06:53 Intake & Output 12/07/21 12/08/21 11:59 11:59 Intake Total 1464 Balance 1464 Weight 60.4 kg 60.2 kg Orders 12/07/21 19:23 Famotidine 20 mg [Pepcid 20 MG] 20 mg PO BIDPRN PRN 12/07/21 22:45 NaCl 0.9% 1000 ml [Sodium Chloride 0.9% 1000 ML] 1,000 ml IV 100 mls/hr 12/08/21 06:31 Hydroxyzine HCl 25 mg [Atarax 25 mg] 25 mg PO QID PRN PRN 12/08/21 06:54 Simethicone 80 mg [Mylicon 80MG] 80 mg PO QID PRN PRN Lab Tests 12/07/21 12/07/21 12/07/21 11:10 11:10 12:15 WBC 9.8 RBC 3.97 L Hgb 12.7 Hct 38.8 MCV 97.7 MCH 32.0 MCHC 32.7 RDW 12.5 Plt Count 270 MPV 10.1 Gran % 73.4 H Immature Gran % (Auto) 0.6 H Nucleat RBC Rel Count 0.0 Eos # (Auto) 0.23 Immature Gran # (Auto) 0.06 H Absolute Lymphs (auto) 1.37 Absolute Monos (auto) 0.89 Absolute Nucleated RBC 0.00 Lymphocytes % 14.0 L Monocytes % 9.1 Eosinophils % 2.4 Basophils % 0.5 Absolute Granulocytes 7.17 H Basophils # 0.05 Sodium 140 Potassium 3.6 Chloride 107 Carbon Dioxide 21 L Anion Gap 15.8 H BUN 15 Creatinine 0.80 Estimated GFR > 60.0 Glucose 115 H Calcium 9.3 Total Bilirubin 1.20 AST 21 ALT 14 Alkaline Phosphatase 59 Serum Total Protein 7.5 Albumin 4.3 Lipase 83 Urinalys Dipstick Clnc MAIN LAB Urine Color YELLOW Urine Appearance SLIGHTLY CLOUDY A Urine pH 6.0 Ur Specific [place] 1.010 POC Urine Protein Conf NEGATIVE Urine Ketones TRACE A Urine Nitrite POSITIVE A Urine Bilirubin NEGATIVE Urine Urobilinogen 0.2 Urine Leukocytes LARGE A Urine WBC (Auto) >100 A Urine RBC (Auto) 3-5 A U Hyaline Cast (Auto) 3-5 A U Epithel Cells (Auto) RARE Urine Bacteria (Auto) MANY A Urine RBC MODERATE A Urine Mucus (Auto) SLIGHT A Ur Culture Indicated? YES Urine Glucose NEGATIVE Influenza Type A Ag Influenza Type B Ag RSV (PCR) SARS-CoV-2 (PCR) 12/07/21 12/08/21 12/08/21 13:10 05:29 05:29 WBC 7.2 RBC 3.78 L Hgb 11.9 L Hct 35.6 MCV 94.2 MCH 31.5 MCHC 33.4 RDW 12.7 Plt Count 269 MPV 10.7 Gran % 69.6 H Immature Gran % (Auto) 0.6 H Nucleat RBC Rel Count 0.0 Eos # (Auto) 0.28 Immature Gran # (Auto) 0.04 H Absolute Lymphs (auto) 1.17 Absolute Monos (auto) 0.66 Absolute Nucleated RBC 0.00 Lymphocytes % 16.3 L Monocytes % 9.2 Eosinophils % 3.9 Basophils % 0.4 Absolute Granulocytes 5.00 Basophils # 0.03 Sodium 142 Potassium 3.4 L Chloride 111 H Carbon Dioxide 21 L Anion Gap 13.3 BUN 7 Creatinine 0.57 Estimated GFR > 60.0 Glucose 94 Calcium 8.8 Total Bilirubin 0.70 AST 29 ALT 17 Alkaline Phosphatase 62 Serum Total Protein 7.2 Albumin 4.0 Lipase Urinalys Dipstick Clnc Urine Color Urine Appearance Urine pH Ur Specific [place] POC Urine Protein Conf Urine Ketones Urine Nitrite Urine Bilirubin Urine Urobilinogen Urine Leukocytes Urine WBC (Auto) Urine RBC (Auto) U Hyaline Cast (Auto) U Epithel Cells (Auto) Urine Bacteria (Auto) Urine RBC Urine Mucus (Auto) Ur Culture Indicated? Urine Glucose Influenza Type A Ag NEGATIVE Influenza Type B Ag NEGATIVE RSV (PCR) NEGATIVE SARS-CoV-2 (PCR) NEGATIVE Microbiology 12/07/21 12:15 Clean Catch Midstream Urine Culture - Preliminary GRAM NEGATIVE ID AND SENSITIVITY PENDING Code(s): N39.0 - URINARY TRACT INFECTION, SITE NOT SPECIFIED
[2021-12-08] MEDS: Mylicon 80MG PO PRN ×3 (13:15→23:50)
[2021-12-09] MEDS: FLAGYL 500 MG IVPB 500 MG/100 ML BAG IV SCH ×3 (06:02→17:46)
[2021-12-09] MEDS: Mylicon 80MG PO PRN (08:14)
[2021-12-09] MEDS: PROAMATINE PO SCH ×3 (08:16→17:46)
[2021-12-09] MEDS: ATARAX 25 MG PO PRN ×2 (08:16→14:50)
[2021-12-09] MEDS: Levofloxacin 500MG/100ML D5W 500 MG/100 ML BAG IV SCH (08:17)
[2021-12-09] MEDS: Protonix 40MG Tablet PO SCH (08:17)
[2021-12-09] MEDS: Sodium Chloride 0.9% 1000 ML 1,000 ML IV SCH ×2 (10:34→20:50)
[2021-12-09] MEDS ORDERED: ANASPAZ 0.125 MG SL PRN ×2 (11:51→14:04)
--- NOTE | 2021-12-09 13:08 | PCM.NOTE ---
Date and Time: 12/09/21 1306 Subjective Assessment: still c/o abdominal pain and cramping - Review of Systems Constitutional: No Fever, No Chills Eyes: No Symptoms Ears, Nose, & Throat: No Symptoms Respiratory: No Cough, No Short Of Breath Cardiac: No Chest Pain, No Edema, No Syncope Abdominal/Gastrointestinal: Abdominal Pain, Other (cramping), No Nausea, No Vomiting, No Diarrhea Genitourinary Symptoms: No Dysuria Musculoskeletal: No Back Pain, No Neck Pain Skin: No Rash Neurological: No Dizziness, No Focal Weakness, No Sensory Changes Psychological: No Symptoms Endocrine: No Symptoms Hematologic/Lymphatic: No Symptoms Immunological/Allergic: No Symptoms Objective Exam General Appearance: no apparent distress, alert Neurologic Exam: alert, oriented x 3, cooperative, normal mood/affect, nml cerebellar function, sensation nml, No motor deficits Skin Exam: normal color, warm, dry Eye Exam: PERRL, EOMI, eyes nml inspection Ears, Nose, Throat Exam: normal ENT inspection, pharynx normal, moist mucous membranes Neck Exam: normal inspection, non-tender, supple, full range of motion Respiratory Exam: normal breath sounds, lungs clear, No respiratory distress Cardiovascular Exam: regular rate/rhythm, normal heart sounds Gastrointestinal/Abdomen Exam: soft, normal bowel sounds, tenderness, No mass Extremity Exam: normal inspection, normal range of motion Back Exam: normal inspection, normal range of motion, No CVA tenderness, No vertebral tenderness Pelvic Exam: deferred Rectal Exam: deferred OBJECTIVE DATA Vital Signs: Vital Signs - 24 hr Temp Pulse Resp BP Pulse Ox 12/09/21 12:00 98.2 F 71 130/69 96 12/09/21 08:00 97.7 F 95 H 18 143/65 97 12/09/21 04:00 97.8 F 81 16 114/55 97 12/08/21 23:52 97.8 F 76 16 125/58 96 12/08/21 20:00 97.7 F 74 16 128/59 97 12/08/21 16:00 97.7 F 82 18 124/57 96 12/08/21 13:50 95 H 18 97 Pain Assessment - Last Documented Pain Intensity 7 Pain Scale Used 0-10 Pain Scale Intake and Output: Intake & Output 12/07/21 12/08/21 12/09/21 12/10/21 11:59 11:59 11:59 11:59 Intake Total 1464 3482 Balance 1464 3482 Weight 60.4 kg 60.2 kg 60.4 kg Radiology Exams: Radiology Procedures Category Date Time Status ABDOMEN AND PELVIS W/0 CONTRAS [CT] Stat Exams 12/07/21 12:13 Completed Assessment/Plan (1) Sigmoid diverticulitis Current Visit: Yes Status: Acute Assessment & Plan: Chief Complaint Diagnosis c/o watery diarrhea Allergies Allergy/AdvReac Type Severity Reaction Status Date / Time Penicillins Allergy Verified 02/21/21 15:15 Vital Signs (Last 24 hours) Temp Pulse Resp BP Pulse Ox 12/09/21 12:00 98.2 F 71 130/69 96 12/09/21 08:00 97.7 F 95 H 18 143/65 97 12/09/21 04:00 97.8 F 81 16 114/55 97 12/08/21 23:52 97.8 F 76 16 125/58 96 12/08/21 20:00 97.7 F 74 16 128/59 97 12/08/21 16:00 97.7 F 82 18 124/57 96 12/08/21 13:50 95 H 18 97 Home Medications Medication Instructions Recorded Confirmed Last Taken Type Hyoscyamine Sulfate 1 - 2 tab PO QID PRN 12/07/21 12/07/21 Unknown History PANTOPRAZOLE 40 mg Tablet 40 mg PO DAILY 12/07/21 12/07/21 12/06/21 History [Protonix 40MG Tablet] Current Medications Generic Name Dose Route Start Last Admin Trade Name Freq PRN Reason Stop Dose Admin Acetaminophen 650 mg 12/07/21 14:19 12/09/21 08:15 Acetaminophen 325 Mg Tablet PO 01/06/22 14:18 650 mg Q4H PRN PRN Administration PAIN AND/OR FEVER Famotidine 20 mg 12/07/21 19:23 12/07/21 21:10 Famotidine 20 Mg Tablet PO 01/06/22 19:22 20 mg BIDPRN PRN Administration INDIGESTION Hydroxyzine HCl 25 mg 12/08/21 06:31 12/09/21 08:16 Hydroxyzine Hcl 25 Mg Tablet PO 01/07/22 06:30 25 mg QID PRN PRN Administration ANXIETY Hyoscyamine 0.125 mg 12/09/21 11:51 Hyoscyamine Sulfate 0.125 Mg Tab.Rapdis SL 01/08/22 11:59 QID PRN PRN STOMACH UPSET Levofloxacin/Dextrose 500 mg in 100 mls @ 100 mls/hr 12/08/21 10:00 12/09/21 08:17 Levofloxacin 500mg/100ml D5w IV 01/07/22 09:59 100 mls/hr Q24H10 SIMONA Administration Metronidazole 500 mg in 100 mls @ 200 mls/hr 12/07/21 18:00 12/09/21 11:12 Flagyl 500 Mg Ivpb IV 01/06/22 17:59 200 mls/hr Q6HT SIMONA Administration Sodium Chloride 1,000 mls @ 100 mls/hr 12/07/21 22:45 12/09/21 10:34 Sodium Chloride 0.9% 1000 Ml IV 01/06/22 22:44 100 mls/hr .Q10H SIMONA Administration Midodrine 10 mg 12/08/21 07:30 12/09/21 11:07 Midodrine Hcl 5 Mg Tablet PO 01/07/22 07:29 10 mg TIDAC SIMONA Administration Morphine Sulfate 2 mg 12/07/21 14:19 12/08/21 03:04 Morphine Sulfate 2 Mg/Ml Inj IV 12/12/21 14:18 2 mg Q4H PRN PRN Administration PAIN Ondansetron HCl 4 mg 12/07/21 14:19 12/08/21 03:04 Ondansetron Hcl 4 Mg/2 Ml Vial IV 01/06/22 14:18 4 mg Q6H PRN PRN Administration NAUSEA/VOMITING Pantoprazole Sodium 40 mg 12/08/21 10:00 12/09/21 08:17 Protonix (Pantoprazole) 40 Mg Tablet PO 01/07/22 09:59 40 mg DAILY SIMONA Administration Simethicone 80 mg 12/08/21 06:54 12/09/21 08:14 Simethicone 80 Mg Tab.Chew PO 01/07/22 06:53 80 mg QID PRN PRN Administration GAS Discontinued Medications Generic Name Dose Route Start Last Admin Trade Name Freq PRN Reason Stop Dose Admin Acetaminophen 975 mg 12/07/21 12:52 12/07/21 12:59 Acetaminophen 325 Mg Tablet PO 12/07/21 12:53 975 mg STAT STA Administration Acetaminophen Confirm 12/07/21 12:58 Acetaminophen 325 Mg Tablet Administered 12/07/21 12:59 Dose 975 mg .ROUTE .STK-MED ONE Albuterol/Ipratropium 3 ml 12/07/21 14:19 Ipratropium/Albuterol Sulfate 3 Ml Ampul.Neb IH 01/06/22 14:18 Q4HPRN PRN SHORTNESS OF BREATH/WHEEZING Sodium Chloride 1,000 mls @ 999 mls/hr 12/07/21 10:58 12/07/21 12:18 Sodium Chloride 0.9% 1000 Ml IV 12/07/21 11:58 Infused .Q1H1M STA Infusion Sodium Chloride Confirm 12/07/21 11:00 Sodium Chloride 0.9% 1000 Ml Administered 12/07/21 11:01 Dose 1,000 mls @ ud .ROUTE .STK-MED ONE Sodium Chloride 1,000 mls @ 100 mls/hr 12/07/21 12:15 12/07/21 12:20 Sodium Chloride 0.9% 1000 Ml IV 01/06/22 12:14 100 mls/hr .Q10H SIMONA Administration Levofloxacin/Dextrose 750 mg in 150 mls @ 100 mls/hr 12/07/21 12:58 12/07/21 13:05 Levofloxacin 750mg/150ml D5w IV 12/07/21 14:27 100 ml/hr STAT STA 100 mls/hr Administration Metronidazole 500 mg in 100 mls @ 200 mls/hr 12/07/21 12:58 12/07/21 14:37 Flagyl 500 Mg Ivpb IV 12/07/21 13:27 Not Given STAT STA Levofloxacin/Dextrose Confirm 12/07/21 13:03 Levofloxacin 750mg/150ml D5w Administered 12/07/21 13:04 Dose 750 mg in 150 mls @ ud IV .STK-MED ONE Sodium Chloride Confirm 12/07/21 12:18 Sodium Chloride 0.9% 1000 Ml Administered 12/07/21 12:19 Dose 1,000 mls @ ud .ROUTE .STK-MED ONE Sodium Chloride Confirm 12/07/21 22:03 Sodium Chloride 0.9% 1000 Ml Administered 12/07/21 22:04 Dose 1,000 mls @ ud .ROUTE .STK-MED ONE Non-Formulary Medication 25 mg 12/07/21 22:00 Topiramate 25 Mg [Topamax 25 Mg] PO 01/06/22 21:59 BID SIMONA Ondansetron HCl 4 mg 12/07/21 10:58 12/07/21 11:02 Ondansetron Hcl 4 Mg/2 Ml Vial IV 12/07/21 10:59 4 mg STAT ONE Administration Ondansetron HCl Confirm 12/07/21 11:00 Ondansetron Hcl 4 Mg/2 Ml Vial Administered 12/07/21 11:01 Dose 4 mg .ROUTE .STK-MED ONE Pantoprazole Sodium 40 mg 12/08/21 10:00 Pantoprazole 40 Mg Vial IV 01/07/22 09:59 Q24H10 SIMONA Pantoprazole Sodium 40 mg 12/07/21 19:23 12/07/21 19:37 Pantoprazole 40 Mg Vial IV 12/07/21 19:24 40 mg ONCE ONE Administration Intake & Output (Last 24 hours) 12/07/21 12/08/21 12/09/21 12/10/21 11:59 11:59 11:59 11:59 Intake Total 1464 3482 Balance 1464 3482 Weight 60.4 kg 60.2 kg 60.4 kg Microbiology Results (Last 24 hours) 12/07/21 12:15 Clean Catch Midstream Urine Culture - Final Escherichia Coli Orders (Last 24 hours) Category Date Time Status [place] Diet Diet 12/09/21 Lunch Active Hyoscyamine Sulfate 0.125 mg [Anaspaz 0.125 mg] Med 12/09/21 11:51 Active 0.125 mg SL QID PRN PRN Code(s): K57.32 - DVTRCLI OF LG INT W/O PERFORATION OR ABSCESS W/O BLEEDING (2) Acute UTI Current Visit: Yes Status: Acute Code(s): N39.0 - URINARY TRACT INFECTION, SITE NOT SPECIFIED
[2021-12-09] MEDS: PATIENT OWN MEDICATION PO SCH (14:44)
[2021-12-09] MEDS ORDERED: Klor Con PO ONE (18:08)
[2021-12-10] MEDS: ATARAX 25 MG PO PRN ×4 (00:15→20:58)
[2021-12-10] MEDS: FLAGYL 500 MG IVPB 500 MG/100 ML BAG IV SCH ×5 (00:15→23:59)
[2021-12-10] MEDS: ANASPAZ 0.125 MG SL PRN ×4 (00:16→20:58)
[2021-12-10 04:37] LABS: Absolute Neutrophil Ct (ANC) 2.34 x10^3/uL (1.4-6.9); Basophil (Absolute #) 0.04 x10^3/uL (0-0.4); Eosinophil % 6.6 % (0.00-5.0); Eosinophil (Absolute #) 0.32 x10^3/uL (0-0.5); Hemoglobin 11.8 g/dL (12.0-16.0); Lymphocyte (Absolute #) 1.61 x10^3/uL (1.0-4.6); Lymphocytes % 33.2 % (24.0-44.0); Mean Cell Volume 91.9 fL (78-100); Mean Corpuscular Hemoglobin 31.9 pg (26-32); Mean Corpuscular Hgb Concent. 34.7 g/dL (32-36); Mean Platelet Volume 10.1 fL (7.5-11.0); Monocytes % 10.3 % (0.0-12.0); Neutrophil % 48.3 % (36.0-66.0); Platelet Count 303 x10^3/uL (150-450); Red Cell Distribution Width 12.6 % (11.5-14.0); White Blood Count 4.9 x10^3/uL (4.0-10.5)
[2021-12-10 04:54] LABS: ANION GAP 12.9 MEQ/L (5-15); BLOOD UREA NITROGEN 7 mg/dL (7-17); CHLORIDE 111 mmol/L (98-107); Calcium 8.5 mg/dL (8.4-10.2); Carbon Dioxide 19 mmol/L (22-30); Creatinine 1 0.55 mg/dL (0.52-1.04); EST GLOMERULAR FILTRATION RATE > 60.0 ML/MIN; Glucose 86 mg/dL (74-106); Potassium 3.3 mmol/L (3.5-5.1); SODIUM 140 mmol/L (137-145)
[2021-12-10] MEDS: Sodium Chloride 0.9% 1000 ML 1,000 ML IV SCH ×2 (06:01→20:58)
[2021-12-10] MEDS: PATIENT OWN MEDICATION PO SCH (07:59)
[2021-12-10] MEDS: PROAMATINE PO SCH ×3 (07:59→16:01)
[2021-12-10] MEDS: Protonix 40MG Tablet PO SCH (08:05)
[2021-12-10] MEDS: Mylicon 80MG PO PRN (08:05)
[2021-12-10] MEDS ORDERED: Anucort-HC SUPPOSITORY PR PRN (09:16)
[2021-12-10] MEDS: K-LYTE PO SCH (10:09)
[2021-12-10] MEDS: Levofloxacin 500MG/100ML D5W 500 MG/100 ML BAG IV SCH (11:09)
--- NOTE | 2021-12-10 13:04 | PCM.NOTE ---
Date and Time: 12/10/21 1259 Subjective Assessment: Pt still having 6-7/10 abd discomfort ("it's not pain, but it's pressure"). Had diarrhea yesterday after eating mashed potatoes. Took alosetron then ate a piece of cod and tolerated that. Diarrhea does start out soft then gets watery. Pt's urine culture result + for E. coli, only resistant to bactrim. - Review of Systems Constitutional: No Fever Abdominal/Gastrointestinal: Diarrhea Objective Exam General Appearance: no apparent distress, alert Neurologic Exam: oriented x 3, cooperative Skin Exam: normal color, warm, dry, No rash Eye Exam: eyes nml inspection Ears, Nose, Throat Exam: moist mucous membranes Neck Exam: normal inspection Respiratory Exam: normal breath sounds, lungs clear, No crackles/rales, No rhonchi, No wheezing Cardiovascular Exam: regular rate/rhythm, normal heart sounds, No murmur Gastrointestinal/Abdomen Exam: soft, normal bowel sounds, tenderness (LLQ), No distention, No mass, No guarding, No rebound Extremity Exam: normal inspection, No pedal edema, No swelling Back Exam: normal inspection, No rash OBJECTIVE DATA Vital Signs: Vital Signs - 24 hr Temp Pulse Resp BP Pulse Ox 12/10/21 12:00 98.0 F 75 16 139/67 97 12/10/21 07:48 98.0 F 79 16 131/60 95 12/10/21 04:00 97.7 F 71 18 128/56 96 12/09/21 23:39 97.8 F 70 18 131/60 96 12/09/21 19:25 97.5 F 70 18 128/60 98 12/09/21 16:00 97 F 62 142/89 98 Pain Assessment - Last Documented Pain Intensity 0 Pain Scale [facility] Intake and Output: Intake & Output 12/08/21 12/09/21 12/10/21 12/11/21 11:59 11:59 11:59 11:59 Intake Total 1464 3482 3678 Output Total 300 Balance 1464 3482 3378 Weight 60.2 kg 60.4 kg 60.6 kg Lab Results: Lab Results-Last 24 Hours 12/10/21 12/10/21 Range/Units 04:13 04:13 WBC 4.9 (4.0-10.5) x10^3/uL RBC 3.70 L (4.1-5.4) x10^6/uL Hgb 11.8 L (12.0-16.0) g/dL Hct 34.0 L (35-47) % MCV 91.9 (78-100) fL MCH 31.9 (26-32) pg MCHC 34.7 (32-36) g/dL RDW 12.6 (11.5-14.0) % Plt Count 303 (150-450) x10^3/uL MPV 10.1 (7.5-11.0) fL Gran % 48.3 (36.0-66.0) % Immature Gran % (Auto) 0.8 H (0.00-0.4) % Nucleat RBC Rel Count 0.0 (0.00-0.1) % Eos # (Auto) 0.32 (0-0.5) x10^3/uL Immature Gran # (Auto) 0.04 H (0.00-0.03) x10^3u/L Absolute Lymphs (auto) 1.61 (1.0-4.6) x10^3/uL Absolute Monos (auto) 0.50 (0.0-1.3) x10^3/uL Absolute Nucleated RBC 0.00 (0.00-0.01) x10^3u/L Lymphocytes % 33.2 (24.0-44.0) % Monocytes % 10.3 (0.0-12.0) % Eosinophils % 6.6 H (0.00-5.0) % Basophils % 0.8 (0.0-0.4) % Absolute Granulocytes 2.34 (1.4-6.9) x10^3/uL Basophils # 0.04 (0-0.4) x10^3/uL Sodium 140 (137-145) mmol/L Potassium 3.3 L (3.5-5.1) mmol/L Chloride 111 H (98-107) mmol/L Carbon Dioxide 19 L (22-30) mmol/L Anion Gap 12.9 (5-15) MEQ/L BUN 7 (7-17) mg/dL Creatinine 0.55 (0.52-1.04) mg/dL Estimated GFR > 60.0 ML/MIN Glucose 86 (74-106) mg/dL Calcium 8.5 (8.4-10.2) mg/dL Assessment/Plan (1) Sigmoid diverticulitis Current Visit: Yes Status: Acute Assessment & Plan: ON levaquin and flagyl. Still having significant discomfort and not hungry this morning. See how she does today (continue bland diet) - may be able to d/c to home tomorrow on po antibiotic. Code(s): K57.32 - DVTRCLI OF LG INT W/O PERFORATION OR ABSCESS W/O BLEEDING (2) Acute UTI Current Visit: Yes Status: Acute Code(s): N39.0 - URINARY TRACT INFECTION, SITE NOT SPECIFIED
[2021-12-11] MEDS: ATARAX 25 MG PO PRN ×3 (06:18→23:56)
[2021-12-11] MEDS: PATIENT OWN MEDICATION PO SCH (06:18)
[2021-12-11] MEDS: ANASPAZ 0.125 MG SL PRN (06:18)
[2021-12-11] MEDS: Sodium Chloride 0.9% W/ 20 mEq KCl/LITER 1,000 ML IV SCH ×2 (06:19→17:36)
[2021-12-11] MEDS: FLAGYL 500 MG IVPB 500 MG/100 ML BAG IV SCH ×4 (06:19→23:51)
[2021-12-11] MEDS: Zofran 4 MG/2 ML VIAL IV PRN (06:23)
[2021-12-11 07:31] LABS: 027 TOX PROD PRESUMPTIVE NEGATIVE (NEGATIVE); TOXIGENIC C. DIFF ORG NEGATIVE (NEGATIVE)
[2021-12-11] MEDS: PROAMATINE PO SCH ×3 (07:42→15:42)
[2021-12-11] MEDS: Protonix 40MG Tablet PO SCH (10:12)
[2021-12-11] MEDS: K-LYTE PO SCH (10:12)
[2021-12-11] MEDS: solu-MEDROL 40 MG, Sterile H2O 10 ml 1 ML IV SCH ×4 (10:12→17:38)
[2021-12-11] MEDS: Levofloxacin 500MG/100ML D5W 500 MG/100 ML BAG IV SCH (10:12)
--- NOTE | 2021-12-11 17:24 | PCM.NOTE ---
Date and Time: 12/11/21 1720 Subjective Assessment: She continues to have diarrhea - yesterday ate baked potatoe and a little apple sauce and had abd pain and diarrhea. Probably had watery D yesterday x 7. Already had 4 episodes by 7:15 this morning when I rounded. - Review of Systems Constitutional: No Fever Abdominal/Gastrointestinal: Abdominal Pain, Diarrhea Objective Exam General Appearance: no apparent distress, alert, other (not as well appearing as usual) Neurologic Exam: oriented x 3, cooperative Skin Exam: normal color, warm, dry, No rash Eye Exam: eyes nml inspection Ears, Nose, Throat Exam: moist mucous membranes Neck Exam: normal inspection Respiratory Exam: normal breath sounds, lungs clear, No crackles/rales, No rhonchi, No wheezing Cardiovascular Exam: regular rate/rhythm, normal heart sounds, No murmur Gastrointestinal/Abdomen Exam: soft, tenderness (diffuse, generalized, but more so in LLQ), No normal bowel sounds (decreased but present) Extremity Exam: normal inspection, No pedal edema, No swelling Back Exam: normal inspection, No rash OBJECTIVE DATA Vital Signs: Vital Signs - 24 hr Temp Pulse Resp BP Pulse Ox 12/11/21 16:00 97.9 F 75 16 141/71 96 12/11/21 11:40 97.9 F 72 16 139/69 96 12/11/21 07:41 98.1 F 83 16 137/68 99 12/11/21 00:00 97.7 F 90 16 128/86 96 12/10/21 19:01 97.7 F 75 16 142/66 96 Pain Assessment - Last Documented Pain Intensity 0 Pain Scale Used [facility] Intake and Output: Intake & Output 12/09/21 12/10/21 12/11/21 12/12/21 11:59 11:59 11:59 11:59 Intake Total 3482 3678 2338 380 Output Total 300 Balance 3482 3378 2338 380 Weight 60.4 kg 60.6 kg 60.4 kg 60.4 kg Lab Results: Lab Results-Last 24 Hours 12/11/21 12/11/21 Range/Units 05:45 Unknown Stl Occult Blood (IFOB) POSITIVE A (NEGATIVE) C. difficile Screen NEGATIVE (NEGATIVE) C.difficile [id number] PRESUMPTIVE NEGATIVE (NEGATIVE) Assessment/Plan (1) Sigmoid diverticulitis Current Visit: Yes Status: Acute Assessment & Plan: She is on day #4 levaquin and flagyl. Labs are stable. WBC nl. Her diarrhea is copious and she is a bit dehydrated despite IV fluids; I do not think she would be able to maintain fluid status at home. Code(s): K57.32 - DVTRCLI OF LG INT W/O PERFORATION OR ABSCESS W/O BLEEDING (2) Acute UTI Current Visit: Yes Status: Resolved Code(s): N39.0 - URINARY TRACT INFECTION, SITE NOT SPECIFIED (3) Hypokalemia Current Visit: Yes Status: Acute Assessment & Plan: changed IV fluids to NS with 20 K+. Code(s): E87.6 - HYPOKALEMIA (4) Diarrhea Current Visit: Yes Status: Chronic Qualifiers: Diarrhea type: unspecified type Qualified Code(s): R19.7 - Diarrhea, uns pecified Assessment & Plan: Her c. diff was negative. + Hemoccult. Will try steroid for question of inflammatory diarrhea. Has been evaluated and treated over this summer by GI. Code(s): R19.7 - DIARRHEA, UNSPECIFIED
[2021-12-12] MEDS: Sodium Chloride 0.9% W/ 20 mEq KCl/LITER 1,000 ML IV SCH ×2 (01:23→07:25)
[2021-12-12] MEDS ORDERED: solu-MEDROL ONE ×3 (02:10→16:55)
[2021-12-12] MEDS: solu-MEDROL 40 MG, Sterile H2O 10 ml 1 ML IV SCH ×6 (02:11→17:09)
[2021-12-12] MEDS: FLAGYL 500 MG IVPB 500 MG/100 ML BAG IV SCH ×3 (05:44→17:08)
[2021-12-12] MEDS: Sodium Chloride 0.9% 1000 ML 1,000 ML IV SCH (05:56)
[2021-12-12] MEDS: PROAMATINE PO SCH ×3 (07:17→16:48)
[2021-12-12 07:21] LABS: Basophil (Absolute #) 0.01 x10^3/uL (0-0.4); Eosinophil (Absolute #) 0 x10^3/uL (0-0.5); Hematocrit 37.1 % (35-47); Hemoglobin 12.5 g/dL (12.0-16.0); Lymphocytes % 10.4 % (24.0-44.0); Mean Cell Volume 93.7 fL (78-100); Mean Corpuscular Hemoglobin 31.6 pg (26-32); Mean Corpuscular Hgb Concent. 33.7 g/dL (32-36); Mean Platelet Volume 9.4 fL (7.5-11.0); Monocyte (Absolute #) 0.26 x10^3/uL (0.0-1.3); Neutrophil % 85.6 % (36.0-66.0); Platelet Count 332 x10^3/uL (150-450); Red Blood Count 3.96 x10^6/uL (4.1-5.4); Red Cell Distribution Width 12.7 % (11.5-14.0); White Blood Count 8.7 x10^3/uL (4.0-10.5)
[2021-12-12] MEDS: Mylicon 80MG PO PRN (07:33)
[2021-12-12 07:36] LABS: ALKALINE PHOSPHATASE 49 U/L (38-126); ANION GAP 16.6 MEQ/L (5-15); BLOOD UREA NITROGEN 8 mg/dL (7-17); CHLORIDE 113 mmol/L (98-107); Calcium 9.4 mg/dL (8.4-10.2); Creatinine 1 0.54 mg/dL (0.52-1.04); EST GLOMERULAR FILTRATION RATE > 60.0 ML/MIN; Glucose 146 mg/dL (74-106); Potassium 3.8 mmol/L (3.5-5.1); SGOT/AST 32 U/L (14-36); SGPT/ALT 18 U/L (0-35); SODIUM 142 mmol/L (137-145); Total Protein 6.9 g/dL (6.3-8.2)
[2021-12-12 07:52] LABS: Carbon Dioxide 16 mmol/L (22-30)
[2021-12-12] MEDS: ATARAX 25 MG PO PRN ×2 (08:52→16:32)
[2021-12-12] MEDS: K-LYTE PO SCH (09:14)
[2021-12-12] MEDS: Levofloxacin 500MG/100ML D5W 500 MG/100 ML BAG IV SCH (09:14)
[2021-12-12] MEDS: PATIENT OWN MEDICATION PO SCH (09:16)
[2021-12-12] MEDS: Protonix 40MG Tablet PO SCH (09:16)
[2021-12-12] MEDS ORDERED: Sodium Chloride 0.9% 500 ML 500 ML IV ONE (10:25)
[2021-12-12] MEDS ORDERED: Klor Con PO SCH (10:26)
[2021-12-12] MEDS ORDERED: Lactated Ringers 1,000 ML IV SCH (10:30)
[2021-12-12 10:41] LABS: A-aADO2 22; ABG HEMOGLOBIN 13.4; ABG POTASSIUM 3.9 (3.5-5.1); ARTERIAL BLD GAS O2 SATURATION 98.6 % (95-100); ARTERIAL BLOOD GAS BASE EXCESS -4.5 (-2.0-2.0); ARTERIAL BLOOD GAS FIO2 21 %; ARTERIAL BLOOD GAS PCO2 22 mmHg (35-45); ARTERIAL BLOOD GAS PO2 100 mmHg (75-100); ARTERIAL BLOOD GAS pH 7.49 (7.35-7.45); CARBOXYHEMOGLOBIN 0.3 % THgb (0.0-6.9); HCO3- 16.8 (22-28); HGB O2 SAT 96.9 g/dF (94-100); Methhemoglobin 1.4 % (1.4-1.5)
[2021-12-12 10:42] LABS: ABG SITE LEFT BRACHIAL
--- NOTE | 2021-12-12 11:18 | PCM.DS ---
Discharge Summary Date of Admission: 12/08/21 10:51 Admitting Physician: SAY RENTERIA Primary Care Provider: SAY RENTERIA Allergies Allergies Penicillins Allergy (Verified 02/21/21 15:15) Hospital Summary - Vitals & Intake/Output Vital Signs: Vital Signs Temperature 97.5 F 12/12/21 06:40 Pulse Rate 102 H 12/12/21 06:40 Respiratory Rate 16 12/12/21 06:40 Blood Pressure 156/76 12/12/21 06:40 O2 Sat by Pulse Oximetry 97 12/12/21 06:40 Intake & Output: Intake & Output 12/09/21 12/10/21 12/11/21 12/12/21 11:59 11:59 11:59 11:59 Intake Total 3482 3678 2338 4010 Output Total 300 200 Balance 3482 3378 2338 3810 Weight 60.4 kg 60.6 kg 60.4 kg 59.7 kg - Lab Result Diagrams: 12/12/21 07:20 12/12/21 07:20 Lab Results-Last 24 Hrs: Lab Results-Last 24 Hours 12/11/21 12/12/21 12/12/21 Range/Units 05:45 07:20 07:20 WBC 8.7 (4.0-10.5) x10^3/uL RBC 3.96 L (4.1-5.4) x10^6/uL Hgb 12.5 (12.0-16.0) g/dL Hct 37.1 (35-47) % MCV 93.7 (78-100) fL MCH 31.6 (26-32) pg MCHC 33.7 (32-36) g/dL RDW 12.7 (11.5-14.0) % Plt Count 332 (150-450) x10^3/uL MPV 9.4 (7.5-11.0) fL Gran % 85.6 H (36.0-66.0) % Immature Gran % (Auto) 0.9 H (0.00-0.4) % Nucleat RBC Rel Count 0.0 (0.00-0.1) % Eos # (Auto) 0 (0-0.5) x10^3/uL Immature Gran # (Auto) 0.08 H (0.00-0.03) x10^3u/L Absolute Lymphs (auto) 0.90 L (1.0-4.6) x10^3/uL Absolute Monos (auto) 0.26 (0.0-1.3) x10^3/uL Absolute Nucleated RBC 0.00 (0.00-0.01) x10^3u/L Lymphocytes % 10.4 L (24.0-44.0) % Monocytes % 3.0 (0.0-12.0) % Eosinophils % 0.0 (0.00-5.0) % Basophils % 0.1 (0.0-0.4) % Absolute Granulocytes 7.40 H (1.4-6.9) x10^3/uL Basophils # 0.01 (0-0.4) x10^3/uL Sodium 142 (137-145) mmol/L Potassium 3.8 (3.5-5.1) mmol/L Chloride 113 H (98-107) mmol/L Carbon Dioxide 16 L* (22-30) mmol/L Anion Gap 16.6 H (5-15) MEQ/L BUN 8 (7-17) mg/dL Creatinine 0.54 (0.52-1.04) mg/dL Estimated GFR > 60.0 ML/MIN Glucose 146 H (74-106) mg/dL Calcium 9.4 (8.4-10.2) mg/dL Total Bilirubin 0.40 (0.2-1.3) mg/dL AST 32 (14-36) U/L ALT 18 (0-35) U/L Alkaline Phosphatase 49 (38-126) U/L Serum Total Protein 6.9 (6.3-8.2) g/dL Albumin 4.0 (3.5-5.0) g/dL Stl Occult Blood (IFOB) POSITIVE A (NEGATIVE) Micro Results-Entire Visit: Microbiology 12/07/21 12:15 Urine Culture - Final Clean Catch Midstream Escherichia Coli - Procedures and Test Procedures and Tests throughout Hospitalization: Therapy Orders & Screens 12/07/21 14:33 Respiratory Therapy Assessment DAILY Comment: Diagnosis: Acute sigmoid diverticulitis Final Diagnosis/Problem List - Final Discharge Diagnosis/Problem (1) Sigmoid diverticulitis Current Visit: Yes Status: Acute Assessment & Plan: On day #6 levaquin and flagyl. Will finish 7d. Most improvement seems to have come from IV steroid - when ready to d/c to home, will send home on steroid. Code(s): K57.32 - DVTRCLI OF LG INT W/O PERFORATION OR ABSCESS W/O BLEEDING (2) Metabolic acidosis Current Visit: Yes Status: Acute Assessment & Plan: Was going to send pt home, then BMP came back with HCO3 of 16, quite low. Changed fluids to LR. Pt notes she was hyperventilating last night, but should have resolved since then. Looks most suspicious for anion gap and nonanion gap metabolic acidosis, but her pH is actually high at 7.49. Will recheck BMP in a few hours. Code(s): E87.20 - (3) Hypokalemia Current Visit: Yes Status: Acute Assessment & Plan: Increase klyte - home on klyte. Code(s): E87.6 - HYPOKALEMIA (4) Diarrhea Current Visit: Yes Status: Chronic Code(s): R19.7 - DIARRHEA, UNSPECIFIED - Discharge Disposition: Home, Self-Care Condition: Stable Prescriptions: No Action Aspirin EC 81 mg [Ecotrin 81 mg] 81 mg PO DAILY Fluticasone Propionate [Flonase NASAL] 1 gm NS UD PRN PRN Reason: Allergies Midodrine HCl 10 mg PO TID Colestipol HCl [Colestid] 1 gm PO BID Atorvastatin Calcium 10 mg PO DAILY Alosetron HCl 0.5 mg PO DAILY PANTOPRAZOLE 40 mg Tablet [Protonix 40MG Tablet] 40 mg PO DAILY Hyoscyamine Sulfate 1 - 2 tab PO QID PRN PRN Reason: Diarrhea Instructions: Diverticulitis (DC), [place] Diet Follow up with: SAY RENTERIA [Primary Care Provider] - 12/17/21 11:30 am
[2021-12-12 15:30] LABS: ANION GAP 15.1 MEQ/L (5-15); BLOOD UREA NITROGEN 9 mg/dL (7-17); CHLORIDE 111 mmol/L (98-107); Calcium 9.2 mg/dL (8.4-10.2); Carbon Dioxide 19 mmol/L (22-30); Creatinine 1 0.56 mg/dL (0.52-1.04); EST GLOMERULAR FILTRATION RATE > 60.0 ML/MIN; Glucose 217 mg/dL (74-106); Potassium 3.7 mmol/L (3.5-5.1); SODIUM 141 mmol/L (137-145)
[2021-12-12 15:48] VITALS: BP 129/62; PULSE 86; O2SAT 96
[2021-12-12] MEDS: ANASPAZ 0.125 MG SL PRN (16:35)
--- NOTE | 2021-12-12 17:37 | PCM.DCORD ---
- Discharge Disposition: Home, Self-Care Condition: Stable Prescriptions: New Prednisone 20 mg [Deltasone 20 mg] 20 mg PO DAILY #17 tablet Metronidazole 500 mg [Flagyl 500 MG] 500 mg PO TID #4 tablet Potassium Bicarbonate [K-Lyte ] 25 meq PO BID #8 unit Levofloxacin [Levofloxacin 500 MG Tablet] 500 mg PO DAILY #1 tablet Continue Aspirin EC 81 mg [Ecotrin 81 mg] 81 mg PO DAILY Fluticasone Propionate [Flonase NASAL] 1 gm NS UD PRN PRN Reason: Allergies Midodrine HCl 10 mg PO TID Colestipol HCl [Colestid] 1 gm PO BID Atorvastatin Calcium 10 mg PO DAILY Alosetron HCl 0.5 mg PO DAILY PANTOPRAZOLE 40 mg Tablet [Protonix 40MG Tablet] 40 mg PO DAILY Hyoscyamine Sulfate 1 - 2 tab PO QID PRN PRN Reason: Diarrhea Instructions: Diverticulitis (DC), [place] Diet Follow up with: SAY RENTERIA [Primary Care Provider] - 12/17/21 11:30 am
[2021-12-12] MEDS ORDERED: K-LYTE PO SCH (22:00)
== END 2021-12-12 18:25 | disposition home or self-care (01) | DRG 392 ==
LOC: ED 10:11 → MED SURG 14:13 → OBSVTOIN 12-08 10:51
PROVIDERS: ADMIT Family Medicine; ATTEND Family Medicine
DX: K57.32 Diverticulitis of large intestine without perforation or abscess without bleeding (principal); N39.0 Urinary tract infection, site not specified; E87.6 Hypokalemia; R19.7 Diarrhea, unspecified; K64.9 Unspecified hemorrhoids; Z79.899 Other long term (current) drug therapy; Z20.828 Contact with and (suspected) exposure to other viral communicable diseases
CPT/HCPCS: 0241U; 36415; 36600; 74176; 80048; 80053; 81015; 82274; 82375; 82803; 83690; 85025; 87077; 87086; 87186; 87493; 94760; 96360; 96365; 96374; 99285; G0378; J1956; J2270; J2405; J2920; A9270-GY

== ENCOUNTER 2021-12-25 10:14 | Inpatient (IN) | payer MEDICARE ==
[2021-12-25] MEDS ORDERED: Sodium Chloride 0.9% 1000 ML 1,000 ML IV STA (10:30)
[2021-12-25] MEDS ORDERED: Sodium Chloride 0.9% 1000 ML 1,000 ML ONE (10:43)
[2021-12-25 10:48] LABS: Absolute Neutrophil Ct (ANC) 8.05 x10^3/uL (1.4-6.9); Basophil (Absolute #) 0.03 x10^3/uL (0-0.4); Eosinophil % 1.6 % (0.00-5.0); Eosinophil (Absolute #) 0.17 x10^3/uL (0-0.5); Hematocrit 39.7 % (35-47); Hemoglobin 13.2 g/dL (12.0-16.0); Lymphocyte (Absolute #) 1.49 x10^3/uL (1.0-4.6); Mean Cell Volume 95.7 fL (78-100); Mean Corpuscular Hemoglobin 31.8 pg (26-32); Mean Corpuscular Hgb Concent. 33.2 g/dL (32-36); Mean Platelet Volume 10.5 fL (7.5-11.0); Monocyte (Absolute #) 0.86 x10^3/uL (0.0-1.3); Monocytes % 8.1 % (0.0-12.0); Neutrophil % 75.4 % (36.0-66.0); Platelet Count 205 x10^3/uL (150-450); Red Blood Count 4.15 x10^6/uL (4.1-5.4); Red Cell Distribution Width 13.2 % (11.5-14.0); White Blood Count 10.7 x10^3/uL (4.0-10.5)
[2021-12-25] MEDS ORDERED: Ativan 2 MG/1 ML VIAL IV ONE (10:56)
[2021-12-25] MEDS ORDERED: Ativan 2 MG/1 ML VIAL ONE (10:59)
--- NOTE | 2021-12-25 11:02 | ERPHSYRPT ---
- History of Present Illness Historian: patient Exam Limitations: no limitations Patient Subjective Stated Complaint: Diarrhea Triage Nursing Assessment: Patient ambulated back to ED and transferred self to bed. Patient A+O X 3. Patient's skin pale, warm and dry. Patient complains of diarrhea and left lower abdominal pain since Friday. Patient recently d/c from [facility] on 12/12/2021 after 6 days stay with UTI and Diverticulities. Patient states she is unable to keep anything down. Patient complains of left lower abdominal pain 7/10. Patient complains of nausea, but denies vomiting. Physician History: 71 yo WF w diarrhea x 3 days. Pt states diarrhea had a little blood in it at first but has resolved. She has LLQ pain which she describes as sharp and 7/10 on scale. Pain is worse when she is having diarrhea. N/V/chest pain/cough/coryza /fever all denied. Pt also denies dysuria/hematuria. She was admitted in late November for diverticulitis and diarrhea due to her irritable bowel syndrome. Pt is not currently on antibiotics. Timing/Duration: other (3 days) Activities at Onset: rest Quality: sharpness, stabbing Abdominal Pain Onset Location: LLQ Pain Radiation: no radiation Severity of Pain-Max: moderate Severity of Pain-Current: moderate Modifying Factors: Improves With: nothing Associated Symptoms: denies symptoms, diarrhea, loss of appetite Previous symptoms: same symptoms as today Allergies/Adverse Reactions: Penicillins Allergy (Verified 12/25/21 10:25) Home Medications: Alosetron HCl 0.5 mg PO DAILY 02/21/21 [History] Aspirin EC 81 mg [Ecotrin 81 mg] 81 mg PO DAILY 02/21/21 [History] Atorvastatin Calcium 10 mg PO DAILY 02/21/21 [History] Colestipol HCl [Colestid] 1 gm PO BID 02/21/21 [History] Fluticasone Propionate [Flonase NASAL] 1 gm NS UD PRN 02/21/21 [History] Midodrine HCl 10 mg PO TID 02/21/21 [History] Hyoscyamine Sulfate 1 - 2 tab PO QID PRN 12/07/21 [History] PANTOPRAZOLE 40 mg Tablet [Protonix 40MG Tablet] 40 mg PO DAILY 12/07/21 [History] Hx Tetanus, Diphtheria Vaccination/Date Given: Yes Hx Influenza Vaccination/Date Given: Yes Hx Pneumococcal Vaccination/Date Given: Yes Immunizations Up to Date: Yes Travel Risk - International Travel Have you traveled outside of the country in past 3 weeks: No - Coronavirus Screening Are you exhibiting any of the following symptoms?: No Close contact with a COVID-19 positive Pt in past 14-21 Days: No - Vaccine Status Have you recieved a Covid-19 vaccination: Yes [employer] Plan Coordinator: Moderna - Vaccination Dates Date of 2cond Vaccination (if applicable): 06/2020 - Review of Systems Constitutional: No Symptoms, Lethargy, Malaise Eyes: No Symptoms Ears, Nose, & Throat: No Symptoms Respiratory: No Symptoms Cardiac: No Symptoms Abdominal/Gastrointestinal: No Symptoms, Abdominal Pain, Diarrhea Genitourinary Symptoms: No Symptoms Musculoskeletal: No Symptoms Skin: No Symptoms Neurological: No Symptoms Psychological: No Symptoms Endocrine: No Symptoms Hematologic/Lymphatic: No Symptoms Immunological/Allergic: No Symptoms - Past Medical History Pertinent Past Medical History: Yes Neurological History: Migraines ENT History: No Pertinent History Cardiac History: Other Respiratory History: No Pertinent History Endocrine Medical History: No Pertinent History Musculoskeletal History: Arthritis GI Medical History: Irritable Bowel History: No Pertinent History Psycho-Social History: No Pertinent History Female Reproductive Disorders: No Pertinent History Other Medical History: orthostatic hypotension - Past Surgical History Past Surgical History: Yes Neuro Surgical History: No Pertinent History Cardiac: No Pertinent History Respiratory: No Pertinent History Gastrointestinal: Cholecystectomy Genitourinary: No Pertinent History Musculoskeletal: No Pertinent History Female Surgical History: Hysterectomy Other Surgical History: breast reduction and lift, foot - Social History Smoking Status: Never smoker Exposure to second hand smoke: No Drug Use: none Patient Lives Alone: No Significant Family History: no pertinent family hx - Nursing Vital Signs Nursing Vital Signs: Initial Vital Signs Temperature 98.2 F 12/25/21 10:28 Pulse Rate 93 H 12/25/21 10:28 Respiratory Rate 18 12/25/21 10:28 Blood Pressure 121/80 12/25/21 10:28 O2 Sat by Pulse Oximetry 99 12/25/21 10:28 Pain Scale Pain Intensity 4 WNL - Physical Exam General Appearance: no apparent distress, anxiety Eye Exam: PERRL/EOMI, eyes nml inspection Ears, Nose, Throat Exam: normal ENT inspection, TMs normal, pharynx normal, moist mucous membranes Neck Exam: normal inspection, non-tender, supple, full range of motion, No meningismus, No mass, No Brudzinski, No Kernig's Respiratory Exam: normal breath sounds, lungs clear, airway intact, No chest tenderness, No respiratory distress Cardiovascular Exam: regular rate/rhythm, normal peripheral pulses, capillary refill <2 sec, No murmur Gastrointestinal/Abdomen Exam: soft, normal bowel sounds, tenderness (Moderate TTP LLQ w guarding but no rebound) Back Exam: normal inspection, normal range of motion, No CVA tenderness, No vertebral tenderness Extremity Exam: normal inspection, normal range of motion Neurologic Exam: alert, oriented x 3, cooperative, 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, normal mood/affect, nml cerebellar function, nml station & gait, sensation nml, No motor deficits, No sensory deficit Skin Exam: normal color, warm, dry, No rash Lymphatic Exam: No adenopathy SpO2 Interpretation: normal SpO2: 99 O2 Delivery: Room Air - Course Nursing assessment & vital signs reviewed: Yes - CT Exams Abdomen/Pelvis CT Interpretation: Discussed w/radiologist (Transverse-descending colon colitis /stable diverticulitis) Ordered Tests: Active Orders 24 hr Category Date Time Status Bedrest with BRP/BSC ROUTINE Activity 12/25/21 12:42 Active Code Status Order ROUTINE Care 12/25/21 12:41 Active IV Care Q6H Care 12/25/21 12:41 Active Intake and Output Q12H Care 12/25/21 12:41 Active Neuro Checks Q4H Care 12/25/21 12:[address] in Observation ROUTINE Care 12/25/21 12:41 Active Clear Liquid Diet 12/25/21 Dinner Active ABDOMEN AND PELVIS W/0 CONTRAS [CT] Stat Exams 12/25/21 11:26 Completed AMYLASE Stat Lab 12/25/21 10:40 Completed CBC W DIFF AM.LAB Lab 12/26/21 04:00 Ordered CBC W DIFF Stat Lab 12/25/21 10:40 Completed CMP AM.LAB Lab 12/26/21 04:00 Ordered CMP Stat Lab 12/25/21 10:40 Completed LIPASE Stat Lab 12/25/21 10:40 Completed Lactic Acid Stat Lab 12/25/21 10:40 Completed UA W/RFX CULTURE Stat Lab 12/25/21 12:12 Ordered Transfer Order Routine Transfer 12/25/21 Ordered Medication Summary Generic Name Dose Route Start Last Admin Trade Name Paco PRN Reason Stop Dose Admin Enoxaparin Sodium 40 mg 12/26/21 10:00 Enoxaparin Sodium 40 Mg/0.4 Ml Syringe SQ 01/25/22 09:59 DAILY SIMONA Hydromorphone HCl 1 mg 12/25/21 12:41 Hydromorphone 1 Mg/1ml Inj 1 Mg/Ml Syringe IV 12/30/21 12:40 Q4H PRN PRN PAIN Sodium Chloride 1,000 mls @ 100 mls/hr 12/25/21 12:45 Sodium Chloride 0.9% 1000 Ml IV 01/24/22 12:44 .Q10H SIMONA Metronidazole 500 mg in 100 mls @ 200 mls/hr 12/25/21 12:44 12/25/21 12:49 Flagyl 500 Mg Ivpb IV 12/25/21 13:13 200 mls/hr STAT STA 200 mls/hr Administration Metronidazole 500 mg in 100 mls @ 200 mls/hr 12/25/21 18:00 Flagyl 500 Mg Ivpb IV 01/24/22 17:59 Q6HT SIMONA Ondansetron HCl 4 mg 12/25/21 12:41 Ondansetron Hcl 4 Mg/2 Ml Vial IV 01/24/22 12:40 Q6H PRN PRN NAUSEA/VOMITING Pantoprazole Sodium 40 mg 12/26/21 10:00 Pantoprazole 40 Mg Vial IV 01/25/22 09:59 Q24H10 SIMONA Discontinued Medications Generic Name Dose Route Start Last Admin Trade Name Paco PRN Reason Stop Dose Admin Methylprednisolone Sodium 0 mg 12/25/21 12:45 12/25/21 12:49 Succinate 80 mg/ Sterile Water IV 12/25/21 12:46 80 mg 2 ml STAT ONE Administration Sodium Chloride 1,000 mls @ 999 mls/hr 12/25/21 10:30 12/25/21 11:58 Sodium Chloride 0.9% 1000 Ml IV 12/25/21 11:30 Infused .Q1H1M STA Infusion Sodium Chloride Confirm 12/25/21 10:43 Sodium Chloride 0.9% 1000 Ml Administered 12/25/21 10:44 Dose 1,000 mls @ ud .ROUTE .STK-MED ONE Lorazepam 1 mg 12/25/21 10:56 12/25/21 11:00 Lorazepam 2 Mg/1 Ml 2 Mg Vial IV 12/25/21 10:57 1 mg STAT ONE Administration Lorazepam Confirm 12/25/21 10:59 Lorazepam 2 Mg/1 Ml 2 Mg Vial Administered 12/25/21 11:00 Dose 2 mg .ROUTE .STK-MED ONE Methylprednisolone Sodium Succinate Confirm 12/25/21 12:47 Methylprednis Sod Succ 125 Mg/2 Ml Vial Administered 12/25/21 12:48 Dose 125 mg .ROUTE .STK-MED ONE Sterile Water Confirm 12/25/21 12:47 Water For Injection,Sterile 10 Ml Vial Administered 12/25/21 12:48 Dose 10 ml IJ .STK-MED ONE Lab/Rad Data: Laboratory Result Diagrams 12/25/21 10:40 12/25/21 10:40 Laboratory Results 12/25/21 12/25/21 12/25/21 Range/Units 10:40 10:40 10:40 WBC (4.0-10.5) x10^3/uL RBC (4.1-5.4) x10^6/uL Hgb (12.0-16.0) g/dL Hct (35-47) % MCV (78-100) fL MCH (26-32) pg MCHC (32-36) g/dL RDW (11.5-14.0) % Plt Count (150-450) x10^3/uL MPV (7.5-11.0) fL Gran % (36.0-66.0) % Immature Gran % (Auto) (0.00-0.4) % Nucleat RBC Rel Count (0.00-0.1) % Eos # (Auto) (0-0.5) x10^3/uL Immature Gran # (Auto) (0.00-0.03) x10^3u/L Absolute Lymphs (auto) (1.0-4.6) x10^3/uL Absolute Monos (auto) (0.0-1.3) x10^3/uL Absolute Nucleated RBC (0.00-0.01) x10^3u/L Lymphocytes % (24.0-44.0) % Monocytes % (0.0-12.0) % Eosinophils % (0.00-5.0) % Basophils % (0.0-0.4) % Absolute Granulocytes (1.4-6.9) x10^3/uL Basophils # (0-0.4) x10^3/uL Sodium 135 L (137-145) mmol/L Potassium 3.7 (3.5-5.1) mmol/L Chloride 102 (98-107) mmol/L Carbon Dioxide 23 (22-30) mmol/L Anion Gap 13.3 (5-15) MEQ/L BUN 10 (7-17) mg/dL Creatinine 0.92 (0.52-1.04) mg/dL Estimated GFR > 60.0 ML/MIN Glucose 117 H (74-106) mg/dL Lactic Acid 2.0 (0.4-2.0) Calcium 8.7 (8.4-10.2) mg/dL Total Bilirubin 1.30 (0.2-1.3) mg/dL AST 27 (14-36) U/L ALT 17 (0-35) U/L Alkaline Phosphatase 68 (38-126) U/L Serum Total Protein 6.5 (6.3-8.2) g/dL Albumin 3.9 (3.5-5.0) g/dL Amylase 47 (30-110) U/L Lipase 123 (23-300) U/L Influenza Type A Ag NEGATIVE (NEGATIVE) Influenza Type B Ag NEGATIVE (NEGATIVE) RSV (PCR) NEGATIVE (Negative) SARS-CoV-2 (PCR) NEGATIVE (NEGATIVE) 12/25/21 Range/Units 10:40 WBC 10.7 H (4.0-10.5) x10^3/uL RBC 4.15 (4.1-5.4) x10^6/uL Hgb 13.2 (12.0-16.0) g/dL Hct 39.7 (35-47) % MCV 95.7 (78-100) fL MCH 31.8 (26-32) pg MCHC 33.2 (32-36) g/dL RDW 13.2 (11.5-14.0) % Plt Count 205 (150-450) x10^3/uL MPV 10.5 (7.5-11.0) fL Gran % 75.4 H (36.0-66.0) % Immature Gran % (Auto) 0.6 H (0.00-0.4) % Nucleat RBC Rel Count 0.0 (0.00-0.1) % Eos # (Auto) 0.17 (0-0.5) x10^3/uL Immature Gran # (Auto) 0.06 H (0.00-0.03) x10^3u/L Absolute Lymphs (auto) 1.49 (1.0-4.6) x10^3/uL Absolute Monos (auto) 0.86 (0.0-1.3) x10^3/uL Absolute Nucleated RBC 0.00 (0.00-0.01) x10^3u/L Lymphocytes % 14.0 L (24.0-44.0) % Monocytes % 8.1 (0.0-12.0) % Eosinophils % 1.6 (0.00-5.0) % Basophils % 0.3 (0.0-0.4) % Absolute Granulocytes 8.05 H (1.4-6.9) x10^3/uL Basophils # 0.03 (0-0.4) x10^3/uL Sodium (137-145) mmol/L Potassium (3.5-5.1) mmol/L Chloride (98-107) mmol/L Carbon Dioxide (22-30) mmol/L Anion Gap (5-15) MEQ/L BUN (7-17) mg/dL Creatinine (0.52-1.04) mg/dL Estimated GFR ML/MIN Glucose (74-106) mg/dL Lactic Acid (0.4-2.0) Calcium (8.4-10.2) mg/dL Total Bilirubin (0.2-1.3) mg/dL AST (14-36) U/L ALT (0-35) U/L Alkaline Phosphatase (38-126) U/L Serum Total Protein (6.3-8.2) g/dL Albumin (3.5-5.0) g/dL Amylase (30-110) U/L Lipase (23-300) U/L Influenza Type A Ag (NEGATIVE) Influenza Type B Ag (NEGATIVE) RSV (PCR) (Negative) SARS-CoV-2 (PCR) (NEGATIVE) - Progress Progress Note: 12/25/21 12:[address] [id number] to start IV flagyl/80mg IV Solumedrol 12/25/21 12:51 1L NS bolus Ativan 1mg IV Pt given 500mg IV flagyl in ER/80mg IV solumedrol Pt unable to give stool specimen/urine specimen Discussed with : Ron Counseled pt/family regarding: lab results, diagnosis, need for follow-up, rad results - Departure Departure Disposition: Observation Clinical Impression: Colitis, Diverticulitis Condition: Stable Critical Care Time: No Referrals: SAY RENTERIA [Primary Care Provider] - Follow up/PCP as directed
[2021-12-25 11:06] LABS: ALBUMIN 3.9 g/dL (3.5-5.0); ALKALINE PHOSPHATASE 68 U/L (38-126); AMYLASE 47 U/L (30-110); ANION GAP 13.3 MEQ/L (5-15); BLOOD UREA NITROGEN 10 mg/dL (7-17); CHLORIDE 102 mmol/L (98-107); Calcium 8.7 mg/dL (8.4-10.2); Carbon Dioxide 23 mmol/L (22-30); Creatinine 1 0.92 mg/dL (0.52-1.04); EST GLOMERULAR FILTRATION RATE > 60.0 ML/MIN; Glucose 117 mg/dL (74-106); LIPASE 123 U/L (23-300); Potassium 3.7 mmol/L (3.5-5.1); SGOT/AST 27 U/L (14-36); SGPT/ALT 17 U/L (0-35); SODIUM 135 mmol/L (137-145); Total Protein 6.5 g/dL (6.3-8.2)
[2021-12-25 11:24] LABS: INFLUENZA A NEGATIVE (NEGATIVE); INFLUENZA B NEGATIVE (NEGATIVE); RESPIRATORY SYNCTIAL VIRUS NEGATIVE (Negative); SARS-CoV-2 Xpert Express NEGATIVE (NEGATIVE)
--- NOTE | 2021-12-25 12:06 | XRAY ---
Indication: Left lower quadrant pain and diarrhea. Diverticulitis. Multiple contiguous axial images obtained through the abdomen and pelvis without contrast. Comparison: December 07, 2021 Lung bases demonstrates new subtle patchy groundglass airspace disease bilaterally. New minimal bibasilar dependent atelectasis. Incidental anterior left lower lobe calcified granuloma. Heart not enlarged. Stable small hiatal hernia. Noncontrasted stomach and bowel loops nonobstructed with normal appendix. Grossly stable sigmoid diverticulitis. New circumferential wall thickening distal transverse and entire descending colon favoring additional inflammatory changes with now tiny colic fluid. No walled off fluid collection or free air. Grossly stable exophytic right renal cyst, tiny hepatic/splenic calcified granulomas, cholecystectomy, and partial hysterectomy with bilateral pelvic clips. Remaining liver, pancreas, spleen, adrenal glands, kidneys, ureters, bladder, and aorta are unremarkable for noncontrast exam. Impression: 1. Grossly stable sigmoid diverticulitis with new inflammatory changes of the left hemicolon as detailed. No perforation. 2. New patchy groundglass airspace disease in both lung bases. 3. Again chronic findings including small hiatal hernia, right renal cyst, and old granulomatous disease.
[2021-12-25] MEDS ORDERED: Hydromorphone 1 mg/ml Injection IV PRN (12:41)
[2021-12-25] MEDS ORDERED: FLAGYL 500 MG IVPB 500 MG/100 ML BAG IV STA (12:44)
[2021-12-25] MEDS ORDERED: solu-MEDROL 80 MG, Sterile H2O 10 ml 2 ML IV ONE ×2 (12:45)
[2021-12-25] MEDS ORDERED: solu-MEDROL ONE (12:47)
[2021-12-25] MEDS ORDERED: Sterile H2O 10 ml IJ ONE (12:47)
[2021-12-25] MEDS ORDERED: FLAGYL 500 MG IVPB 500 MG/100 ML BAG IV ONE (12:48)
[2021-12-25 13:29] LABS: WBC 0-2 /HPF (0-5)
[2021-12-25 13:36] LABS: Appearance CLEAR (CLEAR); Bilirubin NEGATIVE (NEGATIVE); Dipstick done @ ? MAIN LAB; Glucose NEGATIVE (NEGATIVE); Ketones NEGATIVE (NEGATIVE); Nitrite NEGATIVE (NEGATIVE); Ph 7.5 (5-6); Protein,Urine Dip NEGATIVE (Negative); RBC MODERATE Ery/ul (0-5); Urobilinogen 0.2 mg/dL (0-1)
[2021-12-25 13:40] LABS: Urine Cultured Indicated? NO
[2021-12-25] MEDS: ENOXAPARIN SODIUM SQ SCH (13:55)
[2021-12-25] MEDS: Sodium Chloride 0.9% 1000 ML 1,000 ML IV SCH (13:56)
[2021-12-25] MEDS ORDERED: PROTONIX 40 MG IV IV SCH (14:00)
[2021-12-25] MEDS ORDERED: Flonase NASAL NS PRN (14:58)
[2021-12-25] MEDS: ECOTRIN 81 MG PO SCH (15:34)
[2021-12-25] MEDS: Zocor 10MG PO SCH (15:34)
[2021-12-25] MEDS: K-LYTE PO SCH ×2 (15:34→23:06)
[2021-12-25] MEDS: FLAGYL 500 MG IVPB 500 MG/100 ML BAG IV SCH ×2 (17:19→23:06)
[2021-12-25] MEDS: Ativan 2 MG/1 ML VIAL IV PRN (20:34)
[2021-12-25] MEDS: Protonix 40MG Tablet PO SCH (23:06)
[2021-12-26 05:02] LABS: Basophil (Absolute #) 0.01 x10^3/uL (0-0.4); Eosinophil (Absolute #) 0 x10^3/uL (0-0.5); Hematocrit 33.2 % (35-47); Lymphocyte (Absolute #) 0.53 x10^3/uL (1.0-4.6); Lymphocytes % 7.9 % (24.0-44.0); Mean Cell Volume 96.2 fL (78-100); Mean Corpuscular Hemoglobin 31.9 pg (26-32); Mean Corpuscular Hgb Concent. 33.1 g/dL (32-36); Mean Platelet Volume 10.6 fL (7.5-11.0); Monocyte (Absolute #) 0.26 x10^3/uL (0.0-1.3); Monocytes % 3.9 % (0.0-12.0); Neutrophil % 87.7 % (36.0-66.0); Platelet Count 172 x10^3/uL (150-450); Red Blood Count 3.45 x10^6/uL (4.1-5.4); Red Cell Distribution Width 13.1 % (11.5-14.0); White Blood Count 6.7 x10^3/uL (4.0-10.5)
[2021-12-26 05:34] LABS: ALBUMIN 3.2 g/dL (3.5-5.0); ALKALINE PHOSPHATASE 53 U/L (38-126); ANION GAP 10.5 MEQ/L (5-15); BLOOD UREA NITROGEN 6 mg/dL (7-17); CHLORIDE 108 mmol/L (98-107); Carbon Dioxide 22 mmol/L (22-30); Creatinine 1 0.57 mg/dL (0.52-1.04); EST GLOMERULAR FILTRATION RATE > 60.0 ML/MIN; Glucose 122 mg/dL (74-106); Potassium 3.8 mmol/L (3.5-5.1); SGOT/AST 19 U/L (14-36); SGPT/ALT 15 U/L (0-35); SODIUM 137 mmol/L (137-145); Total Protein 5.8 g/dL (6.3-8.2)
[2021-12-26] MEDS: FLAGYL 500 MG IVPB 500 MG/100 ML BAG IV SCH (06:22)
[2021-12-26 06:46] LABS: Slide Review 1 YES
[2021-12-26] MEDS: Ativan 2 MG/1 ML VIAL IV PRN ×3 (07:43→23:43)
[2021-12-26] MEDS ORDERED: Flonase NASAL NS PRN (08:00)
[2021-12-26] MEDS: K-LYTE PO SCH ×2 (09:44→21:57)
[2021-12-26] MEDS: ENOXAPARIN SODIUM SQ SCH (09:44)
[2021-12-26] MEDS: ECOTRIN 81 MG PO SCH (09:44)
[2021-12-26] MEDS: Zocor 10MG PO SCH (09:44)
[2021-12-26] MEDS ORDERED: NON-FORMULARY ITEM (Atorvastatin Calcium [Atorvastatin Calcium] 10 MG Tablet) PO SCH (10:00)
[2021-12-26] MEDS: TYLENOL 325 MG PO PRN (10:13)
[2021-12-26] MEDS ORDERED: HYDROCODONE-ACETAMIN 10-325 MG PO PRN (11:02)
--- NOTE | 2021-12-26 11:46 | PCM.HP ---
History of Present Illness - Chief Complaint Chief Complaint: diverticulitis History of Present Illness: is a 71 year old female pt of mine with PMHx colitis (recent hospital admission) who was admitted through ER with colitis (r/o c. diff) and diverticulitis. She has chronic issues with loose stools and sees GI in [place]. Started having increased stools 4d ago and they kept getting thinner and thinner. That night and the next day there was bright red blood mixed in. She had some temporary reprieve with taking immodium as directed by GI. Her abd pain became 9/10, in LLQ. No fever, no Vomiting, Did have cold sweats and nausea. In ER, CT showed colitis, diverticulitis, with new thickening and additional inflammation. WBC 6.7. Was started on flagyl, but procalcitonin is normal so that has been stopped. Was given 1 dose IV steroids of 80mg, which will be continued at 40mg IV q8h. Came to ER via private car. Was given IV fluids and has had no stools since then. Currently her pain is 0/10 unless palpated. She has been extremely anxious; has been up crying much of the night and now has a headache. Does feel better with ativan. She notes that GI took her off of her alosetron. - Review of Systems Constitutional: Other (cold sweats) Abdominal/Gastrointestinal: Abdominal Pain, Nausea, Diarrhea, Appetite Changes Psychological: Anxiety All Other Systems: Reviewed and Negative Medications & Allergies Home Medications: Home Medication List Alosetron HCl 0.5 mg PO DAILY 02/21/21 [History Confirmed 12/25/21] Aspirin EC 81 mg [Ecotrin 81 mg] 81 mg PO DAILY 02/21/21 [History Confirmed 12/25/21] Atorvastatin Calcium 10 mg PO DAILY 02/21/21 [History Confirmed 12/25/21] Colestipol HCl [Colestid] 1 gm PO BID 02/21/21 [History Confirmed 12/25/21] Fluticasone Propionate [Flonase NASAL] 1 gm NS UD PRN 02/21/21 [History Confirmed 12/25/21] Midodrine HCl 10 mg PO TID 02/21/21 [History Confirmed 12/25/21] Hyoscyamine Sulfate 1 - 2 tab PO QID PRN 12/07/21 [History Confirmed 12/25/21] PANTOPRAZOLE 40 mg Tablet [Protonix 40MG Tablet] 40 mg PO HS 12/07/21 [History Confirmed 12/25/21] Potassium Bicarbonate [K-Lyte ] 25 meq PO BID #8 unit 12/12/21 [Rx Confirmed 12/25/21] Allergies/Adverse Reactions: Allergies Allergy/AdvReac Type Severity Reaction Status Date / Time Penicillins Allergy Verified 12/25/21 10:25 - Past Medical History Past Medical History: Yes Neurological History: Migraines ENT History: No Pertinent History Cardiac History: Other Respiratory History: No Pertinent History Endocrine Medical History: No Pertinent History Musculoskelatal History: Arthritis GI Medical History: Irritable Bowel History: No Pertinent History Pyscho-Social History: No Pertinent History Reproductive Disorders: No Pertinent History Comment: orthostatic hypotension - Female History Are you now?: No - Past Surgical History Past Surgical History: Yes Neuro Surgical History: No Pertinent History Cardiac History: No Pertinent History Respiratory Surgery: No Pertinent History GI Surgical History: Cholecystectomy Genitourinary Surgical Hx: No Pertinent History Musculskeletal Surgical Hx: No Pertinent History Female Surgical History: Hysterectomy Other Surgical History: breast reduction and lift, foot - Social History Smoking Status: Never smoker Exposure to second hand smoke: No Alcohol: None Drug Use: none Significant Family History: no pertinent family hx - Physical Exam Vital Signs: Vital Signs - 24 hr Temp Pulse Resp BP BP Pulse Ox 12/26/21 08:00 16 12/26/21 07:32 97.7 F 87 16 129/70 95 12/26/21 04:00 97.1 F 89 18 110/56 96 12/26/21 00:00 16 12/25/21 23:45 97.1 F 83 16 112/57 96 12/25/21 20:34 76 16 107/54 12/25/21 20:00 98.3 F 76 16 107/54 96 12/25/21 16:00 97.7 F 81 16 103/53 97 12/25/21 12:53 99 12/25/21 12:11 74 17 135/114 97 General Appearance: no apparent distress, anxiety Neurologic Exam: oriented x 3, cooperative Eye Exam: eyes nml inspection Ears, Nose, Throat Exam: moist mucous membranes Neck Exam: normal inspection, non-tender, No lymphadenopathy, No thyromegaly Respiratory Exam: normal breath sounds, lungs clear, No crackles/rales, No rhonchi, No wheezing Cardiovascular Exam: regular rate/rhythm, normal heart sounds, No murmur Gastrointestinal/Abdomen Exam: soft, normal bowel sounds, tenderness (generalized, but worse in LLQ), No distention, No mass, No guarding, No rebound Extremity Exam: normal inspection, No pedal edema, No swelling Skin Exam: normal color, warm, dry, No rash Results - Labs Lab/Micro Results: Lab Results-Last 24 Hours 12/25/21 12/25/21 12/26/21 Range/Units 10:40 12:12 05:00 WBC (4.0-10.5) x10^3/uL RBC (4.1-5.4) x10^6/uL Hgb (12.0-16.0) g/dL Hct (35-47) % MCV (78-100) fL MCH (26-32) pg MCHC (32-36) g/dL RDW (11.5-14.0) % Plt Count (150-450) x10^3/uL MPV (7.5-11.0) fL Gran % (36.0-66.0) % Immature Gran % (Auto) (0.00-0.4) % Nucleat RBC Rel Count (0.00-0.1) % Eos # (Auto) (0-0.5) x10^3/uL Immature Gran # (Auto) (0.00-0.03) x10^3u/L Absolute Lymphs (auto) (1.0-4.6) x10^3/uL Absolute Monos (auto) (0.0-1.3) x10^3/uL Absolute Nucleated RBC (0.00-0.01) x10^3u/L Lymphocytes % (24.0-44.0) % Monocytes % (0.0-12.0) % Eosinophils % (0.00-5.0) % Basophils % (0.0-0.4) % Absolute Granulocytes (1.4-6.9) x10^3/uL Basophils # (0-0.4) x10^3/uL Sodium (137-145) mmol/L Potassium (3.5-5.1) mmol/L Chloride (98-107) mmol/L Carbon Dioxide (22-30) mmol/L Anion Gap (5-15) MEQ/L BUN (7-17) mg/dL Creatinine (0.52-1.04) mg/dL Estimated GFR ML/MIN Glucose (74-106) mg/dL Calcium (8.4-10.2) mg/dL Total Bilirubin (0.2-1.3) mg/dL AST (14-36) U/L ALT (0-35) U/L Alkaline Phosphatase (38-126) U/L Serum Total Protein (6.3-8.2) g/dL Albumin (3.5-5.0) g/dL Procalcitonin 0.058 (0.030-0.080) ng/mL Urinalys Dipstick Clnc MAIN LAB Urine Color YELLOW (YELLOW) Urine Appearance CLEAR (CLEAR) Urine pH 7.5 (5-6) Ur Specific [place] 1.010 (1.005-1.025) POC Urine Protein Conf NEGATIVE (Negative) Urine Ketones NEGATIVE (NEGATIVE) Urine Nitrite NEGATIVE (NEGATIVE) Urine Bilirubin NEGATIVE (NEGATIVE) Urine Urobilinogen 0.2 (0-1) mg/dL Urine Leukocytes NEGATIVE (NEGATIVE) Urine WBC (Auto) 0-2 (0-5) /HPF Urine RBC (Auto) 3-5 A (0-2) /HPF U Epithel Cells (Auto) NONE (FEW) /HPF Urine Bacteria (Auto) NONE (NEGATIVE) /HPF Urine RBC MODERATE A (0-5) Sebas/ul Ur Culture Indicated? NO Urine Glucose NEGATIVE (NEGATIVE) mg/dL Influenza Type A Ag NEGATIVE (NEGATIVE) Influenza Type B Ag NEGATIVE (NEGATIVE) RSV (PCR) NEGATIVE (Negative) SARS-CoV-2 (PCR) NEGATIVE (NEGATIVE) Slides for Path Review 12/26/21 12/26/21 Range/Units 05:05 05:05 WBC 6.7 (4.0-10.5) x10^3/uL RBC 3.45 L (4.1-5.4) x10^6/uL Hgb 11.0 L (12.0-16.0) g/dL Hct 33.2 L (35-47) % MCV 96.2 (78-100) fL MCH 31.9 (26-32) pg MCHC 33.1 (32-36) g/dL RDW 13.1 (11.5-14.0) % Plt Count 172 (150-450) x10^3/uL MPV 10.6 (7.5-11.0) fL Gran % 87.7 H (36.0-66.0) % Immature Gran % (Auto) 0.4 (0.00-0.4) % Nucleat RBC Rel Count 0.0 (0.00-0.1) % Eos # (Auto) 0 (0-0.5) x10^3/uL Immature Gran # (Auto) 0.03 (0.00-0.03) x10^3u/L Absolute Lymphs (auto) 0.53 L (1.0-4.6) x10^3/uL Absolute Monos (auto) 0.26 (0.0-1.3) x10^3/uL Absolute Nucleated RBC 0.00 (0.00-0.01) x10^3u/L Lymphocytes % 7.9 L (24.0-44.0) % Monocytes % 3.9 (0.0-12.0) % Eosinophils % 0.0 (0.00-5.0) % Basophils % 0.1 (0.0-0.4) % Absolute Granulocytes 5.90 (1.4-6.9) x10^3/uL Basophils # 0.01 (0-0.4) x10^3/uL Sodium 137 (137-145) mmol/L Potassium 3.8 (3.5-5.1) mmol/L Chloride 108 H (98-107) mmol/L Carbon Dioxide 22 (22-30) mmol/L Anion Gap 10.5 (5-15) MEQ/L BUN 6 L (7-17) mg/dL Creatinine 0.57 (0.52-1.04) mg/dL Estimated GFR > 60.0 ML/MIN Glucose 122 H (74-106) mg/dL Calcium 8.0 L (8.4-10.2) mg/dL Total Bilirubin 0.80 (0.2-1.3) mg/dL AST 19 (14-36) U/L ALT 15 (0-35) U/L Alkaline Phosphatase 53 (38-126) U/L Serum Total Protein 5.8 L (6.3-8.2) g/dL Albumin 3.2 L (3.5-5.0) g/dL Procalcitonin (0.030-0.080) ng/mL Urinalys Dipstick Clnc Urine Color (YELLOW) Urine Appearance (CLEAR) Urine pH (5-6) Ur Specific [place] (1.005-1.025) POC Urine Protein Conf (Negative) Urine Ketones (NEGATIVE) Urine Nitrite (NEGATIVE) Urine Bilirubin (NEGATIVE) Urine Urobilinogen (0-1) mg/dL Urine Leukocytes (NEGATIVE) Urine WBC (Auto) (0-5) /HPF Urine RBC (Auto) (0-2) /HPF U Epithel Cells (Auto) (FEW) /HPF Urine Bacteria (Auto) (NEGATIVE) /HPF Urine RBC (0-5) Sebas/ul Ur Culture Indicated? Urine Glucose (NEGATIVE) mg/dL Influenza Type A Ag (NEGATIVE) Influenza Type B Ag (NEGATIVE) RSV (PCR) (Negative) SARS-CoV-2 (PCR) (NEGATIVE) Slides for Path Review YES Microbiology 12/26/21 Unknown C. difficile Toxin B Result 1 - Final Stool Not Reportable C. difficile Toxin B Result 2 - Final Not Reportable C. difficile Toxin B Result 3 - Final Not Reportable C. difficile Toxin B Result 4 - Final Not Reportable Antimicrobic Susceptibility - Final Not Reportable - Radiology Impressions Radiology Exams & Impressions: Radiology Procedures Category Date Time Status ABDOMEN AND PELVIS W/0 CONTRAS [CT] Stat Exams 12/25/21 11:26 Completed Assessment/Plan (1) Colitis Current Visit: Yes Status: Acute Assessment & Plan: Treating with steroids and supportive care. Will check for C. diff if she has another stool but I suspect it will be negative. Code(s): K52.9 - NONINFECTIVE GASTROENTERITIS AND COLITIS, UNSPECIFIED (2) Diverticulitis Current Visit: Yes Status: Acute Assessment & Plan: WBC is nl and procalcitonin is neg. Code(s): K57.92 - DVTRCLI OF INTEST, PART UNSP, W/O PERF OR ABSCESS W/O BLEED (3) Anxiety Current Visit: Yes Status: Acute Code(s): F41.9 - ANXIETY DISORDER, UNSPECIFIED
[2021-12-26] MEDS: solu-MEDROL 40 MG, Sterile H2O 10 ml 1 ML IV SCH ×6 (12:06→23:43)
[2021-12-26] MEDS: Sodium Chloride 0.9% 1000 ML 1,000 ML IV SCH ×2 (12:06→21:57)
[2021-12-26] MEDS: Zofran 4 MG/2 ML VIAL IV PRN (15:21)
[2021-12-26] MEDS ORDERED: solu-MEDROL ONE (18:27)
[2021-12-26] MEDS: Protonix 40MG Tablet PO SCH (21:57)
[2021-12-27] MEDS ORDERED: solu-MEDROL ONE (06:36)
[2021-12-27] MEDS: solu-MEDROL 40 MG, Sterile H2O 10 ml 1 ML IV SCH ×8 (06:51→22:58)
[2021-12-27 07:27] LABS: Absolute Neutrophil Ct (ANC) 8.26 x10^3/uL (1.4-6.9); Basophil (Absolute #) 0.01 x10^3/uL (0-0.4); Eosinophil % 0.1 % (0.00-5.0); Eosinophil (Absolute #) 0.01 x10^3/uL (0-0.5); Hematocrit 36.2 % (35-47); Hemoglobin 11.8 g/dL (12.0-16.0); Lymphocyte (Absolute #) 0.73 x10^3/uL (1.0-4.6); Lymphocytes % 7.8 % (24.0-44.0); Mean Cell Volume 98.4 fL (78-100); Mean Corpuscular Hemoglobin 32.1 pg (26-32); Mean Corpuscular Hgb Concent. 32.6 g/dL (32-36); Mean Platelet Volume 10.7 fL (7.5-11.0); Monocyte (Absolute #) 0.22 x10^3/uL (0.0-1.3); Monocytes % 2.4 % (0.0-12.0); Neutrophil % 88.5 % (36.0-66.0); Platelet Count 210 x10^3/uL (150-450); Red Blood Count 3.68 x10^6/uL (4.1-5.4); Red Cell Distribution Width 13.3 % (11.5-14.0); White Blood Count 9.3 x10^3/uL (4.0-10.5)
[2021-12-27] MEDS: Sodium Chloride 0.9% 1000 ML 1,000 ML IV SCH ×2 (08:18→19:38)
--- NOTE | 2021-12-27 08:31 | PCM.NOTE ---
Date and Time: 12/27/21825 Subjective Assessment: She is feeling better, but still weak. Continues to have no stools. Interested in increasing her diet. - Review of Systems Constitutional: No Fever Abdominal/Gastrointestinal: Abdominal Pain (2-3/10), No Vomiting, No Diarrhea Objective Exam General Appearance: no apparent distress, anxiety Neurologic Exam: oriented x 3, cooperative Skin Exam: normal color, warm, dry, No rash Eye Exam: eyes nml inspection Ears, Nose, Throat Exam: moist mucous membranes Neck Exam: normal inspection Respiratory Exam: normal breath sounds, lungs clear, No crackles/rales, No rhonchi, No wheezing Cardiovascular Exam: regular rate/rhythm, normal heart sounds, No murmur Gastrointestinal/Abdomen Exam: soft, normal bowel sounds, tenderness (generalized, but worse in LLQ) Extremity Exam: normal inspection, No pedal edema, No swelling Back Exam: normal inspection, No rash OBJECTIVE DATA Vital Signs: Vital Signs - 24 hr Temp Pulse Resp BP Pulse Ox 12/27/21 07:15 97.7 F 90 16 129/68 98 12/27/21 04:00 97.3 F 84 17 116/58 97 12/27/21 00:00 96.9 F 84 16 111/61 97 12/26/21 20:00 96.9 F 88 17 135/61 97 12/26/21 16:00 98.1 F 79 16 127/65 98 12/26/21 12:00 16 12/26/21 11:51 98.1 F 81 16 128/60 99 Pain Assessment - Last Documented Pain Intensity 0 Pain Scale Used 0-10 Pain Scale Intake and Output: Intake & Output 12/24/21 12/25/21 12/26/21 12/27/21 11:59 11:59 11:59 11:59 Intake Total 2296 3251 Output Total 350 Balance 1946 3251 Weight 58.967 kg 58.967 kg Lab Results: Lab Results-Last 24 Hours 12/26/21 12/27/21 Range/Units 05:00 07:10 WBC 9.3 (4.0-10.5) x10^3/uL RBC 3.68 L (4.1-5.4) x10^6/uL Hgb 11.8 L (12.0-16.0) g/dL Hct 36.2 (35-47) % MCV 98.4 (78-100) fL MCH 32.1 H (26-32) pg MCHC 32.6 (32-36) g/dL RDW 13.3 (11.5-14.0) % Plt Count 210 (150-450) x10^3/uL MPV 10.7 (7.5-11.0) fL Gran % 88.5 H (36.0-66.0) % Immature Gran % (Auto) 1.1 H (0.00-0.4) % Nucleat RBC Rel Count 0.0 (0.00-0.1) % Eos # (Auto) 0.01 (0-0.5) x10^3/uL Immature Gran # (Auto) 0.10 H (0.00-0.03) x10^3u/L Absolute Lymphs (auto) 0.73 L (1.0-4.6) x10^3/uL Absolute Monos (auto) 0.22 (0.0-1.3) x10^3/uL Absolute Nucleated RBC 0.00 (0.00-0.01) x10^3u/L Lymphocytes % 7.8 L (24.0-44.0) % Monocytes % 2.4 (0.0-12.0) % Eosinophils % 0.1 (0.00-5.0) % Basophils % 0.1 (0.0-0.4) % Absolute Granulocytes 8.26 H (1.4-6.9) x10^3/uL Basophils # 0.01 (0-0.4) x10^3/uL Procalcitonin 0.058 (0.030-0.080) ng/mL Radiology Exams: Radiology Procedures Category Date Time Status ABDOMEN AND PELVIS W/0 CONTRAS [CT] Stat Exams 12/25/21 11:26 Completed Assessment/Plan (1) Colitis Current Visit: Yes Status: Acute Assessment & Plan: Improving with IV steroids. No longer on antibiotics as procalcitonin was nl yesterday. Will start advancing diet a bit (to full liquids today). If eleanor erates that well, can add in crackers and toast this afternoon. Code(s): K52.9 - NONINFECTIVE GASTROENTERITIS AND COLITIS, UNSPECIFIED (2) Diverticulitis Current Visit: Yes Status: Acute Code(s): K57.92 - DVTRCLI OF INTEST, PART UNSP, W/O PERF OR ABSCESS W/O BLEED (3) Anxiety Current Visit: Yes Status: Chronic Assessment & Plan: much better this morning. Code(s): F41.9 - ANXIETY DISORDER, UNSPECIFIED (4) Muscular deconditioning Current Visit: Yes Status: Acute Assessment & Plan: PT consult. Code(s): R29.898 - OTH SYMPTOMS AND SIGNS INVOLVING THE MUSCULOSKELETAL SYSTEM (5) Bowel incontinence Current Visit: Yes Status: Acute Qualifiers: Fecal incontinence type: unspecified Qualified Code(s): R15.9 - Full incontinence of feces Assessment & Plan: chronic issue for years. Can see PT for pelvic floor training/bowel, per Agata (will set pt up outpatient upon discharge). Code(s): R15.9 - FULL INCONTINENCE OF FECES
[2021-12-27 09:06] LABS: ANION GAP 10.3 MEQ/L (5-15); BLOOD UREA NITROGEN 7 mg/dL (7-17); CHLORIDE 109 mmol/L (98-107); Calcium 8.9 mg/dL (8.4-10.2); Carbon Dioxide 24 mmol/L (22-30); Creatinine 1 0.52 mg/dL (0.52-1.04); EST GLOMERULAR FILTRATION RATE > 60.0 ML/MIN; Glucose 124 mg/dL (74-106); Potassium 4.2 mmol/L (3.5-5.1); SODIUM 139 mmol/L (137-145)
[2021-12-27] MEDS: ENOXAPARIN SODIUM SQ SCH (10:02)
[2021-12-27] MEDS: K-LYTE PO SCH ×2 (10:02→21:33)
[2021-12-27] MEDS: Zocor 10MG PO SCH (10:02)
[2021-12-27] MEDS: ECOTRIN 81 MG PO SCH (10:02)
[2021-12-27] MEDS: Ativan 2 MG/1 ML VIAL IV PRN ×2 (10:39→14:33)
[2021-12-27] MEDS: Ativan 0.5 MG PO SCH ×2 (14:43→21:33)
[2021-12-27] MEDS: Protonix 40MG Tablet PO SCH (21:33)
[2021-12-28] MEDS: Sodium Chloride 0.9% 1000 ML 1,000 ML IV SCH ×2 (04:59→15:03)
[2021-12-28] MEDS: solu-MEDROL 40 MG, Sterile H2O 10 ml 1 ML IV SCH ×8 (06:09→23:39)
[2021-12-28 06:21] LABS: Hematocrit 34.9 % (35-47); Hemoglobin 11.5 g/dL (12.0-16.0); Mean Cell Volume 98.3 fL (78-100); Mean Corpuscular Hemoglobin 32.4 pg (26-32); Platelet Count 200 x10^3/uL (150-450); Red Blood Count 3.55 x10^6/uL (4.1-5.4); Red Cell Distribution Width 13.1 % (11.5-14.0); White Blood Count 10.7 x10^3/uL (4.0-10.5)
[2021-12-28 06:51] LABS: ANION GAP 9.5 MEQ/L (5-15); BLOOD UREA NITROGEN 12 mg/dL (7-17); CHLORIDE 107 mmol/L (98-107); Calcium 8.4 mg/dL (8.4-10.2); Carbon Dioxide 24 mmol/L (22-30); Creatinine 1 0.51 mg/dL (0.52-1.04); EST GLOMERULAR FILTRATION RATE > 60.0 ML/MIN; Glucose 130 mg/dL (74-106); Potassium 4.1 mmol/L (3.5-5.1); SODIUM 137 mmol/L (137-145)
[2021-12-28] MEDS: Zofran 4 MG/2 ML VIAL IV PRN (07:47)
--- NOTE | 2021-12-28 07:49 | PCM.NOTE ---
Date and Time: 12/28/21741 Subjective Assessment: Pt is feeling better, still weak. PT thought she should go home on outpatient PT. Still no stools. Did tolerate some crackers and toast yesterday. Did have pain last night 8-10/20, but right now feels OK. More sore in LLQ. Continues to be very anxious. - Review of Systems Constitutional: No Fever Abdominal/Gastrointestinal: No Diarrhea Objective Exam General Appearance: no apparent distress, alert Neurologic Exam: oriented x 3, cooperative Skin Exam: normal color, warm, dry, No rash Eye Exam: eyes nml inspection Ears, Nose, Throat Exam: moist mucous membranes Neck Exam: normal inspection Respiratory Exam: normal breath sounds, lungs clear, No crackles/rales, No rhonchi, No wheezing Cardiovascular Exam: regular rate/rhythm, normal heart sounds, No murmur Gastrointestinal/Abdomen Exam: soft, normal bowel sounds, tenderness (mild LLQ), No distention, No mass, No guarding, No rebound Extremity Exam: normal inspection, No swelling, No tenderness OBJECTIVE DATA Vital Signs: Vital Signs - 24 hr Temp Pulse Resp BP Pulse Ox 12/28/21 04:00 97.8 F 96 H 18 131/68 97 12/27/21 23:45 98.2 F 92 H 17 123/68 95 12/27/21 23:43 17 12/27/21 19:48 17 12/27/21 19:46 97.5 F 89 17 125/68 97 12/27/21 16:00 98.2 F 86 16 110/54 95 12/27/21 14:33 16 12/27/21 12:00 97.1 F 79 16 132/68 98 12/27/21 10:39 82 20 12/27/21 08:00 16 Pain Assessment - Last Documented Pain Intensity 0 Pain Scale Used 0-10 Pain Scale Intake and Output: Intake & Output 12/25/21 12/26/21 12/27/21 12/28/21 11:59 11:59 11:59 11:59 Intake Total 2296 3371 3502 Output Total 350 Balance 1946 3371 3502 Weight 58.967 kg 58.967 kg Lab Results: Lab Results-Last 24 Hours 12/27/21 12/28/21 12/28/21 Range/Units 07:10 06:15 06:15 WBC 10.7 H (4.0-10.5) x10^3/uL RBC 3.55 L (4.1-5.4) x10^6/uL Hgb 11.5 L (12.0-16.0) g/dL Hct 34.9 L (35-47) % MCV 98.3 (78-100) fL MCH 32.4 H (26-32) pg MCHC 33.0 (32-36) g/dL RDW 13.1 (11.5-14.0) % Plt Count 200 (150-450) x10^3/uL MPV 10.0 (7.5-11.0) fL Sodium 139 137 (137-145) mmol/L Potassium 4.2 4.1 (3.5-5.1) mmol/L Chloride 109 H 107 (98-107) mmol/L Carbon Dioxide 24 24 (22-30) mmol/L Anion Gap 10.3 9.5 (5-15) MEQ/L BUN 7 12 (7-17) mg/dL Creatinine 0.52 0.51 L (0.52-1.04) mg/dL Estimated GFR > 60.0 > 60.0 ML/MIN Glucose 124 H 130 H (74-106) mg/dL Calcium 8.9 8.4 (8.4-10.2) mg/dL Multi-Disciplinary Progress Notes: Multi-Disciplinary Progress Notes 12/27/21 14:30 (created 12/27/21 16:41) Case Management Note by Valentina Baer PATIENT HAD PT EVAL TODAY. OTPT PT THERAPY AND PELVIC FLOOR THERAPY RECOMMENDED. OTPT ORDER PLACED ON CHART FOR MD TO SIGN. Initialized on 12/27/21 16:41 - END OF NOTE Assessment/Plan (1) Colitis Current Visit: Yes Status: Acute Assessment & Plan: Improved. This is recurrent and her second hospitalization. Not on abx as her procalcitonin was neg. On IV steroids, 40mg q6h. Will wean down on that a bit today, and she will likely go home tomorrow or the next day; could have an injection of 40mg kenalog here prior to discharge then f/u with me in office next week. Code(s): K52.9 - NONINFECTIVE GASTROENTERITIS AND COLITIS, UNSPECIFIED (2) Diverticulitis Current Visit: Yes Status: Chronic Code(s): K57.92 - DVTRCLI OF INTEST, PART UNSP, W/O PERF OR ABSCESS W/O BLEED (3) Anxiety Current Visit: Yes Status: Chronic Assessment & Plan: Family member called to tell me yesterday of the family hx anxiety and at times depression. Pt has been quite anxious; start buspar today. I will go ahead and call in some ativan for her to have at home in the event she is discharged this weekend. Code(s): F41.9 - ANXIETY DISORDER, UNSPECIFIED (4) Muscular deconditioning Current Visit: Yes Status: Acute Assessment & Plan: will get PT outpatient. Code(s): R29.898 - OTH SYMPTOMS AND SIGNS INVOLVING THE MUSCULOSKELETAL SYSTEM (5) Bowel incontinence Current Visit: Yes Status: Acute Qualifiers: Fecal incontinence type: unspecified Qualified Code(s): R15.9 - Full incontinence of feces Assessment & Plan: will get pelvic floor therapy outpatient. Code(s): R15.9 - FULL INCONTINENCE OF FECES
[2021-12-28] MEDS: K-LYTE PO SCH ×2 (10:14→22:10)
[2021-12-28] MEDS: ENOXAPARIN SODIUM SQ SCH (10:15)
[2021-12-28] MEDS: ECOTRIN 81 MG PO SCH (10:15)
[2021-12-28] MEDS: Ativan 0.5 MG PO SCH ×3 (10:15→22:10)
[2021-12-28] MEDS: BUSPAR 5 MG PO SCH (10:15)
[2021-12-28] MEDS: Zocor 10MG PO SCH (10:15)
[2021-12-28] MEDS: Protonix 40MG Tablet PO SCH (22:10)
[2021-12-29] MEDS: BUSPAR 5 MG PO SCH ×3 (00:05→21:18)
[2021-12-29] MEDS: Sodium Chloride 0.9% 1000 ML 1,000 ML IV SCH ×2 (00:41→10:28)
[2021-12-29] MEDS: solu-MEDROL 40 MG, Sterile H2O 10 ml 1 ML IV SCH ×4 (05:26→13:13)
[2021-12-29] MEDS: TYLENOL 325 MG PO PRN (08:08)
[2021-12-29] MEDS: Zofran 4 MG/2 ML VIAL IV PRN (10:28)
[2021-12-29] MEDS: ECOTRIN 81 MG PO SCH (11:26)
[2021-12-29] MEDS: Zocor 10MG PO SCH (11:26)
[2021-12-29] MEDS: K-LYTE PO SCH ×2 (11:27→21:18)
[2021-12-29] MEDS: Ativan 0.5 MG PO SCH ×3 (11:27→21:18)
[2021-12-29] MEDS: ENOXAPARIN SODIUM SQ SCH (11:27)
[2021-12-29] MEDS ORDERED: PHENERGAN 25 MG PO ONE (12:45)
--- NOTE | 2021-12-29 13:16 | PCM.NOTE ---
Date and Time: 12/29/21 1310 Subjective Assessment: Patient sitting up at bedside eating small bites of a baked potatoe,poor appetite. C/O ongoing nausea,no BM x 4 days,C/O flatus,no emesis. States EGD by GI recently, still waiting for biopsy report "checking for Celiac". Is on IV fluids 100cc/hr and IV solumedrol 40mg q 6H Objective Exam General Appearance: no apparent distress (but decreased energy poking around at her baked potatoe no appetite) Neurologic Exam: alert, oriented x 3, cooperative Skin Exam: normal color, warm, dry Respiratory Exam: normal breath sounds Cardiovascular Exam: regular rate/rhythm Gastrointestinal/Abdomen Exam: tenderness (periumbilical no guarding), distention, other (hyperactive BS) Extremity Exam: normal inspection Back Exam: normal inspection OBJECTIVE DATA Vital Signs: Vital Signs - 24 hr Temp Pulse Resp BP Pulse Ox 12/29/21 12:00 19 12/29/21 11:53 97.7 F 85 18 148/76 98 12/29/21 08:00 19 12/29/21 07:01 98.4 F 88 18 143/75 97 12/29/21 04:00 97.8 F 71 18 134/66 95 12/29/21 00:00 16 12/28/21 23:32 97.5 F 80 16 131/73 97 12/28/21 20:00 97.7 F 84 18 145/67 97 12/28/21 16:00 17 12/28/21 15:00 97.7 F 88 17 134/95 96 Pain Assessment - Last Documented Pain Intensity 4 Pain Scale Used 0-10 Pain Scale Intake and Output: Intake & Output 12/27/21 12/28/21 12/29/21 12/30/21 11:59 11:59 11:59 11:59 Intake Total 3371 3742 4370 740 Balance 3371 3742 4370 740 Radiology Exams: Radiology Procedures Category Date Time Status ABDOMEN 2 VIEW Routine Exams 12/29/21 Ordered Multi-Disciplinary Progress Notes: Multi-Disciplinary Progress Notes 12/28/21 13:16 Case Management Note by Valentina Baer S/Supriya LILLY- PATIENT ALREADY HAS AN APT. WITH THEM OTPT Initialized on 12/28/21 13:16 - END OF NOTE Assessment/Plan (1) Bowel incontinence Current Visit: Yes Status: Resolved Qualifiers: Fecal incontinence type: unspecified Qualified Code(s): R15.9 - Full incontinence of feces Assessment & Plan: now constipated,no BM x ?4days Code(s): R15.9 - FULL INCONTINENCE OF FECES (2) Diverticulitis Current Visit: Yes Status: Suspected Assessment & Plan: improved,tender Left mid abd,WBC is elevated again but is on Solumedrol Code(s): K57.92 - DVTRCLI OF INTEST, PART UNSP, W/O PERF OR ABSCESS W/O BLEED (3) Anxiety Current Visit: Yes Status: Chronic Assessment & Plan: improved on meds Code(s): F41.9 - ANXIETY DISORDER, UNSPECIFIED (4) Muscular deconditioning Current Visit: Yes Status: Acute Assessment & Plan: Nurse to walk patient Code(s): R29.898 - OTH SYMPTOMS AND SIGNS INVOLVING THE MUSCULOSKELETAL SYSTEM (5) Constipation Current Visit: Yes Status: Acute Assessment & Plan: KUB - bowel gas Code(s): K59.00 - CONSTIPATION, UNSPECIFIED
[2021-12-29 14:26] LABS: Absolute Neutrophil Ct (ANC) 8.76 x10^3/uL (1.4-6.9); Basophil (Absolute #) 0.04 x10^3/uL (0-0.4); Eosinophil % 0.1 % (0.00-5.0); Eosinophil (Absolute #) 0.01 x10^3/uL (0-0.5); Hematocrit 36.3 % (35-47); Hemoglobin 12.5 g/dL (12.0-16.0); Lymphocytes % 9.1 % (24.0-44.0); Mean Cell Volume 94.3 fL (78-100); Mean Corpuscular Hemoglobin 32.5 pg (26-32); Mean Corpuscular Hgb Concent. 34.4 g/dL (32-36); Mean Platelet Volume 9.9 fL (7.5-11.0); Monocyte (Absolute #) 0.63 x10^3/uL (0.0-1.3); Monocytes % 5.8 % (0.0-12.0); Neutrophil % 80.1 % (36.0-66.0); Platelet Count 219 x10^3/uL (150-450); Red Blood Count 3.85 x10^6/uL (4.1-5.4); Red Cell Distribution Width 12.9 % (11.5-14.0); White Blood Count 10.9 x10^3/uL (4.0-10.5)
[2021-12-29] MEDS: Mylicon 80MG PO PRN (14:42)
[2021-12-29 14:46] LABS: ALBUMIN 3.3 g/dL (3.5-5.0); ALKALINE PHOSPHATASE 45 U/L (38-126); ANION GAP 12.6 MEQ/L (5-15); BLOOD UREA NITROGEN 18 mg/dL (7-17); CHLORIDE 103 mmol/L (98-107); Calcium 8.7 mg/dL (8.4-10.2); Carbon Dioxide 21 mmol/L (22-30); Creatinine 1 0.53 mg/dL (0.52-1.04); EST GLOMERULAR FILTRATION RATE > 60.0 ML/MIN; Glucose 197 mg/dL (74-106); Potassium 4.4 mmol/L (3.5-5.1); SGOT/AST 65 U/L (14-36); SODIUM 133 mmol/L (137-145); Total Protein 5.6 g/dL (6.3-8.2)
[2021-12-29 14:53] LABS: SGPT/ALT 57 U/L (0-35)
--- NOTE | 2021-12-29 19:34 | XRAY ---
Indication: Left lower quadrant pain. CT proven sigmoid diverticulitis. Comparison: CT abdomen/pelvis December 25, 2021. 2 view abdomen nonacute and nonobstructed with incidental splenic calcified granulomas and cholecystectomy/pelvic surgical clips. Solid organs unremarkable. Osseous structures intact with minimal lumbar degenerative spondylosis Comment: Preliminary interpretation made by [facility]. No critical discrepancy.
[2021-12-29] MEDS: solu-MEDROL IV SCH (21:18)
[2021-12-29] MEDS: Protonix 40MG Tablet PO SCH (21:18)
[2021-12-30] MEDS: Mylicon 80MG PO PRN ×2 (06:17→10:07)
[2021-12-30] MEDS: BUSPAR 5 MG PO SCH (10:07)
[2021-12-30] MEDS: K-LYTE PO SCH (10:07)
[2021-12-30] MEDS: Ativan 0.5 MG PO SCH (10:07)
[2021-12-30] MEDS: ECOTRIN 81 MG PO SCH (10:07)
[2021-12-30] MEDS: Zocor 10MG PO SCH (10:07)
[2021-12-30] MEDS: ENOXAPARIN SODIUM SQ SCH (10:08)
[2021-12-30] MEDS: solu-MEDROL IV SCH (10:08)
[2021-12-30] MEDS: Zofran 4 MG/2 ML VIAL IV PRN (10:08)
[2021-12-30 11:30] LABS: 027 TOX PROD PRESUMPTIVE NEGATIVE (NEGATIVE)
[2021-12-30 11:52] LABS: TOXIGENIC C. DIFF ORG POSITIVE (NEGATIVE)
[2021-12-30 11:56] VITALS: BP 129/64; PULSE 84; O2SAT 96
--- NOTE | 2021-12-30 11:56 | PCM.DS ---
Discharge Summary Date of Admission: 12/26/21 11:41 Date of Discharge: 12/30/21 Admitting Physician: SAY RENTERIA Primary Care Provider: SAY RENTERIA Allergies Allergies Penicillins Allergy (Verified 12/25/21 10:25) Hospital Summary - Hospital Course Hospital Course: Patient is a 71 yr old female with chronic IBS/colitis followed by GI Laly Patton [employer] and PCP Dr Read. Patient was admitted with diarrhea,CT showed colitis .She then had constipation and no stool obtained until yesterday which is positive for C.Diff.Will discharge patient on oral Vancomycin and Florastor. Also advise bland diet avoiding dairy and gluten. - Vitals & Intake/Output Vital Signs: Vital Signs Temperature 97 F 12/30/21 08:00 Pulse Rate 77 12/30/21 08:00 Respiratory Rate 19 12/30/21 08:00 Blood Pressure 148/68 12/30/21 08:00 O2 Sat by Pulse Oximetry 95 12/30/21 08:00 Intake & Output: Intake & Output 12/27/21 12/28/21 12/29/21 12/30/21 11:59 11:59 11:59 11:59 Intake Total 3371 3742 4370 1850 Balance 3371 3742 4370 1850 - Lab Result Diagrams: 12/29/21 14:22 12/29/21 14:22 Lab Results-Last 24 Hrs: Lab Results-Last 24 Hours 12/29/21 12/29/21 Range/Units 14:22 14:22 WBC 10.9 H (4.0-10.5) x10^3/uL RBC 3.85 L (4.1-5.4) x10^6/uL Hgb 12.5 (12.0-16.0) g/dL Hct 36.3 (35-47) % MCV 94.3 (78-100) fL MCH 32.5 H (26-32) pg MCHC 34.4 (32-36) g/dL RDW 12.9 (11.5-14.0) % Plt Count 219 (150-450) x10^3/uL MPV 9.9 (7.5-11.0) fL Gran % 80.1 H (36.0-66.0) % Immature Gran % (Auto) 4.5 H (0.00-0.4) % Nucleat RBC Rel Count 0.2 H (0.00-0.1) % Eos # (Auto) 0.01 (0-0.5) x10^3/uL Immature Gran # (Auto) 0.49 H (0.00-0.03) x10^3u/L Absolute Lymphs (auto) 1.00 (1.0-4.6) x10^3/uL Absolute Monos (auto) 0.63 (0.0-1.3) x10^3/uL Absolute Nucleated RBC 0.02 H (0.00-0.01) x10^3u/L Lymphocytes % 9.1 L (24.0-44.0) % Monocytes % 5.8 (0.0-12.0) % Eosinophils % 0.1 (0.00-5.0) % Basophils % 0.4 (0.0-0.4) % Absolute Granulocytes 8.76 H (1.4-6.9) x10^3/uL Basophils # 0.04 (0-0.4) x10^3/uL Sodium 133 L (137-145) mmol/L Potassium 4.4 (3.5-5.1) mmol/L Chloride 103 (98-107) mmol/L Carbon Dioxide 21 L (22-30) mmol/L Anion Gap 12.6 (5-15) MEQ/L BUN 18 H (7-17) mg/dL Creatinine 0.53 (0.52-1.04) mg/dL Estimated GFR > 60.0 ML/MIN Glucose 197 H (74-106) mg/dL Calcium 8.7 (8.4-10.2) mg/dL Total Bilirubin 0.50 (0.2-1.3) mg/dL AST 65 H (14-36) U/L ALT 57 H (0-35) U/L Alkaline Phosphatase 45 (38-126) U/L Serum Total Protein 5.6 L (6.3-8.2) g/dL Albumin 3.3 L (3.5-5.0) g/dL - Radiology Exams Ordered Rad Exams-Entire Visit: Radiology Procedures Category Date Time Status ABDOMEN 2 VIEW Routine Exams 12/29/21 13:19 Completed - Procedures and Test Procedures and Tests throughout Hospitalization: Therapy Orders & Screens 12/27/21 08:32 PT Eval & Treat ( Order) ONCE Reason for Eval:: muscular deconditioning due to acute illness Diagnosis: diverticulitis Discharge Exam General Appearance: no apparent distress Neurologic Exam: alert, oriented x 3, cooperative, normal mood/affect Neck Exam: normal inspection Respiratory Exam: normal breath sounds Cardiovascular Exam: regular rate/rhythm Gastrointestinal/Abdomen Exam: soft, normal bowel sounds, tenderness (left upper- mid abdomen,no guarding) Pelvic Exam: deferred Back Exam: normal inspection Extremity Exam: normal inspection Final Diagnosis/Problem List - Final Discharge Diagnosis/Problem (1) Bowel incontinence Current Visit: Yes Status: Resolved Code(s): R15.9 - FULL INCONTINENCE OF FECES (2) Clostridioides difficile infection Current Visit: Yes Status: Acute Assessment & Plan: Rx Vancomycin 125mg qid x 10 days plus Rx Florastor Code(s): A49.8 - OTHER BACTERIAL INFECTIONS OF UNSPECIFIED SITE (3) Diverticulitis Current Visit: Yes Status: Suspected Code(s): K57.92 - DVTRCLI OF INTEST, PART UNSP, W/O PERF OR ABSCESS W/O BLEED (4) Anxiety Current Visit: Yes Status: Chronic Code(s): F41.9 - ANXIETY DISORDER, UNSPECIFIED (5) Muscular deconditioning Current Visit: Yes Status: Acute Code(s): R29.898 - OTH SYMPTOMS AND SIGNS INVOLVING THE MUSCULOSKELETAL SYSTEM (6) Constipation Current Visit: Yes Status: Resolved Code(s): K59.00 - CONSTIPATION, UNSPECIFIED - Discharge Disposition: Home, Self-Care Condition: Stable Prescriptions: New Vancomycin HCl [Vancomycin HCl Capsule] 125 mg PO QID 10 Days #40 cap Prednisone 10 mg [Deltasone 10 mg] 10 mg PO DAILY #10 tablet Saccharomyces Boulardii [Florastor] 250 mg PO BID #20 cap Continue Aspirin EC 81 mg [Ecotrin 81 mg] 81 mg PO DAILY Fluticasone Propionate [Flonase NASAL] 1 gm NS UD PRN PRN Reason: Allergies Midodrine HCl 10 mg PO TID Colestipol HCl [Colestid] 1 gm PO BID Atorvastatin Calcium 10 mg PO DAILY PANTOPRAZOLE 40 mg Tablet [Protonix 40MG Tablet] 40 mg PO HS Hyoscyamine Sulfate 1 - 2 tab PO QID PRN PRN Reason: Diarrhea Potassium Bicarbonate [K-Lyte ] 25 meq PO BID #8 unit Discontinued Alosetron HCl 0.5 mg PO DAILY Outpatient Orders: Physical Therapy Eval & Treat Facility: [facility], Location: PHYSICAL THERAPY Instructions: Diverticulitis (DC), Clostridioides difficile Additional Instructions: FOLLOW UP WITH PHYSICAL THERAPY SCHEDULED Follow up with: SAY RENTERIA [Primary Care Provider] - 01/01/22 9:00 am Forms: Discharge Instructions
[2021-12-30] MEDS ORDERED: FLAGYL 500 MG IVPB 500 MG/100 ML BAG IV ONE (13:00)
== END 2021-12-30 13:59 | disposition home or self-care (01) | DRG 392 ==
LOC: ED 10:14 → MED SURG 13:14 → OBSVTOIN 12-26 11:41
PROVIDERS: ADMIT Family Medicine; ATTEND Family Medicine
DX: R15.9 Full incontinence of feces (principal); K57.92 Diverticulitis of intestine, part unspecified, without perforation or abscess without bleeding; A49.8 Other bacterial infections of unspecified site; F41.9 Anxiety disorder, unspecified; R29.898 Other symptoms and signs involving the musculoskeletal system; K59.00 Constipation, unspecified; K52.9 Noninfective gastroenteritis and colitis, unspecified; Z79.899 Other long term (current) drug therapy; Z20.828 Contact with and (suspected) exposure to other viral communicable diseases
CPT/HCPCS: 0241U; 36000; 36415; 74021; 74176; 80048; 80053; 81015; 82150; 83605; 83690; 84145; 85025; 85027; 87493; 96360; 96365; 96374; 96375; 97110; 97161; 97530; 99285; G0378; J1170; J1650; J2060; J2405; J2920; J2930; A9270-GY

== ENCOUNTER 2023-12-24 13:54 | Emergency (ER) | payer MEDICARE ==
--- NOTE | 2023-12-24 13:57 | ERPHSYRPT ---
- History of Present Illness Time Seen by Provider: 12/24/23 13:57 Source: patient, family Exam Limitations: no limitations Physician History: This is a 73-year-old white female patient who arrives by private vehicle secondary to a fall hitting the back of her head. There is no loss of consciousness. She does have some neck pain and headache. She is concerned because she had a similar fall in June 2023 where she had lost consciousness and had been diagnosed with a concussion. She does take a full aspirin a day but no other anticoagulation therapy. Patient was concerned because of the persistent headache and neck pain as well as not wanting to go to sleep without having a CAT scan performed. Patient has a history of orthostatic hypotension, irritable bowel syndrome, osteoarthritis and hyperlipidemia Occurred: just prior to arrival Reason for Fall: tripped Injuries/Pain Location: head, neck Loss of Consciousness: no loss of consciousness Quality: aching Severity of Pain-Max: mild Severity of Pain-Current: mild Modifying Factors: Improves With: movement Associated Symptoms (Fall): headache, neck pain Allergies/Adverse Reactions: Penicillins Allergy (Verified 12/24/23 14:00) Home Medications: Atorvastatin Calcium 10 mg PO DAILY 02/21/21 [History] Midodrine HCl 10 mg PO TID 02/21/21 [History] Hyoscyamine Sulfate 1 - 2 tab PO QID PRN 12/07/21 [History] PANTOPRAZOLE 40 mg Tablet [Protonix 40MG Tablet] 40 mg PO HS 12/07/21 [History] Acetaminophen [Tylenol Arthritis] 2 tab PO HS 12/24/23 [History] Aspirin EC 325 mg [Ecotrin 325 MG] 325 mg PO HS 12/24/23 [History] Bifidobacterium Infantis [Align] 2 tab PO DAILY 12/24/23 [History] Estrogens,Conjugated [Premarin] 0.625 mg PO UD 12/24/23 [History] Famotidine 20 mg PO HS 12/24/23 [History] Multivit-Min/Iron/Folic/Lutein [Multivitamin Women 50 Plus Tab] 1 each PO DAILY 12/24/23 [History] Ondansetron [Ondansetron Odt] 4 mg PO Q6HPRN PRN 12/24/23 [History] Sertraline HCl 25 mg PO DAILY 12/24/23 [History] Ubidecarenone [Co Q-10] 100 mg PO DAILY 12/24/23 [History] Hx Tetanus, Diphtheria Vaccination/Date Given: Yes Hx Influenza Vaccination/Date Given: Yes Hx Pneumococcal Vaccination/Date Given: Yes Travel Risk - International Travel Have you traveled outside of the country in past 3 weeks: No - Emerging Infectious Disease Are you exhibiting symptoms associated with any current EIDs: No - Review of Systems Constitutional: No Symptoms Eyes: No Symptoms Ears, Nose, & Throat: No Symptoms Respiratory: No Symptoms Cardiac: No Symptoms Abdominal/Gastrointestinal: No Symptoms Genitourinary Symptoms: No Symptoms Musculoskeletal: Neck Pain Skin: No Symptoms Neurological: Headache Psychological: No Symptoms Endocrine: No Symptoms Hematologic/Lymphatic: No Symptoms Immunological/Allergic: No Symptoms All Other Systems: Reviewed and Negative - Past Medical History Pertinent Past Medical History: Yes Neurological History: No Pertinent History ENT History: No Pertinent History Cardiac History: Other Respiratory History: Sleep Apnea Endocrine Medical History: No Pertinent History Musculoskeletal History: Osteoarthritis, Other GI Medical History: Irritable Bowel History: No Pertinent History Psycho-Social History: No Pertinent History Female Reproductive Disorders: No Pertinent History Other Medical History: ORTHOSTATIC HYPOTENSION, TMJ DYSFUNCTION, LBP, OSTEOPENIA - Past Surgical History Past Surgical History: Yes Neuro Surgical History: No Pertinent History Cardiac: No Pertinent History Respiratory: No Pertinent History Gastrointestinal: Cholecystectomy Genitourinary: No Pertinent History Musculoskeletal: No Pertinent History Female Surgical History: Hysterectomy Other Surgical History: breast reduction and lift, foot Significant Family History: no pertinent family hx - Social History Smoking Status: Never smoker Exposure to second hand smoke: No Drug Use: none Patient Lives Alone: No - Nursing Vital Signs Nursing Vital Signs: Initial Vital Signs Pulse Rate 74 12/24/23 14:02 Blood Pressure 127/77 12/24/23 14:02 O2 Sat by Pulse Oximetry 96 12/24/23 14:02 Pain Scale Pain Intensity 8 - [place] Coma Score Best Eye Response ([place]): (4) open spontaneously Best Verbal Response ([place]): (5) oriented Best Motor Response ([place]): (6) obeys commands [place] Total: 15 - Physical Exam General Appearance: no apparent distress, alert, anxiety, thin Head Injury: no evidence of injury, swelling (Right posterior scalp subcutaneous hematoma) Eye Exam: PERRL/EOMI, eyes nml inspection ENT Exam: airway nml, nml ext.inspection Neck Exam: supple, trachea midline, full range of motion, normal alignment Respiratory/Chest Exam: No chest tenderness, No respiratory distress Gastrointestinal Exam: No tenderness Rectal Exam: not done Back Exam: normal inspection, normal range of motion, No CVA tenderness, No vertebral tenderness Extremity Exam: normal inspection, normal range of motion, pelvis stable Neurologic Exam: alert, oriented x 3, cooperative, bomb squad officer II-XII nml as tested, nml cerebellar function, nml station & gait, sensation nml Skin Exam: normal color, warm, dry SpO2 Interpretation: normal O2 Delivery: Room Air - Course Nursing assessment & vital signs reviewed: Yes Ordered Tests: Active Orders 24 hr Category Date Time Status CERVICAL SPINE WO CONTRAST [CT] Stat Exams 12/24/23 14:19 Completed HEAD WITHOUT CONTRAST [CT] Stat Exams 12/24/23 14:19 Completed - Progress Progress: unchanged Progress Note: 12/24/23 15:28 My medical decision making and the assignment of low complexity to this patient's medical issue today is based on review of the patient's past medical history, review the patient's medication list, reviewed patient drug allergy list, history present illness and physical findings on examination. The workup in this patient includes CT scan of the head and CT scan of the cervical spine both without contrast. Differential diagnosis includes but is not limited to acute intracranial abnormality, subcutaneous scalp hematoma, acute fracture and/or subluxation of cervical spine The CT scan of the head without contrast was interpreted by the radiologist and I reviewed the impression. The impression states new right posterior scalp hematoma. Remaining CT scan of the head without contrast exam is normal. CT scan of the cervical spine without contrast was interpreted by the radiologist and I reviewed the impression. The impression states negative for fracture or subluxation. There is stable, multilevel degenerative changes present. Counseled pt/family regarding: diagnosis, need for follow-up, rad results Medical Desision Making - Diagnostic Testing Diagnostic test were ordered, analyzed, and reviewed by me: Yes Radiological Interpretation: Reviewed by me, Teleradiologist Report - Risk of complications Low Risk: Low risk of morbidity from additional dx testing or treatment - Departure Departure Disposition: Home Clinical Impression: Fall with no significant injury, Scalp hematoma Condition: Stable Critical Care Time: No Referrals: DELFINA BURTON DO [Primary Care Provider] - Follow up/PCP as directed Additional Instructions: Ice pack to tender swollen area 3 times a day for the next 2 to 3 days. Use Tylenol for pain control. Call your primary care provider tomorrow, 12/25/2023 to make arrangements to follow-up with your primary care provider the next 3 to 5 days especially if symptoms of pain persist. Take your other medications as prescribed.
[2023-12-24 14:17] VITALS: RESP 18; TEMP 96.6
--- NOTE | 2023-12-24 15:10 | XRAY ---
Indication: Status post fall. Multiple contiguous axial images obtained through the head without contrast. Comparison: June 30, 2023 New small right posterior parietal/occipital scalp hematoma near the vertex. Otherwise normal appearing brain parenchyma, ventricles, and bony calvarium. Visualized paranasal sinuses and mastoid air cells are clear. Impression: New right posterior scalp hematoma. Remaining CT head without contrast exam continues to be normal.
--- NOTE | 2023-12-24 15:12 | XRAY ---
Indication: Status post fall. Multiple contiguous axial images obtained through the cervical spine. Sagittal and coronal reformatted images obtained. Comparison: None Axial images again negative for acute fracture, suspicious bony lesions, or spinal canal stenosis. Stable minimal C4-C7 degenerative endplate spurring and minimal degenerative vacuum disc phenomena. Also stable minimal left C3-C4 degenerative facet arthropathy. Sagittal and coronal reformatted images again demonstrates normal alignment with mild C4-C7 disc space narrowing. No acute compression fracture, subluxation, or jumped facet. Normal appearing craniocervical junction. Visualized noncontrasted soft tissues including lung apices remain unremarkable. Impression: 1. Continued negative acute fracture/subluxation. 2. Stable multilevel degenerative changes.
[2023-12-24 15:15] VITALS: PULSE 72
[2023-12-24 15:34] VITALS: BP 136/68; O2SAT 96
== END 2023-12-24 15:43 | disposition home or self-care (01) ==
LOC: ED 13:54
DX: S00.03XA Contusion of scalp, initial encounter (principal); W19.XXXA Unspecified fall, initial encounter; R51.9 Headache, unspecified; M54.2 Cervicalgia; Z79.82 Long term (current) use of aspirin; Z79.899 Other long term (current) drug therapy
CPT/HCPCS: 70450; 72125; 99283; 99284

== ENCOUNTER 2024-02-13 10:32 | Emergency (ER) | payer MEDICARE ==
[2024-02-13 10:38] VITALS: TEMP 97.3
--- NOTE | 2024-02-13 10:39 | ERPHSYRPT ---
- History of Present Illness Time Seen by Provider: 02/13/24 10:39 Source: patient, family Exam Limitations: no limitations Patient Subjective Stated Complaint: PT states "I have been fighting bronchitis for a month. I have been on doxy for two rounds, two rounds of steroids and I just cannot breath." Triage Nursing Assessment: Pt presented alert and oriented X 3, skin pwd. Pt ambulates with an upright steady gait, able to speak in full sentences. PT gets short of breath when speaking. Physician History: This is a 73-year-old white female patient of Dr. Burton who arrives by private vehicle accompanied by her spouse secondary to symptoms of cough and shortness of breath. Patient states she has been treated for bronchitis for over a month. She just cannot get her breath. Her room air oxygen saturation level is 98%. She has had 2 rounds of doxycycline and 2 rounds of steroids. In addition, she has been seen by her primary care provider's office and urgent care on at least 2 occasions. She has had injectable antibiotics and injectable steroids as well. Prior to a month ago she has never had anything like this before. She has a history of bronchitis but it had been typically mild and short lasting. Patient denies chest pain. She denies fevers. Patient has no bleeding or clotting disorders. Patient has no documented coronary artery disease. The patient has not had any viral swabs obtained per her report. Patient has a history of hyperlipidemia, gastroesophageal reflux disease and irritable bowel syndrome Timing/Duration: worse, other (Symptoms for over a month) Severity of Dyspnea-Max: moderate Severity of Dyspnea-Current: moderate Possible Cause: no prior episodes Modifying Factors: Improves With: deep breath Associated Symptoms: anxiety, No chest pain/discomfort Allergies/Adverse Reactions: Penicillins Allergy (Verified 12/24/23 14:00) Home Medications: Atorvastatin Calcium 10 mg PO DAILY 02/21/21 [History] Midodrine HCl 10 mg PO TID 02/21/21 [History] Hyoscyamine Sulfate 1 - 2 tab PO QID PRN 12/07/21 [History] PANTOPRAZOLE 40 mg Tablet [Protonix 40MG Tablet] 40 mg PO HS 12/07/21 [History] Aspirin EC 325 mg [Ecotrin 325 MG] 81 mg PO HS 12/24/23 [History] Bifidobacterium Infantis [Align] 2 tab PO DAILY 12/24/23 [History] Estrogens,Conjugated [Premarin] 0.625 mg PO UD 12/24/23 [History] Multivit-Min/Iron/Folic/Lutein [Multivitamin Women 50 Plus Tab] 1 each PO DAILY 12/24/23 [History] Ondansetron [Ondansetron Odt] 4 mg PO Q6HPRN PRN 12/24/23 [History] Ubidecarenone [Co Q-10] 100 mg PO DAILY 12/24/23 [History] Hx Tetanus, Diphtheria Vaccination/Date Given: Yes Hx Influenza Vaccination/Date Given: Yes Hx Pneumococcal Vaccination/Date Given: Yes Immunizations Up to Date: No Travel Risk - International Travel Have you traveled outside of the country in past 3 weeks: No - Emerging Infectious Disease Are you exhibiting symptoms associated with any current EIDs: Yes Symptoms: Cough: New Onset, Shortness of Breath - Review of Systems Constitutional: No Symptoms Eyes: No Symptoms Ears, Nose, & Throat: No Symptoms Respiratory: Cough, Dyspnea Cardiac: No Symptoms Abdominal/Gastrointestinal: No Symptoms Genitourinary Symptoms: No Symptoms Musculoskeletal: No Symptoms Skin: No Symptoms Neurological: No Symptoms Endocrine: No Symptoms Hematologic/Lymphatic: No Symptoms Immunological/Allergic: No Symptoms All Other Systems: Reviewed and Negative - Past Medical History Pertinent Past Medical History: Yes Neurological History: No Pertinent History ENT History: No Pertinent History Cardiac History: Other Respiratory History: Sleep Apnea Endocrine Medical History: No Pertinent History Musculoskeletal History: Osteoarthritis, Other GI Medical History: Irritable Bowel History: No Pertinent History Psycho-Social History: No Pertinent History Female Reproductive Disorders: No Pertinent History Other Medical History: ORTHOSTATIC HYPOTENSION, TMJ DYSFUNCTION, LBP, OSTEOPENIA - Past Surgical History Past Surgical History: Yes Neuro Surgical History: No Pertinent History Cardiac: No Pertinent History Respiratory: No Pertinent History Gastrointestinal: Cholecystectomy Genitourinary: No Pertinent History Musculoskeletal: No Pertinent History Female Surgical History: Hysterectomy Other Surgical History: breast reduction and lift, foot Significant Family History: no pertinent family hx - Social History Smoking Status: Never smoker Exposure to second hand smoke: No Drug Use: none Patient Lives Alone: No - Social Determinants of Health Will the patient participate in the screening: Yes Do you worry about a steady place to live?: No Do you have any problems with any of the following?: No known problems In the past 12 months,have you had to go without utilities?: No Transportation Issues: No Has anyone in your support network made you feel unsafe?: No Have you or anyone in your house had to go without enough: No - Nursing Vital Signs Nursing Vital Signs: Initial Vital Signs Temperature 97.3 F 02/13/24 10:33 Pulse Rate 77 02/13/24 10:33 Respiratory Rate 22 02/13/24 10:33 Blood Pressure 158/85 02/13/24 10:33 O2 Sat by Pulse Oximetry 98 02/13/24 10:33 Pain Scale Pain Intensity 0 - Physical Exam General Appearance: mild distress, alert, anxiety, thin Eye Exam: PERRL/EOMI, eyes nml inspection Ears, Nose, Throat Exam: hearing grossly normal, normal ENT inspection, normal pharynx Neck Exam: normal inspection, non-tender, supple, full range of motion Respiratory Exam: normal breath sounds, lungs clear, airway intact, No chest tenderness, No respiratory distress Cardiovascular/Chest Exam: normal heart sounds, regular rate/rhythm, normal peripheral pulses Abdominal/Gastrointestinal Exam: soft, normal bowel sounds, No tenderness Rectal Exam: not done Extremity Exam: non-tender, normal range of motion, normal inspection, normal capillary refill, no calf tenderness, no pedal edema, pelvis stable Neurologic Exam: alert, oriented x 3, cooperative, cigarette catcher II-XII nml as tested, nml cerebellar function, nml station & gait, sensation nml Skin Exam: normal color, warm, dry Lymphatic Exam: No adenopathy SpO2 Interpretation: normal SpO2: 98 O2 Delivery: Room Air - Course Nursing assessment & vital signs reviewed: Yes EKG Interpreted by Me: RATE (78), Sinus Rhythm, Left [place] Deviation (Borderline), NORMAL INTERVALS, NORMAL QRS, Other (No acute ischemia. QTc 416) Ordered Tests: Active Orders 24 hr Category Date Time Status EKG-ER Only STAT Care 02/13/24 10:39 Active IV Insertion STAT Care 02/13/24 10:39 Active CHEST WITHOUT CONTRAST [CT] Stat Exams 02/13/24 11:52 Completed BLOOD CULTURE Stat Lab 02/13/24 11:20 Received CBC W DIFF Stat Lab 02/13/24 10:55 Completed CMP Stat Lab 02/13/24 10:55 Completed D-DIMER QUANTITATIVE Stat Lab 02/13/24 10:55 Completed Lactic Acid Stat Lab 02/13/24 10:45 Completed MAGNESIUM Stat Lab 02/13/24 10:55 Completed NT PRO BNPII Stat Lab 02/13/24 10:55 Completed PROTIME WITH INR Stat Lab 02/13/24 10:55 Completed TROPONIN Q4H Lab 02/13/24 10:55 Completed TROPONIN Q4H Lab 02/13/24 14:45 Ordered TROPONIN Q4H Lab 02/13/24 18:45 Ordered UA W/RFX UR CULTURE Stat Lab 02/13/24 11:41 Completed Lab/Rad Data: Laboratory Result Diagrams 02/13/24 10:55 02/13/24 10:55 Laboratory Results 02/13/24 02/13/24 02/13/24 Range/Units 11:41 11:04 10:55 WBC (3.98-10.04) x10^3/uL RBC (3.93-5.22) x10^6/uL Hgb (11.2-15.7) g/dL Hct (34.1-44.9) % MCV (79.4-94.8) fL MCH (25.6-32.2) pg MCHC (32.2-35.5) g/dL RDW (11.7-14.4) % Plt Count (182-369) x10^3/uL MPV (9.4-12.3) fL Gran % (34.0-71.1) % Immature Gran % (Auto) (0.001-0.429) % Nucleat RBC Rel Count (0.00-0.2) % Eos # (Auto) (0.04-0.36) x10^3/uL Immature Gran # (Auto) (0.001-0.031) x10^3u/L Absolute Lymphs (auto) (1.18-3.74) x10^3/uL Absolute Monos (auto) (0.24-0.86) x10^3/uL Absolute Nucleated RBC (0.00-0.012) x10^3u/L Lymphocytes % (19.3-51.7) % Monocytes % (4.7-12.5) % Eosinophils % (0.7-5.8) % Basophils % (0.1-1.2) % Absolute Granulocytes (1.56-6.13) x10^3/uL Basophils # (0.01-0.08) x10^3/uL PT (9.4-12.5) SECONDS INR (0.8-3.0) D-Dimer (0.0-0.50) mg/L Sodium (135-145) mmol/L Potassium (3.5-5.1) mmol/L Chloride (98-107) mmol/L Carbon Dioxide (22-30) mmol/L Anion Gap (5-15) MEQ/L BUN (7-17) mg/dL Creatinine (0.52-1.04) mg/dL Estimated GFR ML/MIN Glucose (74-106) mg/dL Lactic Acid (0.4-2.0) Calcium (8.4-10.2) mg/dL Magnesium (1.6-2.3) mg/dL Total Bilirubin (0.2-1.3) mg/dL AST (14-36) U/L ALT (0-35) U/L Alkaline Phosphatase (38-126) U/L Troponin I < 0.012 (0.000-0.033) ng/mL NT-Pro-B Natriuret Pep 106 (<300) pg/mL Serum Total Protein (6.3-8.2) g/dL Albumin (3.5-5.0) g/dL Urine Color Yellow (Yellow) Urine Appearance Clear (Clear) Urine pH 7.0 (4.6-8.0) Ur Specific [place] <=1.005 (1.005-1.030) Urine Protein Negative (Negative) Urine Glucose (UA) Negative (Negative) mg/dL Urine Ketones Negative (Negative) Urine Blood Small A (Negative) Urine Nitrite Negative (Negative) Urine Bilirubin Negative (Negative) Urine Urobilinogen 0.2 (0.2) mg/dL Ur Leukocyte Esterase Negative (Negative) U Hyaline Cast (Auto) NONE SEEN (0-2) /LPF Urine Microscopic RBC 3-5 (0-5) /HPF Urine Microscopic WBC 0-2 (0-5) /HPF Ur Epithelial Cells None Seen (None Seen) /HPF Urine Bacteria None Seen (None Seen) /HPF Urine Culture Reflexed NO (NO) Influenza Type A Ag NEGATIVE (NEGATIVE) Influenza Type B Ag NEGATIVE (NEGATIVE) RSV (PCR) NEGATIVE (NEGATIVE) SARS-CoV-2 (PCR) NEGATIVE (NEGATIVE) 02/13/24 02/13/24 02/13/24 Range/Units 10:55 10:55 10:55 WBC 6.6 (3.98-10.04) x10^3/uL RBC 4.29 (3.93-5.22) x10^6/uL Hgb 13.9 (11.2-15.7) g/dL Hct 40.5 (34.1-44.9) % MCV 94.4 (79.4-94.8) fL MCH 32.4 H (25.6-32.2) pg MCHC 34.3 (32.2-35.5) g/dL RDW 12.3 (11.7-14.4) % Plt Count 239 (182-369) x10^3/uL MPV 10.2 (9.4-12.3) fL Gran % 55.7 (34.0-71.1) % Immature Gran % (Auto) 1.4 H (0.001-0.429) % Nucleat RBC Rel Count 0.0 (0.00-0.2) % Eos # (Auto) 0.49 H (0.04-0.36) x10^3/uL Immature Gran # (Auto) 0.09 H (0.001-0.031) x10^3u/L Absolute Lymphs (auto) 1.46 (1.18-3.74) x10^3/uL Absolute Monos (auto) 0.84 (0.24-0.86) x10^3/uL Absolute Nucleated RBC 0.00 (0.00-0.012) x10^3u/L Lymphocytes % 22.2 (19.3-51.7) % Monocytes % 12.8 H (4.7-12.5) % Eosinophils % 7.4 H (0.7-5.8) % Basophils % 0.5 (0.1-1.2) % Absolute Granulocytes 3.67 (1.56-6.13) x10^3/uL Basophils # 0.03 (0.01-0.08) x10^3/uL PT 10.6 (9.4-12.5) SECONDS INR 0.97 (0.8-3.0) D-Dimer 0.27 (0.0-0.50) mg/L Sodium 136 (135-145) mmol/L Potassium 3.9 (3.5-5.1) mmol/L Chloride 105 (98-107) mmol/L Carbon Dioxide 23 (22-30) mmol/L Anion Gap 12.1 (5-15) MEQ/L BUN 17 (7-17) mg/dL Creatinine 0.79 (0.52-1.04) mg/dL Estimated GFR 78.9 ML/MIN Glucose 98 (74-106) mg/dL Lactic Acid (0.4-2.0) Calcium 10.0 (8.4-10.2) mg/dL Magnesium 2.3 (1.6-2.3) mg/dL Total Bilirubin 0.60 (0.2-1.3) mg/dL AST 28 (14-36) U/L ALT 18 (0-35) U/L Alkaline Phosphatase 42 (38-126) U/L Troponin I (0.000-0.033) ng/mL NT-Pro-B Natriuret Pep (<300) pg/mL Serum Total Protein 6.9 (6.3-8.2) g/dL Albumin 4.3 (3.5-5.0) g/dL Urine Color (Yellow) Urine Appearance (Clear) Urine pH (4.6-8.0) Ur Specific [place] (1.005-1.030) Urine Protein (Negative) Urine Glucose (UA) (Negative) mg/dL Urine Ketones (Negative) Urine Blood (Negative) Urine Nitrite (Negative) Urine Bilirubin (Negative) Urine Urobilinogen (0.2) mg/dL Ur Leukocyte Esterase (Negative) U Hyaline Cast (Auto) (0-2) /LPF Urine Microscopic RBC (0-5) /HPF Urine Microscopic WBC (0-5) /HPF Ur Epithelial Cells (None Seen) /HPF Urine Bacteria (None Seen) /HPF Urine Culture Reflexed (NO) Influenza Type A Ag (NEGATIVE) Influenza Type B Ag (NEGATIVE) RSV (PCR) (NEGATIVE) SARS-CoV-2 (PCR) (NEGATIVE) 02/13/24 Range/Units 10:45 WBC (3.98-10.04) x10^3/uL RBC (3.93-5.22) x10^6/uL Hgb (11.2-15.7) g/dL Hct (34.1-44.9) % MCV (79.4-94.8) fL MCH (25.6-32.2) pg MCHC (32.2-35.5) g/dL RDW (11.7-14.4) % Plt Count (182-369) x10^3/uL MPV (9.4-12.3) fL Gran % (34.0-71.1) % Immature Gran % (Auto) (0.001-0.429) % Nucleat RBC Rel Count (0.00-0.2) % Eos # (Auto) (0.04-0.36) x10^3/uL Immature Gran # (Auto) (0.001-0.031) x10^3u/L Absolute Lymphs (auto) (1.18-3.74) x10^3/uL Absolute Monos (auto) (0.24-0.86) x10^3/uL Absolute Nucleated RBC (0.00-0.012) x10^3u/L Lymphocytes % (19.3-51.7) % Monocytes % (4.7-12.5) % Eosinophils % (0.7-5.8) % Basophils % (0.1-1.2) % Absolute Granulocytes (1.56-6.13) x10^3/uL Basophils # (0.01-0.08) x10^3/uL PT (9.4-12.5) SECONDS INR (0.8-3.0) D-Dimer (0.0-0.50) mg/L Sodium (135-145) mmol/L Potassium (3.5-5.1) mmol/L Chloride (98-107) mmol/L Carbon Dioxide (22-30) mmol/L Anion Gap (5-15) MEQ/L BUN (7-17) mg/dL Creatinine (0.52-1.04) mg/dL Estimated GFR ML/MIN Glucose (74-106) mg/dL Lactic Acid 1.3 (0.4-2.0) Calcium (8.4-10.2) mg/dL Magnesium (1.6-2.3) mg/dL Total Bilirubin (0.2-1.3) mg/dL AST (14-36) U/L ALT (0-35) U/L Alkaline Phosphatase (38-126) U/L Troponin I (0.000-0.033) ng/mL NT-Pro-B Natriuret Pep (<300) pg/mL Serum Total Protein (6.3-8.2) g/dL Albumin (3.5-5.0) g/dL Urine Color (Yellow) Urine Appearance (Clear) Urine pH (4.6-8.0) Ur Specific [place] (1.005-1.030) Urine Protein (Negative) Urine Glucose (UA) (Negative) mg/dL Urine Ketones (Negative) Urine Blood (Negative) Urine Nitrite (Negative) Urine Bilirubin (Negative) Urine Urobilinogen (0.2) mg/dL Ur Leukocyte Esterase (Negative) U Hyaline Cast (Auto) (0-2) /LPF Urine Microscopic RBC (0-5) /HPF Urine Microscopic WBC (0-5) /HPF Ur Epithelial Cells (None Seen) /HPF Urine Bacteria (None Seen) /HPF Urine Culture Reflexed (NO) Influenza Type A Ag (NEGATIVE) Influenza Type B Ag (NEGATIVE) RSV (PCR) (NEGATIVE) SARS-CoV-2 (PCR) (NEGATIVE) - Progress Progress: improved Air Movement: good Progress Note: 02/13/24 11:08 My medical decision making and the assignment of moderate complexity to this patient's medical issue today is based on review of the patient's past medical history, review of the patient's medication list, reviewed patient drug allergy list, history present illness and physical findings on examination. The workup in this patient includes placement of a intravenous line, CBC, CMP, D-dimer, BNP, troponin level, twelve-lead EKG, viral swabs. In addition, patient will have either a CT scan with contrast or without contrast depending on the value of the D-dimer level. Differential diagnosis includes but is not limited to COPD, chronic bronchitis, myocardial infarction, congestive heart failure, pneumonia, pulmonary embolus, anemia 02/13/24 13:53 I interpreted the patient's laboratory data results. Based on the laboratory data results, the patient has no acute, emergent medical issue. The CT scan of the chest without contrast was interpreted by the radiologist and I reviewed the impression. The impression states new minimal left and right lower lobe patchy groundglass airspace disease. I asked the patient if she has had Keflex and Rocephin in the past. She stated that she has had both of those antibiotics in the past and has not had any adverse reactions to them. Blood Culture(s) Obtained: Yes Antibiotics given: Yes Counseled pt/family regarding: lab results, diagnosis, rad results Medical Desision Making - Independent Historian Additional History obtained from: Spouse - Diagnostic Testing Diagnostic test were ordered, analyzed, and reviewed by me: Yes Radiological Interpretation: Reviewed by me, Teleradiologist Report - Risk of complications The pt has a mod risk of morbidity or mortality based on: Need for prescription drug management - Departure Departure Disposition: Home Clinical Impression: Respiratory infection Condition: Stable Critical Care Time: No Referrals: DELFINA BURTON DO [Primary Care Provider] - Follow up/PCP as directed Additional Instructions: Drink plenty of fluids. Continue using your small-volume nebulizer treatments every 4 hours while awake. Call your primary care provider today, 02/13/2024, to make arrangements for follow-up appointment to be seen in the next 3 to 5 days. At that visit discussed the possibility of being evaluated by marshmallow machine operator. Return to the emergency department if symptoms worsen. Prescriptions: Cefdinir 300 mg PO BID #14 cap Prednisone 10 mg [Deltasone 10 mg] 10 mg PO TID #12 tablet Albuterol 2.5 mg/3 ml Neb [Proventil 2.5 mg/3 ml Neb] 2.5 mg IH Q6H #25 units
[2024-02-13 11:25] LABS: Absolute Neutrophil Ct (ANC) 3.67 x10^3/uL (1.56-6.13); BASOPHIL % 0.5 % (0.1-1.2); Basophil (Absolute #) 0.03 x10^3/uL (0.01-0.08); Eosinophil % 7.4 % (0.7-5.8); Eosinophil (Absolute #) 0.49 x10^3/uL (0.04-0.36); Hematocrit 40.5 % (34.1-44.9); Hemoglobin 13.9 g/dL (11.2-15.7); IMMATURE GRAN # 0.09 x10^3u/L (0.001-0.031); IMMATURE GRAN % 1.4 % (0.001-0.429); Lymphocyte (Absolute #) 1.46 x10^3/uL (1.18-3.74); Lymphocytes % 22.2 % (19.3-51.7); Mean Cell Volume 94.4 fL (79.4-94.8); Mean Corpuscular Hemoglobin 32.4 pg (25.6-32.2); Mean Corpuscular Hgb Concent. 34.3 g/dL (32.2-35.5); Mean Platelet Volume 10.2 fL (9.4-12.3); Monocyte (Absolute #) 0.84 x10^3/uL (0.24-0.86); Monocytes % 12.8 % (4.7-12.5); Neutrophil % 55.7 % (34.0-71.1); Platelet Count 239 x10^3/uL (182-369); Red Blood Count 4.29 x10^6/uL (3.93-5.22); Red Cell Distribution Width 12.3 % (11.7-14.4); White Blood Count 6.6 x10^3/uL (3.98-10.04)
[2024-02-13 11:39] LABS: ALBUMIN 4.3 g/dL (3.5-5.0); ANION GAP 12.1 MEQ/L (5-15); BILIRUBIN,TOTAL 0.6 mg/dL (0.2-1.3); Creatinine 1 0.79 mg/dL (0.52-1.04); EST GLOMERULAR FILTRATION RATE 78.9 ML/MIN; MAGNESIUM 2.3 mg/dL (1.6-2.3); Potassium 3.9 mmol/L (3.5-5.1); Total Protein 6.9 g/dL (6.3-8.2)
[2024-02-13 11:40] LABS: D-DIMER QUANTITATIVE 0.27 mg/L (0.0-0.50); INR 0.97 (0.8-3.0); PROTIME 10.6 SECONDS (9.4-12.5)
[2024-02-13 11:51] LABS: NT PRO BNPII 106 pg/mL (<300); TROPONIN < 0.012 ng/mL (0.000-0.033)
[2024-02-13 11:52] LABS: Appearance Clear (Clear); Bacteria None Seen /HPF (None Seen); Bilirubin Negative (Negative); Blood Small (Negative); Epithelial Cells None Seen /HPF (None Seen); Glucose, Urine Negative (Negative); Hyaline Casts NONE SEEN /LPF (0-2); Ketones Negative (Negative); Leukocyte Esterase Negative (Negative); Nitrite Negative (Negative); Protein,Urine Dip Negative (Negative); Specific Gravity <=1.005 (1.005-1.030); Urobilinogen 0.2 mg/dL (0.2); WBC 0-2 /HPF (0-5)
[2024-02-13 12:01] LABS: INFLUENZA A NEGATIVE (NEGATIVE); INFLUENZA B NEGATIVE (NEGATIVE); RESPIRATORY SYNCTIAL VIRUS NEGATIVE (NEGATIVE); SARS-CoV-2 Xpert Express NEGATIVE (NEGATIVE)
--- NOTE | 2024-02-13 13:27 | XRAY ---
Indication: Short of breath. Cough. Multiple contiguous axial images obtained through the chest without contrast. Comparison: February 21, 2021 Left and right lower lobes now demonstrates minimal patchy groundglass airspace disease without consolidation/effusion. Stable bilateral mid lung subsegmental atelectasis/scarring and small left lower lobe calcified granuloma. Heart not enlarged. Aorta is normal in course and caliber. Stable small mediastinal and chunky left hilar calcified nodes. Again incidental small hiatal hernia. Bony thorax intact again with osteopenia and minimal degenerative changes throughout spine. Limited upper abdomen again demonstrates tiny hepatic/splenic calcific granulomas and cholecystectomy. Impression: 1. New minimal left and right lower lobe patchy groundglass airspace disease. 2. Again chronic findings including atelectasis/scarring, chronic bony findings, hiatal hernia, and old granulomatous disease.
[2024-02-13] MEDS ORDERED: Sterile H2O 10 ml IJ ONE (13:59)
[2024-02-13] MEDS ORDERED: solu-MEDROL ONE (13:59)
[2024-02-13] MEDS ORDERED: ROCEPHIN 1 GM / 100 ML NaCl 1 GM/100 ML IVPB IV ONE (13:59)
[2024-02-13] MEDS: solu-MEDROL 125 MG, Sterile H2O 10 ml 2 ML IV ONE (14:01)
[2024-02-13] MEDS: ROCEPHIN 1 GM / 100 ML NaCl 1 GM/100 ML IVPB IV ONE (14:02)
[2024-02-13 14:29] VITALS: RESP 18
[2024-02-13 14:43] VITALS: BP 128/103; PULSE 58; O2SAT 96
== END 2024-02-13 14:52 | disposition home or self-care (01) ==
LOC: ED 10:32
DX: J98.8 Other specified respiratory disorders (principal); R06.02 Shortness of breath; R05.2 Subacute cough; E78.5 Hyperlipidemia, unspecified; Z79.52 Long term (current) use of systemic steroids; Z79.899 Other long term (current) drug therapy
CPT/HCPCS: 0241U; 36415; 71250; 80053; 81001; 83605; 83735; 83880; 84484; 85025; 85379; 85610; 87040; 93005; 96365; 96374; 99285; 99284; J0696; J2919

== ENCOUNTER 2024-12-12 13:56 | Emergency (ER) | payer MEDICARE ==
[2024-12-12 14:11] VITALS: TEMP 97.8
--- NOTE | 2024-12-12 14:40 | ERPHSYRPT ---
- History of Present Illness Physician History: Choked while eating some rice, patient thinks that she may have aspirated some rice, she initially stated that she thought that food was Stuck in her esophagus, but she now states that when she lies back she becomes very short of breath and she thinks that she may have aspirated the food, , Right after this occurred she attempted to swallow some tea and that came right back up, Since then she has been able to take some warm water without difficulty Timing/Duration: today Severity: moderate Allergies/Adverse Reactions: Penicillins Allergy (Verified 12/24/23 14:00) Home Medications: Atorvastatin Calcium 10 mg PO DAILY 02/21/21 [History] Midodrine HCl 10 mg PO TID 02/21/21 [History] Hyoscyamine Sulfate 1 - 2 tab PO QID PRN 12/07/21 [History] PANTOPRAZOLE 40 mg Tablet [Protonix 40MG Tablet] 40 mg PO HS 12/07/21 [History] Aspirin EC 325 mg [Ecotrin 325 MG] 81 mg PO HS 12/24/23 [History] Bifidobacterium Infantis [Align] 2 tab PO DAILY 12/24/23 [History] Estrogens,Conjugated [Premarin] 0.625 mg PO UD 12/24/23 [History] Multivit-Min/Iron/Folic/Lutein [Multivitamin Women 50 Plus Tab] 1 each PO DAILY 12/24/23 [History] Ondansetron [Ondansetron Odt] 4 mg PO Q6HPRN PRN 12/24/23 [History] Ubidecarenone [Co Q-10] 100 mg PO DAILY 12/24/23 [History] Hx Tetanus, Diphtheria Vaccination/Date Given: Yes Hx Influenza Vaccination/Date Given: Yes Hx Pneumococcal Vaccination/Date Given: Yes Travel Risk - Emerging Infectious Disease Are you exhibiting symptoms associated with any current EIDs: Yes Symptoms: Cough: New Onset, Shortness of Breath - Past Medical History Pertinent Past Medical History: Yes Neurological History: No Pertinent History ENT History: No Pertinent History Cardiac History: Coronary Artery Disease, Other Respiratory History: Sleep Apnea Endocrine Medical History: No Pertinent History Musculoskeletal History: Osteoarthritis, Other GI Medical History: Irritable Bowel History: No Pertinent History Psycho-Social History: No Pertinent History Female Reproductive Disorders: No Pertinent History Other Medical History: ORTHOSTATIC HYPOTENSION, TMJ DYSFUNCTION, LBP, OSTEOPENIA. Dyslipiemia, Stenosis of LAD - Past Surgical History Past Surgical History: Yes Neuro Surgical History: No Pertinent History Cardiac: No Pertinent History Respiratory: No Pertinent History Gastrointestinal: Cholecystectomy Genitourinary: No Pertinent History Musculoskeletal: No Pertinent History Female Surgical History: Hysterectomy Other Surgical History: breast reduction and lift, foot Significant Family History: no pertinent family hx - Social History Smoking Status: Never smoker Exposure to second hand smoke: No Drug Use: none Patient Lives Alone: No - Social Determinants of Health Will the patient participate in the screening: Yes Do you worry about a steady place to live?: No In the past 12 months,have you had to go without utilities?: No Transportation Issues: No Has anyone in your support network made you feel unsafe?: No Have you or anyone in your house had to go w/o enough food: No - Nursing Vital Signs Nursing Vital Signs: Initial Vital Signs Pulse Rate 66 12/12/24 13:55 Respiratory Rate 25 H 12/12/24 13:55 Blood Pressure 165/88 12/12/24 13:55 O2 Sat by Pulse Oximetry 91 L 12/12/24 13:55 Pain Scale Pain Intensity 0 - Physical Exam General Appearance: no apparent distress, alert Eye Exam: PERRL/EOMI, eyes nml inspection Ears, Nose, Throat Exam: normal ENT inspection, TMs normal, pharynx normal, moist mucous membranes Neck Exam: normal inspection, non-tender, supple, full range of motion Respiratory Exam: normal breath sounds, lungs clear, No respiratory distress Cardiovascular Exam: regular rate/rhythm, normal heart sounds, normal peripheral pulses Gastrointestinal/Abdomen Exam: soft, normal bowel sounds, No tenderness, No mass Back Exam: normal inspection, normal range of motion, No CVA tenderness, No vertebral tenderness Extremity Exam: normal inspection, normal range of motion, pelvis stable Neurologic Exam: alert, oriented x 3, cooperative, normal mood/affect, nml cerebellar function, nml station & gait, sensation nml, No motor deficits Skin Exam: normal color, warm, dry, No rash Lymphatic Exam: No adenopathy SpO2 Interpretation: normal SpO2: 100 Ordered Tests: Active Orders 24 hr Category Date Time Status CHEST 1 VIEW (PORTABLE) Stat Exams 12/12/24 14:21 Taken BMP Stat Lab 12/12/24 15:20 Completed CBC W DIFF Stat Lab 12/12/24 15:20 Completed Respiratory Therapy Assessment DAILY RT 12/12/24 15:31 Active Medication Summary Discontinued Medications Generic Name Dose Route Start Last Admin Trade Name Paco PRN Reason Stop Dose Admin Albuterol Sulfate 2.5 mg 12/12/24 15:11 12/12/24 15:29 Albuterol Sulfate 2.5 Mg/3 Ml Neb IH 12/12/24 15:12 2.5 mg STAT ONE Administration Albuterol Sulfate Confirm 12/12/24 15:23 Albuterol Sulfate 2.5 Mg/3 Ml Neb Administered 12/12/24 15:24 Dose 2.5 mg IH .STK-MED ONE Lab/Rad Data: Laboratory Result Diagrams 12/12/24 15:20 12/12/24 15:20 Laboratory Results 12/12/24 12/12/24 Range/Units 15:20 15:20 WBC 7.4 (3.98-10.04) x10^3/uL RBC 4.02 (3.93-5.22) x10^6/uL Hgb 13.2 (11.2-15.7) g/dL Hct 38.2 (34.1-44.9) % MCV 95.0 H (79.4-94.8) fL MCH 32.8 H (25.6-32.2) pg MCHC 34.6 (32.2-35.5) g/dL RDW 11.8 (11.7-14.4) % Plt Count 290 (182-369) x10^3/uL MPV 9.8 (9.4-12.3) fL Gran % 63.4 (34.0-71.1) % Immature Gran % (Auto) 1.1 H (0.001-0.429) % Nucleat RBC Rel Count 0.0 (0.00-0.2) % Eos # (Auto) 0.05 (0.04-0.36) x10^3/uL Immature Gran # (Auto) 0.08 H (0.001-0.031) x10^3u/L Absolute Lymphs (auto) 1.79 (1.18-3.74) x10^3/uL Absolute Monos (auto) 0.74 (0.24-0.86) x10^3/uL Absolute Nucleated RBC 0.00 (0.00-0.012) x10^3u/L Lymphocytes % 24.1 (19.3-51.7) % Monocytes % 10.0 (4.7-12.5) % Eosinophils % 0.7 (0.7-5.8) % Basophils % 0.7 (0.1-1.2) % Absolute Granulocytes 4.71 (1.56-6.13) x10^3/uL Basophils # 0.05 (0.01-0.08) x10^3/uL Sodium 137 (135-145) mmol/L Potassium 3.3 L (3.5-5.1) mmol/L Chloride 104 (98-107) mmol/L Carbon Dioxide 25 (22-30) mmol/L Anion Gap 11.1 (5-15) MEQ/L BUN 14 (7-17) mg/dL Creatinine 1.01 (0.52-1.04) mg/dL Estimated GFR 58.4 ML/MIN Glucose 111 H (74-106) mg/dL Calcium 9.8 (8.4-10.2) mg/dL - Progress Progress Note: 12/12/24 16:22 Discussed labs and chest x-ray, patient received albuterol aerosol treatment she continues to feel like she cannot breathe very well when she lies down her oxygenation has remained around 100%, discussed case with hospitalist/pulmonary medicine at [facility] and they recommend patient follow-up in clinic - Departure Departure Disposition: Home Clinical Impression: Aspiration of food Qualifiers: Encounter type: initial encounter Qualified Code(s): T17.928A - Food in respiratory tract, part unspecified causing other injury, initial encounter; W44.F3XA - Food entering into or through a natural orifice, initial encounter Condition: Stable Critical Care Time: No Referrals: DELFINA BURTON DO [Primary Care Provider, [facility]] - Follow up/PCP as directed Instructions: Choking Additional Instructions: call your [employer] Supervisor tomorrow to set up appointment in clinic, Continue home medications
[2024-12-12] MEDS ORDERED: PROVENTIL 2.5 MG/3 ML NEB IH ONE (15:23)
[2024-12-12 15:24] LABS: BASOPHIL % 0.7 % (0.1-1.2); Basophil (Absolute #) 0.05 x10^3/uL (0.01-0.08); Eosinophil (Absolute #) 0.05 x10^3/uL (0.04-0.36); Hematocrit 38.2 % (34.1-44.9); Hemoglobin 13.2 g/dL (11.2-15.7); IMMATURE GRAN # 0.08 x10^3u/L (0.001-0.031); IMMATURE GRAN % 1.1 % (0.001-0.429); Lymphocyte (Absolute #) 1.79 x10^3/uL (1.18-3.74); Mean Corpuscular Hemoglobin 32.8 pg (25.6-32.2); Mean Corpuscular Hgb Concent. 34.6 g/dL (32.2-35.5); Monocyte (Absolute #) 0.74 x10^3/uL (0.24-0.86); NUCLEATED RBC # 0.00 x10^3u/L (0.00-0.012); NUCLEATED RBC % 0.0 % (0.00-0.2); Platelet Count 290 x10^3/uL (182-369); Red Blood Count 4.02 x10^6/uL (3.93-5.22); White Blood Count 7.4 x10^3/uL (3.98-10.04)
[2024-12-12] MEDS: PROVENTIL 2.5 MG/3 ML NEB IH ONE (15:29)
[2024-12-12 15:37] VITALS: O2SAT 100
[2024-12-12 15:37] LABS: Calcium 9.8 mg/dL (8.4-10.2); Carbon Dioxide 25.0 mmol/L (22-30); Creatinine 1 1.01 mg/dL (0.52-1.04); EST GLOMERULAR FILTRATION RATE 58.4 ML/MIN; Glucose 111.0 mg/dL (74-106); Potassium 3.3 mmol/L (3.5-5.1)
[2024-12-12 16:27] VITALS: BP 124/69; PULSE 60; RESP 17
--- NOTE | 2024-12-12 18:55 | XRAY ---
Indication: Aspiration. Comparison: October 25, 2024 Portable chest remains clear again with incidental left hilar/left lung calcified granulomas. Heart not enlarged again with mild tortuous descending aorta. Bony thorax intact again with osteopenia and minimal degenerative changes. No new/acute findings.
== END 2024-12-12 16:31 | disposition home or self-care (01) ==
LOC: ED 13:56
DX: T17.928A Food in respiratory tract, part unspecified causing other injury, initial encounter (principal); W44.F3XA Food entering into or through a natural orifice, initial encounter; Z79.899 Other long term (current) drug therapy